=== PATIENT | female | born 1965 | race Caucasian/White ===

== ENCOUNTER 2018-03-13 15:04 | Emergency (ER) | payer OTHER ==
[2018-03-13] MEDS ORDERED: ALBUTEROL 2.5 MG/3 ML NEB SOL ONE (15:59)
[2018-03-13] MEDS ORDERED: IPRATROPIUM BROM 0.5MG/2.5ML ONE (15:59)
[2018-03-13 16:09] LABS: Urine Blood NEGATIVE (NEG); Urine Glucose TRACE (NEG); Urine Protein 1+ (NEG); Urine Specific Gravity >1.030 (1.005-1.030)
[2018-03-13 16:10] LABS: Absolute Lymphocytes (CBC) 1.6 K/uL (0.7-4.9); Absolute Monocytes 1.1 K/uL (0.1-1.3); Absolute Neutrophil 7.2 K/uL (1.8-8.0); Basophils % 0.4 % (0-1.3); Eosinophils % 2.6 % (0-4.4); Hematocrit 38.9 % (36.0-45.0); Lymphocytes % 15.9 % (15.3-44.8); MCH 30.6 pg (27.0-35.0); MCV 90.8 fL (80-100); MPV 8.8 fL (7.6-11.3); RBC Red Blood Cell Count 4.29 M/uL (3.86-4.86)
[2018-03-13 16:34] LABS: Albumin 3.5 g/dL (3.4-5.0); Bilirubin Total 0.5 mg/dL (0.2-1.0); Protein, Total 7.8 g/dL (6.4-8.2)
[2018-03-13 16:37] LABS: Potassium 2.8 mmol/L (3.5-5.1)
[2018-03-13] MEDS ORDERED: POTASSIUM CL SA 10 MEQ TAB PO ONE (17:01)
--- NOTE | 2018-03-13 17:17 | ER ---
Nurse's Notes [facility] Name: Luanne Sagastume Age: 53 yrs Sex: Female : 1965 Arrival Date: 03/13/2018 Time: 15:06 Bed 13 Private MD: None, None Diagnosis: Urinary tract infection, site not specified;Acute upper respiratory infection, unspecified;Cutaneous abscess of left upper limb;Cutaneous abscess of right upper limb;Chronic obstructive pulmonary disease, unspecified;Hypokalemia Presentation: 03/13 15:18 Presenting complaint: Patient states: i got bit by spider on my L arm, R arm, i noticed hj it Sunday; reports fever and chills; denies SOB;. Transition of care: patient was not received from another setting of care. Onset of symptoms was March 13, 2018. Risk Assessment: Do you want to hurt yourself or someone else? Patient reports no desire to harm self or others. Initial Sepsis Screen: Does the patient meet any 2 criteria? No. Patient's initial sepsis screen is negative. Does the patient have a suspected source of infection? No. Patient's initial sepsis screen is negative. Care prior to arrival: None. 15:18 Method Of Arrival: Ambulatory 15:18 Acuity: YINA 4 hj Triage Assessment: 15:20 General: Appears in no apparent distress. uncomfortable, Behavior is calm, cooperative, hj appropriate for age. Pain: Complains of pain in right arm and left arm. 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 - Social history:: Smoking status: Patient uses tobacco products, smokes one-half pack cigarettes per day, Patient/guardian denies using alcohol. - Ebola Screening: : Patient negative for fever greater than or equal to 101.5 degrees Fahrenheit, and additional compatible Ebola Virus Disease symptoms Patient denies exposure to infectious person Patient denies travel to an Ebola-affected area in the 21 days before illness onset. - Family history:: not pertinent. - Hospitalizations: : No recent hospitalization is reported. Screenin:20 Abuse screen: Denies threats or abuse. Denies injuries from another. Nutritional hj screening: No deficits noted. Tuberculosis screening: No symptoms or risk factors identified. Fall Risk None identified. Assessment: 15:40 General: Appears comfortable, Behavior is calm, cooperative. Pain: Complains of pain in aa5 right arm and left arm Pain does not radiate. Pain currently is 5 out of 10 on a pain scale. Quality of pain is described as tender, Is continuous. Neuro: Level of Consciousness is awake, alert, obeys commands, Oriented to person, place, time, situation. Cardiovascular: Heart tones S1 S2 present Rhythm is regular. Respiratory: Airway is patent Respiratory effort is even, unlabored, Respiratory pattern is regular, symmetrical, Breath sounds are clear bilaterally. GI: No signs and/or symptoms were reported involving the gastrointestinal system. : Reports burning with urination. EENT: Throat is clear with gag reflex present, Pt reports hoarse voice. Pt states "the poison of the spider is affecting my voice" . Derm: Skin is pink, warm \\T\\ dry. two scabbed wounds noted, one to right AC and one to left AC with mild swelling surrounding the wound, no redness or drainage noted. Musculoskeletal: Range of motion: intact in all extremities. 16:30 Reassessment: Patient and/or family updated on plan of care and expected duration. Pain aa5 level reassessed. Patient is alert, oriented x 3, equal unlabored respirations, skin warm/dry/pink. 16:55 Reassessment: Patient and/or family updated on plan of care and expected duration. Pain aa5 level reassessed. Patient is alert, oriented x 3, equal unlabored respirations, skin warm/dry/pink. Pt states "I take potassium at home but I haven't taken it in about 2 weeks because I am moving and I can't find the pills", pt was educated about importance of taking potassium replacement medication, pt verbalized understanding . 17:35 Reassessment: Patient is alert, oriented x 3, equal unlabored respirations, skin aa5 warm/dry/pink. Vital Signs: 15:21 BP 104 / 71; Pulse 100; Resp 18; Temp 97.9(O); Pulse Ox 93% on R/A; Weight 56.7 kg; hj Height 5 ft. 6 in. (167.64 cm); Pain 5/10; 16:00 BP 109 / 69; Pulse 90; Resp 16 S; Pulse Ox 100% on Nebulizer Mask; aa5 15:21 Body Mass Index 20.18 (56.70 kg, 167.64 cm) hj ED Course: 15:06 Patient arrived in ED. mr 15:07 None, None is Private Physician. mr 15:19 Triage completed. hj 15:20 Arm band placed on right wrist. hj 15:21 Patient has correct armband on for positive identification. Bed in low position. Call hj light in reach. Side rails up X 1. 15:24 Colette Shah FNP is PHCP. kav 15:24 Luis Manuel Gomez MD is Attending Physician. kav 15:31 Debra Aguilar, ALDO is Primary Nurse. aa5 16:00 Initial lab(s) drawn, by me, sent to lab. Inserted saline lock: 22 gauge in right hand, aa5 using aseptic technique. Blood collected. 16:00 No provider procedures requiring assistance completed. aa5 17:35 IV discontinued, intact, bleeding controlled, No redness/swelling at site. Pressure aa5 dressing applied. Administered Medications: 15:50 Drug: DuoNeb (3:1) (2.5 mg - 0.5 mg) 3 ml Route: Nebulizer; aa5 16:10 Follow up: Response: No adverse reaction aa5 16:55 Drug: Potassium Chloride 40 mEq Route: PO; aa5 17:35 Follow up: Response: No adverse reaction aa5 17:19 Drug: Potassium Chloride 20 mEq Route: PO; aa5 17:35 Follow up: Response: No adverse reaction aa5 Outcome: 17:17 Discharge ordered by . kav 17:35 Discharged to home ambulatory. aa5 17:35 Condition: stable 17:35 Discharge instructions given to patient, Instructed on discharge instructions, follow up and referral plans. medication usage, Demonstrated understanding of instructions, follow-up care, medications, Prescriptions given X 3. 17:36 Patient left the ED. aa5 Signatures: Colette Shah FNP FNP kav Rivera, Maria mr AguilarDebra, RN RN aa5 Gulshan Black RN RN hj Corrections: (The following items were deleted from the chart) 16:40 15:40 : No signs and/or symptoms were reported regarding the genitourinary system. [id number] 17:21 00:00 Reassessment: Patient and/or family updated on plan of care and expected aa5 duration. Pain level reassessed. Patient is alert, oriented x 3, equal unlabored respirations, skin warm/dry/pink. Pt states "I take potassium at home but I haven't taken it in about 2 weeks because I am moving and I can't find the pills", pt was educated about importance of taking potassium replacement medication, pt verbalized understanding . aa5
--- NOTE | 2018-03-13 17:18 | EDPHYS ---
Physician Documentation [facility] Name: Luanne Sagastume Age: 53 yrs Sex: Female : 1965 Arrival Date: 03/13/2018 Time: 15:06 Bed 13 Private MD: None, None ED Physician Luis Manuel Gomez HPI: 03/13 15:33 This 53 yrs old Female presents to ER via Ambulatory with complaints of Skin kav Sore(s). 15:34 The patient was bitten on the right arm and left arm. Onset: The symptoms/episode kav began/occurred acutely, 5 day(s) ago. Secondary to the bite the patient reports lesion LUE \T\ RUE. Associated signs and symptoms: Pertinent positives: erythema at site, Pertinent negatives: fever. Severity of symptoms: At their worst the symptoms were very mild, just prior to arrival. The patient has experienced similar episodes in the past, multiple times. The patient has not recently seen a physician, reports not seen by pcp x 2-3 years. 17:18 patient reports that she has not taken her potassium medication for the past two weeks. 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 - Social history:: Smoking status: Patient uses tobacco products, smokes one-half pack cigarettes per day, Patient/guardian denies using alcohol. - Ebola Screening: : Patient negative for fever greater than or equal to 101.5 degrees Fahrenheit, and additional compatible Ebola Virus Disease symptoms Patient denies exposure to infectious person Patient denies travel to an Ebola-affected area in the 21 days before illness onset. - Family history:: not pertinent. - Hospitalizations: : No recent hospitalization is reported. ROS: 15:34 Constitutional: Negative for fever, chills, and weight loss, Eyes: Negative for injury, kav pain, redness, and discharge, ENT: Negative for injury, pain, and discharge, Neck: Negative for injury, pain, and swelling, Cardiovascular: Negative for chest pain, palpitations, and edema, Abdomen/GI: Negative for abdominal pain, nausea, vomiting, diarrhea, and constipation, Back: Negative for injury and pain, MS/Extremity: Negative for injury and deformity, Neuro: Negative for headache, weakness, numbness, tingling, and seizure, Psych: Negative for depression, anxiety, suicide ideation, homicidal ideation, and hallucinations, Allergy/Immunology: Negative for hives, rash, and allergies, Endocrine: Negative for neck swelling, polydipsia, polyuria, polyphagia, and marked weight changes, Hematologic/Lymphatic: Negative for swollen nodes, abnormal bleeding, and unusual bruising. 15:34 Respiratory: Positive for cough, with yellow sputum, Negative for shortness of breath, wheezing. 15:34 : Positive for burning with urination. 15:34 Skin: Positive for lesions, of the left arm and right arm. Exam: 15:34 Constitutional: This is a well developed, well nourished patient who is awake, alert, kav and in no acute distress. Head/Face: Normocephalic, atraumatic. Eyes: Pupils equal round and reactive to light, extra-ocular motions intact. Lids and lashes normal. Conjunctiva and sclera are non-icteric and not injected. Cornea within normal limits. Periorbital areas with no swelling, redness, or edema. ENT: Nares patent. No nasal discharge, no septal abnormalities noted. Tympanic membranes are normal and external auditory canals are clear. Oropharynx with no redness, swelling, or masses, exudates, or evidence of obstruction, uvula midline. Mucous membranes moist. Neck: Trachea midline, no thyromegaly or masses palpated, and no cervical lymphadenopathy. Supple, full range of motion without nuchal rigidity, or vertebral point tenderness. No Meningismus. Chest/axilla: Normal chest wall appearance and motion. Nontender with no deformity. No lesions are appreciated. Cardiovascular: Regular rate and rhythm with a normal S1 and S2. No gallops, murmurs, or rubs. Normal PMI, no JVD. No pulse deficits. Back: No spinal tenderness. No costovertebral tenderness. Full range of motion. MS/ Extremity: Pulses equal, no cyanosis. Neurovascular intact. Full, normal range of motion. Neuro: Awake and alert, GCS 15, oriented to person, place, time, and situation. Cranial nerves II-XII grossly intact. Motor strength 5/5 in all extremities. Sensory grossly intact. Cerebellar exam normal. Normal gait. Psych: Awake, alert, with orientation to person, place and time. Behavior, mood, and affect are within normal limits. 15:34 Respiratory: the patient does not display signs of respiratory distress, Respirations: normal, no acute changes, Breath sounds: decreased breath sounds, that are mild, are located in both bases. 15:34 Skin: Appearance: normal except for affected area. Vital Signs: 15:21 BP 104 / 71; Pulse 100; Resp 18; Temp 97.9(O); Pulse Ox 93% on R/A; Weight 56.7 kg; hj Height 5 ft. 6 in. (167.64 cm); Pain 5/10; 16:00 BP 109 / 69; Pulse 90; Resp 16 S; Pulse Ox 100% on Nebulizer Mask; aa5 15:21 Body Mass Index 20.18 (56.70 kg, 167.64 cm) hj MDM: 15:31 Medical screening is not applicable. [facility] 15:34 Data reviewed: vital signs, nurses notes. [facility] 03/13 15:32 Order name: CBC with Diff; Complete Time: 16:20 [facility] 03/13 15:32 Order name: CMP; Complete Time: 16:48 [facility] 03/13 16:04 Order name: Urine Dipstick--Ancillary (enter results); Complete Time: 16:20 03/13 15:32 Order name: Urine Dipstick-Ancillary (obtain specimen); Complete Time: 16:06 [facility] Administered Medications: 15:50 Drug: DuoNeb (3:1) (2.5 mg - 0.5 mg) 3 ml Route: Nebulizer; aa5 16:10 Follow up: Response: No adverse reaction aa5 16:55 Drug: Potassium Chloride 40 mEq Route: PO; aa5 17:35 Follow up: Response: No adverse reaction aa5 17:19 Drug: Potassium Chloride 20 mEq Route: PO; aa5 17:35 Follow up: Response: No adverse reaction aa5 Disposition: 18:46 Co-signature as Attending Physician, Luis Manuel Gomez MD. rn Disposition: 03/13/18 17:17 Discharged to Home. Impression: Urinary tract infection, site not specified, Acute upper respiratory infection, unspecified, Cutaneous abscess of left upper limb, Cutaneous abscess of right upper limb, Chronic obstructive pulmonary disease, unspecified, Hypokalemia. - Condition is Stable. - Discharge Instructions: Skin Abscess, Chronic Obstructive Pulmonary Disease, Urinary Tract Infection, Adult, [id number], Upper Respiratory Infection, Adult, Kitv-im-Lpko, Hypokalemia. - Prescriptions for Cipro 500 mg Oral Tablet - take 1 tablet by ORAL route every 12 hours for 7 days; 14 tablet. benzonatate 100 mg Oral Capsule - take 1 capsule by ORAL route 3 times per day; 30 capsule. Combivent Respimat 20- 100 mcg/actuation Inhalation mist - inhale 1 puff by INHALATION route 4 times per day not to exceed 6 puffs in 24hrs; 1 unit. - Medication Reconciliation Form, Thank You Letter, Antibiotic Education, Prescription Opioid Use form. - Follow up: Private Physician; When: 5 - 6 days; Reason: Recheck today's complaints, Continuance of care, Re-evaluation by your physician. - Problem is new. - Symptoms have improved. Signatures: Dispatcher [employer] EDColette Villafuerte, MANIFEST CLERK MANIFEST CLERK Luis Manuel Toledo MD MD rn Calderon, Audri, RN RN aa5 Gulshan Black RN RN Corrections: (The following items were deleted from the chart) 17:36 17:17 03/13/2018 17:17 Discharged to Home. Impression: Urinary tract infection, site aa5 not specified; Acute upper respiratory infection, unspecified; Cutaneous abscess of left upper limb; Cutaneous abscess of right upper limb; Chronic obstructive pulmonary disease, unspecified; Hypokalemia. Condition is Stable. Discharge Instructions: Skin Abscess, Chronic Obstructive Pulmonary Disease, Urinary Tract Infection, Adult, Rfin-[id number], Upper Respiratory Infection, Adult, Irhl-ax-[id number]. Prescriptions for Cipro 500 mg Oral Tablet - take 1 tablet by ORAL route every 12 hours for 7 days; 14 tablet, benzonatate 100 mg Oral Capsule - take 1 capsule by ORAL route 3 times per day; 30 capsule. and Forms are Medication Reconciliation Form, Thank You Letter, Antibiotic Education, Prescription Opioid Use. Follow up: Private Physician; When: 5 - 6 days; Reason: Recheck today's complaints, Continuance of care, Re-evaluation by your physician. Problem is new. Symptoms have improved. [email or web address]
[2018-03-13 17:40] VITALS: BP 109/69; TEMP 97.9; O2SAT 100
== END 2018-03-13 17:36 | disposition home or self-care (01) ==
LOC: ER 15:04
DX: N39.0 Urinary tract infection, site not specified (principal); L02.414 Cutaneous abscess of left upper limb; L02.413 Cutaneous abscess of right upper limb; J06.9 Acute upper respiratory infection, unspecified; E87.6 Hypokalemia; J44.9 Chronic obstructive pulmonary disease, unspecified; E78.5 Hyperlipidemia, unspecified; E78.00 Pure hypercholesterolemia, unspecified; E03.9 Hypothyroidism, unspecified; F43.10 Post-traumatic stress disorder, unspecified
CPT/HCPCS: 36415; 80053; 81003; 85025; 94640; 99284

== ENCOUNTER 2019-03-04 19:10 | Emergency (ER) | payer OTHER ==
--- OUTSIDE RECORDS SUMMARY | 2019-03-04 19:11 | XMS REPORT ---
:1965 [facility] Address [address] [place] [address] Dr. Nichols [address] [place] [id number] Care Team Providers Name Role Phone Unavailable Unavailable Unavailable Problems This patient has no known problems. Allergies, Adverse Reactions, Alerts This patient has no known allergies or adverse reactions. Medications This patient has no known medications.
[2019-03-04] MEDS ORDERED: HYDROCODONE/APAP 7.5/325 MG TAB ONE (19:49)
--- NOTE | 2019-03-04 20:09 | RAD REPORT ---
EXAM DESCRIPTION: RAD - Hand Right 3 View - 03/04/2019 7:57 pm CLINICAL HISTORY: Fall, right hand pain COMPARISON: None. FINDINGS: No fracture is identified. There is no dislocation or periosteal reaction noted. No forei gn body. Soft tissues over the dorsum of the hand are prominent. IMPRESSION: Soft tissue swelling is evident over the dorsum of the hand. No acute bone or joint finding.
--- NOTE | 2019-03-04 20:25 | EDPHYS ---
Physician Documentation [facility] Name: Luanne Sagastume Age: 54 yrs Sex: Female : 1965 Arrival Date: 03/04/2019 Time: 19:17 Bed 5 Private MD: ED Physician Hugo Crane HPI: 03/05 06:42 This 54 yrs old Female presents to ER via Ambulatory with complaints of Hand tw4 Injury. 06:42 The patient or guardian reports a contusion, pain. The complaints affect the MCP of tw4 right index finger, MCP of right middle finger and MCP of right ring finger. Context: The problem was sustained at home. Onset: The symptoms/episode began/occurred yesterday. Modifying factors: The symptoms are alleviated by nothing, the symptoms are aggravated by nothing. Associated signs and symptoms: The patient has no apparent associated signs or symptoms. The patient has not experienced similar symptoms in the past. 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 - Social history:: Smoking status: Patient/guardian denies using tobacco. - Ebola Screening: : No symptoms or risks identified at this time No symptoms or risks identified at this time. ROS: 03/05 06:42 Constitutional: Negative for fever, chills, and weight loss, Eyes: Negative for injury, tw4 pain, redness, and discharge, Cardiovascular: Negative for chest pain, palpitations, and edema, Respiratory: Negative for shortness of breath, cough, wheezing, and pleuritic chest pain, Abdomen/GI: Negative for abdominal pain, nausea, vomiting, diarrhea, and constipation. MS/extremity: Positive for injury or acute deformity, contusion, pain. Exam: 06:42 Constitutional: This is a well developed, well nourished patient who is awake, alert, tw4 and in no acute distress. Head/Face: Normocephalic, atraumatic. 06:42 Musculoskeletal/extremity: Extremities: noted in the dorsal aspect of proximal phalanx of right index finger, dorsal aspect of proximal phalanx of right middle finger and dorsal aspect of proximal phalanx of right ring finger: contusion, erythema, pain, swelling, tenderness. Vital Signs: 03/04 19:33 BP 152 / 95; Pulse 92; Resp 18; Temp 98.1(TE); Pulse Ox 98% on R/A; Weight 62.14 kg; ea Height 5 ft. 6 in. (167.64 cm); Pain 0/10; 20:43 BP 117 / 81; Pulse 86; Resp 16; Temp 98; Pulse Ox 99% on R/A; rv 19:33 Body Mass Index 22.11 (62.14 kg, 167.64 cm) ea Procedures: 03/05 06:42 Splinting: Splint applied to dorsum of right hand and dorsal aspect of right wrist tw4 using wrist splint, applied by nurse. Examined by me, post splint application: neurovascular intact, 2+ distal pulses palpable, brisk capillary refill noted, Patient tolerated well. MDM: 03/04 19:20 Patient medically screened. tw4 03/05 06:42 Data reviewed: vital signs, nurses notes. Test interpretation: by ED physician or tw4 midlevel provider: plain radiologic studies. Counseling: I had a detailed discussion with the patient and/or guardian regarding: the historical points, exam findings, and any diagnostic results supporting the discharge/admit diagnosis. ED course: x ray negative for fracture. will place on antibiotics due to swelling and erythema to treat for cellulitis . 03/04 19:26 Order name: Hand Right 3 View XRAY tw4 Administered Medications: 03/04 19:30 Drug: Lyndora (7.5 mg-325 mg) 1 tabs Route: PO; rv 20:43 Follow up: Response: No adverse reaction; Pain is decreased rv Disposition: 03/04/19 20:24 Discharged to Home. Impression: Contusion of right hand, Cellulitis of right upper limb. - Condition is Stable. - Discharge Instructions: Contusion, Cellulitis, Adult, Hand Contusion. - Prescriptions for Ibuprofen 800 mg Oral Tablet - take 1 tablet by ORAL route every 8 hours As needed take with food; 30 tablet. Tylenol- Codeine #3 300-30 mg Oral Tablet - take 2 tablet by ORAL route every 6 hours As needed; 6 tablet. Cleocin 300 mg Oral Capsule - take 1 capsule by ORAL route every 6 hours for 10 days; 40 capsule. - Medication Reconciliation Form, Thank You Letter, Antibiotic Education, Prescription Opioid Use form. - Follow up: Private Physician; When: Upon discharge from the Emergency Department; Reason: If symptoms return, Recheck today's complaints, Continuance of care. Follow up: Jono Loya MD; When: Upon discharge from the Emergency Department; Reason: If symptoms return, Recheck today's complaints, Continuance of care. - Problem is new. - Symptoms have improved. Signatures: Dispatcher [employer] EDNicolette Gonzalez RN RN Hugo German MD MD tw4 Jose Arcos RN RN rv Corrections: (The following items were deleted from the chart) 20:44 20:24 03/04/2019 20:24 Discharged to Home. Impression: Contusion of right hand; rv Cellulitis of right upper limb. Condition is Stable. Forms are Medication Reconciliation Form, Thank You Letter, Antibiotic Education, Prescription Opioid Use. Follow up: Private Physician; When: Upon discharge from the Emergency Department; Reason: If symptoms return, Recheck today's complaints, Continuance of care. Follow up: Jono Loya; When: Upon discharge from the Emergency Department; Reason: If symptoms return, Recheck today's complaints, Continuance of care. Problem is new. Symptoms have improved. tw4 20:53 20:44 03/04/2019 20:24 Discharged to Home. Impression: Contusion of right hand; rv Cellulitis of right upper limb. Condition is Stable. Discharge Instructions: Contusion, Cellulitis, Adult, Hand Contusion. Prescriptions for Ibuprofen 800 mg Oral Tablet - take 1 tablet by ORAL route every 8 hours As needed take with food; 30 tablet, Tylenol-Codeine #3 300-30 mg Oral Tablet - take 2 tablet by ORAL route every 6 hours As needed; 6 tablet. and Forms are Medication Reconciliation Form, Thank You Letter, Antibiotic Education, Prescription Opioid Use. Follow up: Private Physician; When: Upon discharge from the Emergency Department; Reason: If symptoms return, Recheck today's complaints, Continuance of care. Follow up: Jono Loya; When: Upon discharge from the Emergency Department; Reason: If symptoms return, Recheck today's complaints, Continuance of care. Problem is new. Symptoms have improved. rv
--- NOTE | 2019-03-04 20:25 | ER ---
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 Transition of care: patient was not received from another setting of care. Onset of symptoms was March 04, 2019. Risk Assessment: Do you want to hurt yourself or someone else? Patient reports no desire to harm self or others. Initial Sepsis Screen: Does the patient meet any 2 criteria? No. Patient's initial sepsis screen is negative. Does the patient have a suspected source of infection? No. Patient's initial sepsis screen is negative. Care prior to arrival: None. 19:29 Method Of Arrival: Ambulatory ea 19:29 Acuity: YINA 4 ea Triage Assessment: 19:34 General: Appears in no apparent distress. General: Behavior is calm, cooperative, ea appropriate for age. Pain: Complains of pain in right hand. Injury Description: swelling to right hand. 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 - Social history:: Smoking status: Patient/guardian denies using tobacco. - Ebola Screening: : No symptoms or risks identified at this time No symptoms or risks identified at this time. Screenin:32 Abuse screen: Denies threats or abuse. Denies injuries from another. Nutritional rv screening: No deficits noted. Tuberculosis screening: No symptoms or risk factors identified. Fall Risk None identified. Assessment: 19:30 General: Appears in no apparent distress. uncomfortable, Behavior is calm, cooperative. rv Pain: Complains of pain in right hand. Neuro: Level of Consciousness is awake, alert, obeys commands, Oriented to person, place, time, situation. Cardiovascular: Patient's skin is warm and dry. Respiratory: Airway is patent. GI: No signs and/or symptoms were reported involving the gastrointestinal system. : No signs and/or symptoms were reported regarding the genitourinary system. EENT: No signs and/or symptoms were reported regarding the EENT system. Derm: Skin temperature is warm. Musculoskeletal: Swelling present in right hand. Vital Signs: 19:33 BP 152 / 95; Pulse 92; Resp 18; Temp 98.1(TE); Pulse Ox 98% on R/A; Weight 62.14 kg; ea Height 5 ft. 6 in. (167.64 cm); Pain 0/10; 20:43 BP 117 / 81; Pulse 86; Resp 16; Temp 98; Pulse Ox 99% on R/A; rv 19:33 Body Mass Index 22.11 (62.14 kg, 167.64 cm) ea ED Course: 19:17 Patient arrived in ED. es 19:20 Hugo Crane MD is Attending Physician. tw4 19:24 Jose Arcos, RN is Primary Nurse. rv 19:30 Triage completed. ea 19:30 Patient has correct armband on for positive identification. Bed in low position. Call ea light in reach. 19:33 Arm band placed on left wrist. Patient placed in an exam room, on a stretcher, on pulse ea oximetry. 20:00 Hand Right 3 View XRAY In Process Unspecified. EDMS 20:24 Jono Loya MD is Referral Physician. tw4 20:44 No provider procedures requiring assistance completed. Patient did not have IV access rv during this emergency room visit. 20:44 Velcro wrist splint applied to right wrist. rv 20:45 Primary Nurse role handed off by Jose Arcos, ALDO tw4 20:53 Jose Arcos, RN is Primary Nurse. rv Administered Medications: 19:30 Drug: Lutcher (7.5 mg-325 mg) 1 tabs Route: PO; rv 20:43 Follow up: Response: No adverse reaction; Pain is decreased rv Outcome: 20:24 Discharge ordered by MD. das 20:44 Discharged to home ambulatory. rv 20:44 Condition: good 20:44 Discharge instructions given to patient, Instructed on discharge instructions, follow up and referral plans. medication usage, Demonstrated understanding of instructions, follow-up care, medications, Prescriptions given X 4. 20:44 Patient left the ED. rv 20:53 Patient left the ED. rv Signatures: Dispatcher [employer] Mimi Kwong Elena, RN Hugo Brower ea, MD MD tw4 Jose Arcos RN RN rv
[2019-03-04 20:58] VITALS: BP 117/81; TEMP 98; O2SAT 99
== END 2019-03-04 20:53 | disposition home or self-care (01) ==
LOC: ER 19:10
DX: S60.221A Contusion of right hand, initial encounter (principal); Y92.009 Unspecified place in unspecified non-institutional (private) residence as the place of occurrence of the external cause; L03.113 Cellulitis of right upper limb
CPT/HCPCS: 99284

== ENCOUNTER 2019-04-08 08:41 | Inpatient (IN) | payer OTHER ==
--- OUTSIDE RECORDS SUMMARY | 2019-04-08 08:47 | XMS REPORT ---
:1965 [facility] [address] [place] [address] Dr. Nichols [address] [place] [id number] Care Team Providers Name Role Phone Unavailable Unavailable Unavailable Problems This patient has no known problems. Allergies, Adverse Reactions, Alerts This patient has no known allergies or adverse reactions. Medications This patient has no known medications.
[2019-04-08] MEDS ORDERED: MIDAZOLAM HCL 2 MG/2 ML INJ ONE ×2 (09:13→11:53)
[2019-04-08 09:17] LABS: Arterial Blood Carboxyhemoglob 0.5 % (0-1.5); Blood Gas Oxyhemoglobin 97.7 % (94-97); Blood O2 Saturation 99.3 % (92-98.5)
[2019-04-08 09:23] LABS: Absolute Lymphocytes (CBC) 3.5 K/uL (0.7-4.9); Basophils % 0.8 % (0-1.3); Hematocrit 40.1 % (36.0-45.0); Lymphocytes % 43.9 % (15.3-44.8); MPV 8.9 fL (7.6-11.3); RBC Red Blood Cell Count 4.29 M/uL (3.86-4.86)
[2019-04-08 09:27] LABS: Protime INR 0.93
[2019-04-08] MEDS ORDERED: NA CHLORIDE 0.9% 1,000 ML ONE (09:27)
--- NOTE | 2019-04-08 09:35 | ER ---
Nurse's Notes [facility] Name: Luanne Sagastume Age: 54 yrs Sex: Female : 1965 Arrival Date: 04/08/2019 Time: 08:43 Bed 3 Private MD: Diagnosis: Respiratory failure, unspecified with hypercapnia;Abuse of non-psychoactive substances Presentation: 04/08 08:40 Acuity: YINA 1 sv 08:40 Presenting complaint: EMS states: Pt was at home and found unresponsive by roommates, sv they believe she "shot up meth"; pinpoint pupils with agonal respirations; Narcan 4mg given and pt went into respiratory failure and HR-18; pt intubated with 7.0 ETT, 23-teeth, given etomidate 20 mg and succs 200 mg; waveform capnography 35-65 BP 190/106 HR-80 100% ambu bag. Given Versed 2mg HEALTH SAFETY ENGINEER for agitation. Transition of care: patient was not received from another setting of care. Onset of symptoms was April 08, 2019. Risk Assessment: Do you want to hurt yourself or someone else? Unable to obtain. Initial Sepsis Screen: Does the patient meet any 2 criteria? HR > 90 bpm. No. Patient's initial sepsis screen is negative. Does the patient have a suspected source of infection? No. Patient's initial sepsis screen is negative. Care prior to arrival: Oral intubation, IV initiated. 22 GA, in the left thumb, and IO to RLE Oxygen administered. via AMBU bag. 08:40 Method Of Arrival: EMS: [facility] sv Triage Assessment: 08:40 General: Appears unkempt, malnourished, Behavior is unresponsive. pt intubated. Pain: sv Unable to use pain scale. FLACC scale score is 0 out of 10. Patient is intubated. Patient is unresponsive. Neuro: Level of Consciousness is unresponsive, intubated. Respiratory: Airway via oral intubation Respiratory effort is even, unlabored. Derm: Skin is pale, Skin temperature is cold multiple track dailey noted all over pt's body. Historical: - Allergies: 10:00 No Known Allergies; sv - PMHx: 10:00 Asthma; FREE BLEEDER; High Cholesterol; Hyperlipidemia; Hypothyroidism; PTSD; sv - PSHx: 10:00 ; ankle; sv - Immunization history:: Adult Immunizations unknown. - Family history:: not pertinent. - Social history:: Smoking status: unknown. - Ebola Screening: : Unable to complete screening because patient is unresponsive, patient is intubated, patient does not understand. Screenin:17 Abuse screen: unknown. Nutritional screening: unknown. Tuberculosis screening: unknown. sv 10:57 Fall Risk None identified. sv Assessment: 09:28 Reassessment: PAtient to CT at this time VIA stretcher. heating repair technician, Gemini , CT tech and Denise Rascon RN accompanying. 10:09 Reassessment: Lab at the bedside obtaining . sv 10:57 Reassessment: Patient appears in no apparent distress at this time. No changes from sv previously documented assessment. Pt remains intubated. 11:50 Reassessment: Dr Jackson at the bedside. Pt became fully awake lifting herself off of the sv bed. Versed 4mg IVP order given by Dr Jackson. 11:58 Reassessment: Patient appears in no apparent distress at this time. No changes from sv previously documented assessment. Pt remains intubated and sedated. Pt waiting for ABG to be done before going upstairs. Vital Signs: 08:45 BP 117 / 93; Pulse 91; Resp 18; Pulse Ox 100% on ETT ambu; sv 09:00 BP 115 / 87; Pulse 80; Resp 16; Pulse Ox 100% on ETT ambu; sv 09:15 BP 95 / 72; Pulse 84 MON; Resp 18; Pulse Ox 100% on 40% FiO2 ETT vent; sv 09:20 BP 98 / 79; Pulse 82; Resp 16; Pulse Ox 100% on 40% FiO2 ETT vent; sv 09:30 BP 90 / 76; Pulse 83; Resp 20; Temp 95.3(C); Pulse Ox 100% on 40% FiO2 ETT vent; sv 09:45 BP 99 / 78; Pulse 77; Resp 18; Pulse Ox 100% on 40% FiO2 ETT vent; sv 10:00 BP 94 / 73; Pulse 79; Resp 18; Temp 95.2(C); Pulse Ox 98% on 40% FiO2 ETT vent; sv 10:30 BP 102 / 78; Pulse 74; Resp 18; Temp 94.6(C); Pulse Ox 95% on 40% FiO2 ETT vent; sv 11:00 BP 94 / 76; Pulse 74 MON; Resp 18; Temp 94.5(C); Pulse Ox 96% on 40% FiO2 ETT vent; sv 11:33 BP 92 / 71; Pulse 80; Resp 18; Temp 95.6(C); Pulse Ox 95% on 40% FiO2 ETT vent; sv 11:57 Temp 96.6(C); sv 09:15 Sinus Rhythm sv 11:00 Sinus Rhythm sv ED Course: 08:40 spring fitter helper on. Pulse ox on. NIBP on. sv 08:43 Patient arrived in ED. em1 08:45 Ronal Rutherford MD is Attending Physician. valente 08:50 NGT: inserted 14 Fr. other oral verified placement of air over stomach, verified return sv of gastric contents, to intermittent suction. Returned gastric contents. 08:52 EKG done, by technology resource teacher. reviewed by Ronal Rutherford MD. tc 08:55 Missed attempt(s): 20 gauge in right wrist. Bleeding controlled, band aid applied, sv catheter tip intact. 08:55 Arm band placed on. sv 08:55 Patient has correct armband on for positive identification. Placed in gown. Bed in low sv position. Call light in reach. Side rails up X2. 09:00 Initial lab(s) drawn, by tn, sent to lab. Inserted saline lock: 20 gauge in right sv wrist, using aseptic technique. Blood collected. Flushed right with 5 ml normal saline. 09:01 Radiology exam delayed due to RN TO CALL WHEN PT IS READY. 09:10 Ware cath inserted, using sterile technique, 16 Fr., by knapsack sprayer, balloon inflated, to sv gravity drainage, urine specimen collected. other done by Petra fuel cell battery technician, clement ware. 09:17 X-ray(s) taken. sv 09:22 Denise Rascon, RN is Primary Nurse. sv 09:22 Triage completed. sv 09:29 Teodora Jackson MD is Hospitalizing Provider. valente 09:30 XRAY Chest (1 view) In Process Unspecified. EDMS 09:37 CT completed. Patient tolerated procedure well. Patient moved to CT via stretcher. Patient moved back from CT. 09:39 CT Head Brain wo Cont In Process Unspecified. EDMS 11:58 No provider procedures requiring assistance completed. Patient admitted, IV remains in sv place. intact. 12:09 ABG drawn. by RT staff, on oxygen. sv Restraints: 09:00 Non-Violent Restraint: Order obtained. Initiated on April 08, 2019 at 09:00 Unable sv to provide Restraint education. pt intubated. Actions/Behavior observed: Confused/disoriented, has difficulty remembering/follow instructions, has impaired decision making, has decreased level of consciousness, unable to follow instructions, repeated attempts to remove/tamper lines/tubes/IV med devices \\T\\ wound dressing, repeated attempts to remove artifical airway/mechanical resp support, Less restrictive alternatives attempted: decrease environmental stimuli, 1:1 patient care, placed near Nurse station, reoriented to location, medications evaluated, medicated for pain/anxiety, lines/tubes covered, eliminated unnecessary lines/tubes, Alternative interventions: Ineffective. Clinical justification for use: airway protection, line protection, patient safety, Mental status: agitated/restless, confused, Cognition: poor judgement, poor safety awareness, impulsive, poor attention/concentration, unable to follow commands, short term memory loss, Circulation: Within defined parameters (based on Cardiovascular assessment) Skin integrity: Within defined parameters (based on Integumentary assessment) Signs of injury related to restraint: No injuries noted. Range of Motion (ROM): performed. Restraint status: Side rails up x 4 Started. Soft wrist restraint (Right) Started. Soft wrist restraint (Left) Started. Criteria to discontinue Restraint not met. Restraint continued. 11:00 Non-Violent Restraint: Unable to provide Restraint education. pt intubated and sedated. sv Actions/Behavior observed: Confused/disoriented, has difficulty remembering/follow instructions, has impaired decision making, has decreased level of consciousness, unable to follow instructions, repeated attempts to remove/tamper lines/tubes/IV med devices \\T\\ wound dressing, repeated attempts to remove artifical airway/mechanical resp support, Less restrictive alternatives attempted: decrease environmental stimuli, 1:1 patient care, placed near Nurse station, family at bedside, medications evaluated, medicated for pain/anxiety, lines/tubes covered, eliminated unnecessary lines/tubes, Alternative interventions: Ineffective. Clinical justification for use: airway protection, line protection, patient safety, Mental status: patient asleep, Cognition: poor judgement, poor safety awareness, impulsive, poor attention/concentration, unable to follow commands, short term memory loss, Circulation: Within defined parameters (based on Cardiovascular assessment) Skin integrity: Within defined parameters (based on Integumentary assessment) Signs of injury related to restraint: No injuries noted. Range of Motion (ROM): patient asleep. Hydration/Food: patient asleep. Elimination/Hygiene: with urinary catheter, Restraint status: Side rails up x 4 Continued. Soft wrist restraint (Right) Continued. Soft wrist restraint (Left) Continued. Criteria to discontinue Restraint not met. Restraint continued. Administered Medications: 09:15 Drug: Versed 4 mg Route: IVP; Site: right wrist; ss 09:37 Follow up: Response: No adverse reaction; Patient is sedated ss 09:45 Drug: NS 0.9% 1000 ml Route: IV; Rate: 1 bolus; Site: right wrist; sv 11:27 Follow up: Response: No adverse reaction; IV Status: Completed infusion; IV Intake: sv 1000ml 10:07 Drug: NS 0.9% 1000 ml Route: IV; Rate: 1 bolus; Site: left hand; sv 11:27 Follow up: Response: No adverse reaction; IV Status: Completed infusion; IV Intake: sv 1000ml 10:30 Drug: Cefepime 2 grams Route: IVPB; Rate: 200 ml/hr; Infused Over: 30 mins; Site: right sv wrist; 10:33 Follow up: Response: No adverse reaction; IV Status: Completed infusion; IV Intake: 20mlsv 10:32 Drug: NS 0.9% 1000 ml Route: IV; Rate: 125 ml/hr; Site: right wrist; sv 12:00 Follow up: Response: No adverse reaction; IV Status: Infusion continued upon admission sv 10:33 Drug: vancoMYCIN 1 grams Route: IVPB; Infused Over: 2 hrs; Site: right wrist; sv 12:01 Follow up: Response: No adverse reaction; IV Status: Completed infusion; IV Intake: sv 250ml 11:55 Drug: Versed 4 mg Route: IVP; Site: right wrist; sv 12:01 Follow up: Response: No adverse reaction; Marked relief of symptoms sv Intake: 10:33 IV: 20ml; Total: 20ml. sv 11:27 IV: 1000ml; Total: 1020ml. sv 11:27 IV: 1000ml; Total: 2020ml. sv 12:01 IV: 250ml; Total: 2270ml. sv Ventilator: 10:30 Fi02: 40%; Rate: 18min; T.V.: 510ml; Peep: 3cm; sv Outcome: 09:34 Decision to Hospitalize by Provider. valente 11:58 Admitted to ICU accompanied by nurse, accompanied by bora, via stretcher, room 1, with sv oxygen, on monitor, with chart, Report called to Mckayla CARLSON 11:58 Condition: stable 11:58 Instructed on the need for admit. 12:41 Patient left the ED. ss Signatures: Dispatcher [employer] Denise Ugalde, RN RN Ronal Rutherfrod MD MD cha Martinez, Riley em1 Karla Arizmendi RN RN Angi Robin, catheterization laboratory technician EKG Alanna Prabhakar Corrections: (The following items were deleted from the chart) 11:18 09:15 BP 95 / 72; Pulse 84bpm; Resp 18bpm; Pulse Ox 100% FiO2 40% vent; sv sv 12:01 12:00 Response: No adverse reaction; IV Status: Infusion continued upon admission sv sv 12:02 11:50 Reassessment: Dr Jackson at the bedside. sv sv
--- NOTE | 2019-04-08 09:36 | EDPHYS ---
Physician Documentation [facility] Name: Luanne Sagastume Age: 54 yrs Sex: Female : 1965 Arrival Date: 04/08/2019 Time: 08:43 Bed 3 Private MD: ED Physician Ronal Rutherford HPI: 04/08 08:49 This 54 yrs old Female presents to ER via Unassigned with complaints of valente respuiratory failure, overdose. 08:49 The patient has shortness of breath with light activity. valente 08:50 Onset: The symptoms/episode began/occurred just prior to arrival. Duration: The valente symptoms are continuous, and are steadily getting worse. The patient's shortness of breath has no apparent modifying factors. Possible causes: drug use, amphetamines. Associated signs and symptoms: Pertinent positives: collapse. intubated. Severity of symptoms: At their worst the symptoms were moderate. Associated signs and symptoms: The patient has no apparent associated signs or symptoms. Unable to obtain HPI due to obtunded state. 09:20 respiratory arrest, intubated. valente Historical: - Allergies: 10:00 No Known Allergies; sv - PMHx: 10:00 Asthma; FREE BLEEDER; High Cholesterol; Hyperlipidemia; Hypothyroidism; PTSD; sv - PSHx: 10:00 ; ankle; sv - Immunization history:: Adult Immunizations unknown. - Family history:: not pertinent. - Social history:: Smoking status: unknown. - Ebola Screening: : Unable to complete screening because patient is unresponsive, patient is intubated, patient does not understand. ROS: 08:51 Unable to obtain ROS due to obtunded state. valente Exam: 08:51 Head/Face: Normocephalic, atraumatic. valente 08:51 Cardiovascular: Rate: tachycardic, Rhythm: regular, Pulses: Pulses are 4+ in bilateral radial, brachial, femoral, popliteal, posterior tibial and and dorsalis pedis arteries.. Heart sounds: normal, Edema: is not appreciated, JVD: is not appreciated. 08:51 Respiratory: moderate respiratory distress is noted, Respirations: labored breathing, Breath sounds: rhonchi, that are mild. 09:20 Constitutional: The patient appears lethargic, in obvious distress, mildly distressed. valente 09:20 Musculoskeletal/extremity: Extremities: track dailey all over arms and legs. Vital Signs: 08:45 BP 117 / 93; Pulse 91; Resp 18; Pulse Ox 100% on ETT ambu; sv 09:00 BP 115 / 87; Pulse 80; Resp 16; Pulse Ox 100% on ETT ambu; sv 09:15 BP 95 / 72; Pulse 84 MON; Resp 18; Pulse Ox 100% on 40% FiO2 ETT vent; sv 09:20 BP 98 / 79; Pulse 82; Resp 16; Pulse Ox 100% on 40% FiO2 ETT vent; sv 09:30 BP 90 / 76; Pulse 83; Resp 20; Temp 95.3(C); Pulse Ox 100% on 40% FiO2 ETT vent; sv 09:45 BP 99 / 78; Pulse 77; Resp 18; Pulse Ox 100% on 40% FiO2 ETT vent; sv 10:00 BP 94 / 73; Pulse 79; Resp 18; Temp 95.2(C); Pulse Ox 98% on 40% FiO2 ETT vent; sv 10:30 BP 102 / 78; Pulse 74; Resp 18; Temp 94.6(C); Pulse Ox 95% on 40% FiO2 ETT vent; sv 11:00 BP 94 / 76; Pulse 74 MON; Resp 18; Temp 94.5(C); Pulse Ox 96% on 40% FiO2 ETT vent; sv 11:33 BP 92 / 71; Pulse 80; Resp 18; Temp 95.6(C); Pulse Ox 95% on 40% FiO2 ETT vent; sv 11:57 Temp 96.6(C); sv 09:15 Sinus Rhythm sv 11:00 Sinus Rhythm sv Ventilator: 10:30 Fi02: 40%; Rate: 18min; T.V.: 510ml; Peep: 3cm; sv MDM: 08:51 Data reviewed: vital signs, nurses notes, lab test result(s), EKG, radiologic studies, [facility] CT scan, plain films. 08:53 Patient medically screened. [facility] 04/08 08:48 Order name: Basic Metabolic Panel [facility] 04/08 08:48 Order name: CBC with Diff; Complete Time: 09:29 [facility] 04/08 08:48 Order name: LFT's [facility] 04/08 08:48 Order name: Magnesium [facility] 04/08 08:48 Order name: NT PRO-BNP [facility] 04/08 08:48 Order name: PT-INR; Complete Time: 09:54 [facility] 04/08 08:48 Order name: Troponin (emerg Dept Use Only) [facility] 04/08 08:48 Order name: Acetaminophen [facility] 04/08 08:48 Order name: ETOH Level; Complete Time: 09:55 [facility] 04/08 08:48 Order name: Ptt, Activated; Complete Time: 09:54 [facility] 04/08 08:48 Order name: Salicylate; Complete Time: 10:37 [facility] 04/08 08:48 Order name: Urine Drug Screen; Complete Time: 10:37 [facility] 04/08 08:48 Order name: Lipase [facility] 04/08 08:48 Order name: ABG; Complete Time: 10:16 [facility] 04/08 08:48 Order name: XRAY Chest (1 view) [facility] 04/08 08:48 Order name: EKG; Complete Time: 08:52 [facility] 04/08 08:48 Order name: CT Head Brain wo Cont; Complete Time: 10:16 [facility] 04/08 08:48 Order name: Blood Culture Adult (2) [facility] 04/08 08:48 Order name: Procalcitonin; Complete Time: 10:37 [facility] 04/08 08:48 Order name: Lactate; Complete Time: 09:55 [facility] 04/08 08:48 Order name: Urine Culture [facility] 04/08 09:52 Order name: Urine Dipstick--Ancillary (enter results) em1 04/08 11:54 Order name: ABG jl7 04/08 08:48 Order name: Cardiac monitoring; Complete Time: 09:16 [facility] 04/08 08:48 Order name: EKG - Nurse/Tech; Complete Time: 09:16 [facility] 04/08 08:48 Order name: IV Saline Lock; Complete Time: 09:16 [facility] 04/08 08:48 Order name: Labs collected and sent; Complete Time: 09:16 [facility] 04/08 08:48 Order name: O2 Per Protocol; Complete Time: 09:16 [facility] 04/08 08:48 Order name: O2 Sat Monitoring; Complete Time: 09:15 [facility] 04/08 08:48 Order name: Urine Dipstick-Ancillary (obtain specimen); Complete Time: 10:07 [facility] 04/08 08:48 Order name: Zavala; Complete Time: 09:15 [facility] 04/08 10:07 Order name: Misc. Order: OK to get blood draw from feet.; Complete Time: 10:07 sv 04/08 10:35 Order name: Restraint:Non-Violent; Complete Time: 10:36 sv Administered Medications: 09:15 Drug: Versed 4 mg Route: IVP; Site: right wrist; ss 09:37 Follow up: Response: No adverse reaction; Patient is sedated ss 09:45 Drug: NS 0.9% 1000 ml Route: IV; Rate: 1 bolus; Site: right wrist; sv 11:27 Follow up: Response: No adverse reaction; IV Status: Completed infusion; IV Intake: sv 1000ml 10:07 Drug: NS 0.9% 1000 ml Route: IV; Rate: 1 bolus; Site: left hand; sv 11:27 Follow up: Response: No adverse reaction; IV Status: Completed infusion; IV Intake: sv 1000ml 10:30 Drug: Cefepime 2 grams Route: IVPB; Rate: 200 ml/hr; Infused Over: 30 mins; Site: right sv wrist; 10:33 Follow up: Response: No adverse reaction; IV Status: Completed infusion; IV Intake: 20mlsv 10:32 Drug: NS 0.9% 1000 ml Route: IV; Rate: 125 ml/hr; Site: right wrist; sv 12:00 Follow up: Response: No adverse reaction; IV Status: Infusion continued upon admission sv 10:33 Drug: vancoMYCIN 1 grams Route: IVPB; Infused Over: 2 hrs; Site: right wrist; sv 12:01 Follow up: Response: No adverse reaction; IV Status: Completed infusion; IV Intake: sv 250ml 11:55 Drug: Versed 4 mg Route: IVP; Site: right wrist; sv 12:01 Follow up: Response: No adverse reaction; Marked relief of symptoms sv Disposition: 04/08/19 09:34 Hospitalization ordered by Teodora Jackson for Inpatient Admission. Preliminary diagnosis are Respiratory failure, unspecified with hypercapnia, Abuse of non-psychoactive substances. - Bed requested for Intensive Care Unit. - Status is Inpatient Admission. ss - Condition is Serious. - Problem is new. - Symptoms have improved. UTI on Admission? No Signatures: Dispatcher [employer] Denise Ugalde RN RN sv Woody, Diana, RN RN dw Anderson, Corey, MD MD cha Smirch, Shelby, RN RN ss Corrections: (The following items were deleted from the chart) 11:33 09:34 Hospitalization Ordered by Teodora Jackson MD for Inpatient Admission. Preliminary dw diagnosis is Respiratory failure, unspecified with hypercapnia; Abuse of non-psychoactive substances. Bed requested for Intensive Care Unit. Status is Inpatient Admission. Condition is Serious. Problem is new. Symptoms have improved. UTI on Admission? No. valente 12:41 11:33 04/08/2019 09:34 Hospitalization Ordered by Teodora Jackson MD for Inpatient ss Admission. Preliminary diagnosis is Respiratory failure, unspecified with hypercapnia; Abuse of non-psychoactive substances. Bed requested for Intensive Care Unit. Status is Inpatient Admission. Condition is Serious. Problem is new. Symptoms have improved. UTI on Admission? No. dw
[2019-04-08] MEDS ORDERED: CEFEPIME/SWI 2gm 2 GM/20 ML SYR IV ONE (09:45)
[2019-04-08] MEDS ORDERED: VANCOMYCIN/NS 1 gm 1 GM/250 ML BAG IV ONE (09:45)
--- NOTE | 2019-04-08 09:47 | RAD REPORT ---
EXAM DESCRIPTION: CT - Head Brain Wo Cont - 04/08/2019 9:38 am CLINICAL HISTORY: Alteration of awareness/confusion COMPARISON: 2016 TECHNIQUE: Computed axial tomography of the head was obtained. IV contrast was not requested. All CT scans are performed using dose optimization technique as appropriate and may include automated exposure control or mA/KV adjustment according to patient size. FINDINGS: An intracranial bleed is not seen . The ventricles are normal in caliber. No extra-axial fluid collection is noted. Fluid within the sinuses/ mastoids is not seen. IMPRESSION: No acute intracranial abnormality is seen. If patient's symptoms persist MRI of the bra in would be recommended.
--- NOTE | 2019-04-08 09:48 | RAD REPORT ---
EXAM DESCRIPTION: Mirlande Single View04/08/2019 9:30 am CLINICAL HISTORY: Cough COMPARISON: 2016 FINDINGS: The lungs appear clear of acute infiltrate. The heart is normal size. A nasogastric tube is present stomach IMPRESSION: No acute abnormalities displayed
[2019-04-08] MEDS ORDERED: NA CHLORIDE 0.9% 2,000 ML ONE (10:04)
[2019-04-08 10:20] LABS: Barbiturates NEGATIVE (NEGATIVE); Benzodiazepines POSITIVE (NEGATIVE); Cocaine NEGATIVE (NEGATIVE); METHAMPHETAM POSITIVE (NEGATIVE); Methadone NEGATIVE (NEGATIVE); Opiates POSITIVE (NEGATIVE); Phencyclidine NEGATIVE (NEGATIVE); THC Cannibis NEGATIVE (NEGATIVE)
[2019-04-08 10:56] LABS: ALT/SGPT 37 U/L (12-78); Albumin 3.6 g/dL (3.4-5.0); Alkaline Phosphatase 72 U/L (45-117); BUN Blood Urea Nitrogen 27 mg/dL (7-18); Bicarbonate 29 mmol/L (21-32); Bilirubin Direct < 0.1 mg/dL (0-0.2); Bilirubin Total 0.1 mg/dL (0.2-1.0); Glucose Level 257 mg/dL (74-106); Lipase 126 U/L (73-393); NT PRO-BNP 34 pg/mL (<125); Protein, Total 7.3 g/dL (6.4-8.2); Sodium Level 143 mmol/L (136-145); Troponin (Emerg Dept Use Only) < 0.02 ng/mL (0.0-0.045)
[2019-04-08 11:02] LABS: AST/SGOT 33 U/L (15-37); Magnesium 2.4 mg/dL (1.8-2.4)
[2019-04-08] MEDS ORDERED: ALBUTEROL 2.5 MG/3 ML NEB SOL NEB PRN (11:50)
[2019-04-08] MEDS ORDERED: FENTANYL CITR 100 MCG/2 ML IV PRN (11:50)
[2019-04-08] MEDS ORDERED: ONDANSETRON 4 MG/2 ML VIAL IV PRN (11:50)
[2019-04-08] MEDS ORDERED: PROPOFOL 1,000 MG/100 ML VIAL IV PRN (11:50)
[2019-04-08] MEDS ORDERED: HALOPERIDOL LACT 5 MG/ML INJ IV PRN (11:50)
[2019-04-08 12:10] LABS: Arterial Blood Carboxyhemoglob 0.7 % (0-1.5); Blood Gas Oxyhemoglobin 93.9 % (94-97); Blood O2 Saturation 95.6 % (92-98.5)
[2019-04-08 12:45] LABS: Urine Blood NEGATIVE (NEG); Urine Glucose 2+ (NEG); Urine Protein NEGATIVE (NEG); Urine Specific Gravity 1.025 (1.005-1.030)
[2019-04-08 13:18] VITALS: BMI 22.8
[2019-04-08] MEDS: D5 0.45 NS 1,000 ML IV SCH ×2 (14:51→23:10)
--- NOTE | 2019-04-08 17:35 | EKG ---
Test Date: 2019-04-08 Test Time: 08:47:57 Public Relations Consultant: TRACE MEASUREMENT RESULTS: Intervals: Rate: 85 MD: 172 QRSD: 86 QT: 410 QTc: 487 [place]: P: 67 MD: 172 QRS: 61 T: 74 INTERPRETIVE STATEMENTS: Normal sinus rhythm Prolonged QT Abnormal ECG No previous ECG available for comparison Electronically Signed On 04-08-19 17:33:53 CDT by John Trujillo
[2019-04-08] MEDS: ENOXAPARIN 40 MG/0.4 ML SQ SCH (19:26)
[2019-04-08] MEDS: MIDAZOLAM HCL 2 MG/2 ML INJ IV PRN ×2 (19:45→22:20)
[2019-04-08] MEDS: LORazepam 2 MG/ML VIAL IV PRN ×3 (20:00→23:55)
--- NOTE | 2019-04-08 20:39 | HP ---
Date of Admission: 04/08/2019 Code Status: Full. Chief Complaint: Drug overdose, altered mental status, respiratory failure. History Of Present Illness: The patient is a 54-year-old female with past medical history of asthma, PTSD, schizophrenia, anxiety, insomnia, hepatitis C, who was in her usual state of health, lives with a roommate, was found down by the roommates and therefore EMS was called. The patient was short of breath, had decreased level of mentation and collapsed and therefore was intubated on the scene. The patient is known to have drug abuse including current use of amphetamines. The patient was therefore admitted to the hospital for further evaluation. In the ER, her workup revealed negative UA. Lactate was elevated at 3. ABG showed acidosis. White blood cell count was normal. Acetaminophen level was negative as was the alcohol level shows positive for amphetamines, benzodiazepines and opiates. However, she did receive Versed and opiates in the ER. UDS was obtained after these medications. CT scan of the head did not show any acute changes. Past Medical History: Asthma, PTSD, schizophrenia, anxiety, insomnia and hepatitis C. Past Surgical History: and right ankle surgery. Medications: List reviewed. Allergies: NO KNOWN DRUG ALLERGIES. Social History: Positive for nicotine. Positive for smoking cigarettes and illicit drug use. Rare alcohol use. Family History: Not pertinent. Reviewed. Review of systems: 10 point system reviewed and negative except as per HPI. Physical Examination: Vital Signs: Blood pressure 117/93, respirations 18, heart rate 91, O2 of 100% on ET tube at 40% FiO2. General: Asleep but arousable, agitated, once awake, ill-appearing female. CV: S1, S2. Regular rate and rhythm. Peripheral pulses present. Respiratory: Diminished breath sounds. No wheezing or stridor. Gastrointestinal: Abdomen is soft, nontender, nondistended. Positive bowel sounds. No guarding or rigidity. Extremities: No clubbing, cyanosis, or edema. No calf tenderness. Neuro: Cranial nerves 2 through 12 intact grossly. No focal neurological deficit. Moves all 4 extremities. Intubated, partially sedated. Laboratory Data: UDS positive for opiates, amphetamines and benzodiazepines. Acetaminophen level less than 2. WBC 7.9, H and H 12.9 and 40.1, platelets 208. INR 0.93. ABG; pH 7.27, pCO2 of 56.8, pO2 of 61.6, bicarb 25. Sodium 143 , potassium 4, chloride 107, CO2 of 29, BUN 27, creatinine 0.95, glucose 257, lactate 3, calcium 8, magnesium 2.4. AST 33, ALT 37, alkaline phosphatase 72. Troponin less than 0.02. Total bilirubin 0.1. BNP 34. Total protein 7.3, albumin 3.6, lipase 126. Procalcitonin less than 0.05. UA is negative. It does show 2+ glucose. CT scan of the head shows no acute intracranial abnormality. Assessment: A 54-year-old female with: 1. Acute toxic encephalopathy, likely related to drug use. Patient became more alert. 2. Acute respiratory failure with hypoxia, currently on mechanical ventilation. Repeat ABG and wean off ventilator as soon as possible likely secondary to drug overdose. 3. Drug abuse with methamphetamines. UDS is positive. We will world travel counselor once more alert. 4. Nicotine dependence with cigarette smoking, counseled once awake. 5. Intermittent asthma. 6. History of insomnia. 7. Generalized anxiety disorder. 8. History of schizophrenia. 9. Post-traumatic stress disorder. 10. Metabolic acidosis. We will continue with IV fluid resuscitation. Repeat lactate level. Plan: Admit the patient to ICU. Place as inpatient. Length of stay greater than 2 midnights. LEX Voice ID: [id number] MTDD
[2019-04-09] MEDS: MIDAZOLAM HCL 2 MG/2 ML INJ IV PRN ×3 (00:20→07:45)
[2019-04-09] MEDS: FAMOTIDINE 20 MG/2 ML VIAL IV SCH ×3 (00:55→21:56)
[2019-04-09] MEDS: LORazepam 2 MG/ML VIAL IV PRN (04:30)
[2019-04-09 05:11] LABS: Absolute Lymphocytes (CBC) 1.2 K/uL (0.7-4.9); Basophils % 0.4 % (0-1.3); Hematocrit 34.5 % (36.0-45.0); Lymphocytes % 11.3 % (15.3-44.8); MPV 8.7 fL (7.6-11.3); RBC Red Blood Cell Count 3.82 M/uL (3.86-4.86)
[2019-04-09 05:35] LABS: BUN Blood Urea Nitrogen 11 mg/dL (7-18); Bicarbonate 28 mmol/L (21-32); Glucose Level 114 mg/dL (74-106); Magnesium 1.8 mg/dL (1.8-2.4); Potassium 3.4 mmol/L (3.5-5.1); Sodium Level 140 mmol/L (136-145)
[2019-04-09] MEDS: D5 0.45 NS 1,000 ML IV SCH ×3 (06:30→21:57)
--- NOTE | 2019-04-09 13:04 | P.CNS ---
Date of Consult: 04/09/19 Reason for Consult: Respiratory failure Chief Complaint: Respiratory failure History of Present Illness: Patient is 54 years of age admitted to the ICU on a ventilator. Multiple medical problems he is found to be unresponsive EMS was called resume shortness of breath history of drug abuse. 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 -: hyperlipidemia -: hypothyroidism -: ptsd -: -: Right ankle reconstruction - Social History Smoking Status: Unknown if ever smoked Alcohol use: No CD- Drugs: No Caffeine use: Yes Place of Residence: Home Review of Systems is unable to be obtained Physical Examination Temp Pulse Resp BP Pulse Ox 99.6 F 89 30 H 122/65 97 04/09/19 04:00 04/09/19 11:00 04/09/19 11:00 04/09/19 11:00 04/09/19 11:00 General: Alert, Oriented x3 Respiratory: Clear to auscultation bilaterally Cardiovascular: No edema, Regular rate/rhythm - Problems (1) Respiratory failure Current Visit: Yes Status: Acute Plan: Patient is 54 years of age admitted from a drug overdose unresponsive fishes done well on a ventilator patient was weaned off and extubated chest x-ray clear she will need to be in the evaluated for suicidal ideation before discharge currently patient is not taking any medication is not under psychiatric care
[2019-04-09] MEDS ORDERED: HALOPERIDOL LACT 5 MG/ML INJ IM PRN (13:37)
[2019-04-09] MEDS ORDERED: DIPHENHYDRAMINE 50 MG/ML VIAL IV PRN (13:38)
[2019-04-09] MEDS: ENOXAPARIN 40 MG/0.4 ML SQ SCH (16:45)
[2019-04-09] MEDS ORDERED: POTASSIUM CL SA 10 MEQ TAB PO ONE (18:00)
--- NOTE | 2019-04-09 18:31 | PN ---
Date of Progress Note: 04/09/2019 Subjective: Patient seen and examined. Chart reviewed and case discussed with RN and Dr. Dean. Patient was extubated earlier this morning, still somewhat sedated. However, when she does wake up, is very much agitated, pulling IV lines out, uncooperative. Medications List: Reviewed. Physical Examination: Vital Signs: Temperature 99.6, heart rate 84, blood pressure 124/78, respirations 16, O2 of 100% on 2 L via nasal cannula. General: On my exam was drowsy, however, did open eyes and follow some commands. Appears older than stated age. CV: S1, S2. Regular rate and rhythm. Peripheral pulses present. Respiratory: Moving air well bilaterally. No wheezing. Gastrointestinal: Abdomen is soft, nontender, nondistended. Positive bowel sounds. Extremities: No clubbing, cyanosis, or edema. Neurologic: Nonfocal. Moves all 4 extremities. Opens eyes to name and does follow commands. Skin: Patient has track dailey in multiple areas including lower extremities, upper extremities, toes. Psych: Mood: dysphoric. Affect congruent with mood. Insight and judgement are poor. Laboratory Data: Sodium 140, potassium 3.4, chloride 106, CO2 of 28, BUN 11, creatinine 0.48, glucose 114. Repeat lactate is 0.5 yesterday. Calcium 7.8. Magnesium 1.8. WBC 10.4, H and H are 11.7 and 34.5, platelets 165, neutrophils 82%. Blood cultures no growth to date. Urine culture growing out mixed ramo. Assessment: 1. Acute toxic encephalopathy, likely related to drug use. Patient is more alert. 2. Acute respiratory failure with hypoxia, now extubated, secondary to above. 3. Intentional drug abuse with methamphetamines. Patient is still not alert enough for counseling. Would recommend a drug rehab versus inpatient psychiatric facility transfer on voluntary basis. There is no suicidal intent. 4. Metabolic acidosis, improved likely due to respiratory depression. Repeat lactate level is normal. No signs of sepsis. 5. Acute delirium, likely related to drug withdrawal. We will use Haldol and Benadryl p.r.n. 6. History of insomnia. 7. Generalized anxiety disorder, stable. 8. History of schizophrenia. 9. Post-traumatic stress disorder, stable. 10. Nicotine dependence with cigarette smoking, uncomplicated. 11. Intermittent asthma. Continue with albuterol as needed. 12. Deep venous thrombosis prophylaxis with Lovenox. Plan: Recreation Specialist once the patient is more awake. Recommend inpatient drug rehab versus psychiatric facility; however, will be on voluntary basis. LEX Voice ID: [id number] Report ID: [id number] MTDD
--- NOTE | 2019-04-09 21:00 | P.PN ---
Subjective Date of Service: 04/09/19 Chief Complaint: Patient wanting to leave AMA, Nephew at bedside Subjective: Other (resting in bed) Physical Examination - Vital Signs Temperature: 98.6 F Blood Pressure: 94/67 Pulse: 105 Respirations: 22 Pulse Ox (%): 88 - Physical Exam General: Alert, Other (increased somnolence) Respiratory: Clear to auscultation bilaterally, Other (poor inspiration and expiration) - Studies Microbiology Data (last 24 hrs): 04/08/19 10:12 Blood - Blood Anaerobic Blood Culture - Final 04/08/19 10:17 Blood - Blood Anaerobic Blood Culture - Final Assessment & Plan Discharge Plan: Home Plan to discharge in: 24 Hours Physician Review Additional Text: Patient wanting to leave AMA. Notes reviewed. Patient extubated earlier today. Recommend not to leave until at least tomorrow when her strength is better. Will need to obtain home meds to review and restart. Case discussed with Nephew who takes care of the patient. He agrees with plan to keep the patient in the hospital for at least until tomorrow. Will discuss with Hospitalist team tomorrow about plan of care. There was some discussion about sending the patient to inpatient drug rehab vs inpatient psych but the patient and family will likely not agree. Patient needs to be more alert, able to walk and taking good oral intake better. Will continue to monitor and make sure patient remains in the hospital. Time Spent Managing Pts Care (In Minutes): 30
[2019-04-09] MEDS ORDERED: LIDOCAINE 1% MPF 5 ML VIAL ONE (21:45)
[2019-04-09] MEDS: ARFORMOTEROL TARTRATE 15 MCG/2 ML VIAL.NEB NEB SCH (21:55)
[2019-04-09] MEDS: IPRATROPIUM BROM 0.5MG/2.5ML NEB PRN (21:55)
[2019-04-10] MEDS ORDERED: KCL 20 MEQ/100 mL IVPB 20 MEQ/100 ML BAG IV SCH ×2 (01:00→06:00)
[2019-04-10] MEDS: IPRATROPIUM BROM 0.5MG/2.5ML NEB PRN ×2 (03:50→07:38)
[2019-04-10] MEDS: ALBUTEROL 2.5 MG/3 ML NEB SOL NEB PRN ×2 (03:50→07:38)
[2019-04-10 05:02] LABS: Absolute Lymphocytes (CBC) 1.5 K/uL (0.7-4.9); Basophils % 0.4 % (0-1.3); Hematocrit 35.8 % (36.0-45.0); Lymphocytes % 17.1 % (15.3-44.8); MPV 8.4 fL (7.6-11.3); RBC Red Blood Cell Count 3.95 M/uL (3.86-4.86)
[2019-04-10 05:14] LABS: BUN Blood Urea Nitrogen 4 mg/dL (7-18); Bicarbonate 29 mmol/L (21-32); Glucose Level 114 mg/dL (74-106); Magnesium 2.2 mg/dL (1.8-2.4); Potassium 3.6 mmol/L (3.5-5.1); Sodium Level 142 mmol/L (136-145)
--- NOTE | 2019-04-10 07:34 | EKG ---
Test Date: 2019-04-09 Test Time: 17:51:45 Adjuster Piano Action: NEERAJ MEASUREMENT RESULTS: Intervals: Rate: 93 ME: 160 QRSD: 90 QT: 362 QTc: 450 [place]: P: 80 ME: 160 QRS: 74 T: 81 INTERPRETIVE STATEMENTS: Normal sinus rhythm Septal infarct, age undetermined Abnormal ECG Compared to ECG 04/08/2019 08:47:57 Myocardial infarct finding now present Prolonged QT interval no longer present Electronically Signed On 04-10-19 07:32:56 CDT by Bao Burgess
[2019-04-10] MEDS: ARFORMOTEROL TARTRATE 15 MCG/2 ML VIAL.NEB NEB SCH (07:38)
[2019-04-10] MEDS: FAMOTIDINE 20 MG/2 ML VIAL IV SCH (08:08)
[2019-04-10] MEDS: D5 0.45 NS 1,000 ML IV SCH (08:08)
--- NOTE | 2019-04-10 08:25 | RAD REPORT ---
EXAM DESCRIPTION: Mirlande Single View04/10/2019 7:56 am CLINICAL HISTORY: Shortness of breath COMPARISON: April 08 FINDINGS: Endotracheal and nasogastric tubes have been removed. Left lateral base is hazy which may indicate a small pleural effusion or mild atelectasis. The right lung appears clear. The heart is normal size
[2019-04-10 09:01] VITALS: O2SAT 93
--- NOTE | 2019-04-10 11:39 | EKG ---
Test Date: 2019-04-10 Test Time: 08:28:57 Rater Associate: JENNY MEASUREMENT RESULTS: Intervals: Rate: 95 UT: 140 QRSD: 84 QT: 364 QTc: 457 [place]: P: 53 UT: 140 QRS: 16 T: 61 INTERPRETIVE STATEMENTS: Normal sinus rhythm Septal infarct, age undetermined Abnormal ECG Compared to ECG 04/09/2019 17:51:45 No significant changes Electronically Signed On 04-10-19 11:39:18 CDT by John Trujillo
[2019-04-10 13:09] VITALS: BP 111/69; TEMP 98.1
--- NOTE | 2019-04-11 07:36 | DS ---
Date of Discharge: 04/10/2019 Financial Service Rep: Dr. Dean with Pulmonology. Admitting Diagnoses: 1.Acute toxic encephalopathy. 2.Acute respiratory failure with hypoxia. 3.Drug abuse with methamphetamines. 4.Nicotine dependence with cigarette smoking. 5.Intermittent asthma. 6.History of insomnia. 7.Generalized anxiety disorder. 8.History of schizophrenia. 9.Posttraumatic stress disorder. 10.Metabolic acidosis. Discharge Diagnoses: 1.Acute toxic encephalopathy, resolved. 2.Acute respiratory failure with hypoxia, resolved, saturating well on room air. 3.Intentional drug abuse with methamphetamines and heroin, counseled. 4.Nicotine dependence with cigarette smoking, uncomplicated. 5.Intermittent asthma. 6.History of insomnia. 7.Generalized anxiety disorder. 8.History of schizophrenia. 9.Posttraumatic stress disorder. 10.Metabolic acidosis, resolved. 11.Acute delirium, resolved. Hospital Course: The patient is a 54-year-old female with a past medical history of asthma, PTSD, an xiety, insomnia, hepatitis C, and also apparent schizophrenia, who was discharged by her PCP and no l onger had her usual medications. She did not find a different PCP and has not been to a psychiatrist . The patient does have a history of inpatient psych facility admission approximately 10 years ago. The patient came in after roommates found her collapsed. She was intubated on the scene. The patie nt was found to be using methamphetamines and also stated that she added heroin to the drugs. The pa alfreda initially was acidotic, had a lactate of 3. She was started on IV fluids. Dr. Dean with P ulmonology was consulted for delayed ventilatory management. The patient was able to be extubated wi thin 24 hours. Poison Control was also called. She did have actually a prolonged QTc on her EKG. R epeat EKG showed improvement. The patient did require some time before she became alert and oriented . She was delirious and her altered mental status was likely due to her withdrawal and drug intoxica tion. The patient was counseled regarding her drug use. She states that she has no plans to stop at this time, states that she has to medicate herself somehow. She is also not willing to go to an inp atient psych facility or to drug rehab voluntarily. The patient was evaluated by [facility] at [facility] and not found to be suicidal. The patient denied any suicidal ideation or homicidal ideation. The p atient was oriented x3, wanted to leave AMA yesterday, however, was counseled and decided to stay. T he patient has been able to ambulate, able to tolerate her diet. Unfortunately, patient does not wan t any further help in terms of inpatient psych facility transfer or drug rehab transfer. The patient will need to establish care with PCP. List of primary care physicians will be given to the patient. She will also need to follow up with [facility]. The patient was then discharged to home in a stable condition. Activity: As tolerated. Medications: As per medication reconciliation list. Followup: Establish care with primary care physician and follow up with [facility] tomorrow. R eturn to ER for worsening condition. Diet: Regular. Activity: As tolerated. Physical Examination: General: Awake, alert, oriented x3, not in any acute distress, appears older than stated age. CV: S1, S2. Respiratory: Moving air well bilaterally. Diminished breath sounds at the left base. Gastrointestinal: Abdomen is soft, nontender, nondistended. Positive bowel sounds. Extremities: No clubbing, cyanosis, or edema. Neuro: Nonfocal. Total time spent discharging the patient was 45 minutes. /THUY Voice ID: [id number] Report ID: [id number]
== END 2019-04-10 13:00 | disposition home or self-care (01) | DRG 208 ==
LOC: ER 08:41 → ERHOLD 11:36 → 3RD-ICU 12:14
PROVIDERS: ADMIT Family Medicine; ATTEND Family Medicine
PROC: 5A1945Z Respiratory Ventilation, 24-96 Consecutive Hours (ICD-10-PCS; principal; 2019-04-08)
DX: J96.01 Acute respiratory failure with hypoxia (principal); G92 Toxic encephalopathy; E87.2 Acidosis; T43.625A Adverse effect of amphetamines, initial encounter; Y92.009 Unspecified place in unspecified non-institutional (private) residence as the place of occurrence of the external cause; F15.10 Other stimulant abuse, uncomplicated; F14.10 Cocaine abuse, uncomplicated; F17.210 Nicotine dependence, cigarettes, uncomplicated; J45.20 Mild intermittent asthma, uncomplicated; F41.1 Generalized anxiety disorder; F43.10 Post-traumatic stress disorder, unspecified; R41.0 Disorientation, unspecified; Z86.19 Personal history of other infectious and parasitic diseases; E03.9 Hypothyroidism, unspecified
CPT/HCPCS: 36415; 51702; 70450; 71045; 80048; 80076; 80307; 80320; 80329; 81003; 82805; 83605; 83690; 83735; 83880; 84132; 84145; 84484; 85025; 85610; 85730; 87040; 87086; 87088; 93005; 94002; 94003; 94640; 96361; 96365; 96375; 99291; J0692; J1630; J1650; J2250; J3010; J3370; J7030; J7605

== ENCOUNTER 2020-04-15 20:14 | Emergency (ER) | payer OTHER ==
--- OUTSIDE RECORDS SUMMARY | 2020-04-15 20:15 | XMS REPORT | Continuity of Care Document ---
:1965 Author Organization [facility] Address [address] [place] [address] Dr. Nichols [address] [place] [id number] Care Team Providers Name Role Phone Unavailable Unavailable Unavailable Problems This patient has no known problems. Allergies, Adverse Reactions, Alerts This patient has no known allergies or adverse reactions. Medications This patient has no known medications. Procedures This patient has no known procedures. Results This patient has no known results.
[2020-04-15] MEDS ORDERED: DIPHENHYDRAMINE 50 MG/ML VIAL ONE (21:28)
[2020-04-15] MEDS ORDERED: FAMOTIDINE 20 MG/2 ML VIAL IV ONE (21:29)
[2020-04-15 21:51] LABS: Urine Blood NEGATIVE (NEG); Urine Glucose NEGATIVE (NEG); Urine Protein NEGATIVE (NEG); Urine Specific Gravity >1.030 (1.005-1.030); Urine pH 5.5 (5.0-7.0)
[2020-04-15 22:00] LABS: Absolute Lymphocytes (CBC) 1.5 K/uL (0.7-4.9); Basophils % 0.3 % (0-1.3); Hematocrit 39.8 % (36.0-45.0); Lymphocytes % 17.5 % (15.3-44.8); MPV 8.4 fL (7.6-11.3)
[2020-04-15 22:04] LABS: Protime INR 0.86
[2020-04-15 22:11] LABS: Barbiturates NEGATIVE (NEGATIVE); Benzodiazepines POSITIVE (NEGATIVE); Cocaine NEGATIVE (NEGATIVE); METHAMPHETAM POSITIVE (NEGATIVE); Methadone NEGATIVE (NEGATIVE); Opiates NEGATIVE (NEGATIVE); Phencyclidine NEGATIVE (NEGATIVE); THC Cannibis NEGATIVE (NEGATIVE)
[2020-04-15 22:21] LABS: ALT/SGPT 25 U/L (12-78); AST/SGOT 20 U/L (15-37); Albumin 3.8 g/dL (3.4-5.0); Alkaline Phosphatase 72 U/L (45-117); BUN Blood Urea Nitrogen 18 mg/dL (7-18); Bicarbonate 30 mmol/L (21-32); Bilirubin Direct < 0.1 mg/dL (0-0.2); Bilirubin Total 0.2 mg/dL (0.2-1.0); CKMB Creatine Kinase MB 2.2 ng/mL (0.3-3.6); Creatine Phosphokinase 78 U/L (26-192); Glucose Level 82 mg/dL (74-106); Lipase 91 U/L (73-393); Magnesium 2.4 mg/dL (1.8-2.4); NT PRO-BNP 57 pg/mL (<125); Potassium 5.1 mmol/L (3.5-5.1); Protein, Total 7.4 g/dL (6.4-8.2); Sodium Level 141 mmol/L (136-145); Troponin (Emerg Dept Use Only) < 0.02 ng/mL (0.0-0.045)
[2020-04-15] MEDS ORDERED: NA CHLORIDE 0.9% 1,000 ML ONE (22:39)
[2020-04-15] MEDS ORDERED: METHYLPREDNISOLONE 125 MG INJ ONE (22:39)
--- NOTE | 2020-04-16 00:41 | ER ---
Nurse's Notes [facility] Name: Luanne Sagastume Age: 55 yrs Sex: Female : 1965 Arrival Date: 04/15/2020 Time: 20:16 Bed 19 Private MD: Diagnosis: COPD;Rash;Cellulitis Right Upper Extremity Presentation: 04/15 20:33 Chief complaint: Patient states: i have COPD and Im out of my inhaler for 2 weeks now. mg2 im in between doctors now. my breathing has oskar progressively worsening for the last 2 months. i have also skin redness/itchiness from the poison maggie and it's getting worse. Coronavirus screen:. Ebola Screen: No symptoms or risks identified at this time. Initial Sepsis Screen: Does the patient meet any 2 criteria? No. Patient's initial sepsis screen is negative. Does the patient have a suspected source of infection? No. Patient's initial sepsis screen is negative. Risk Assessment: Do you want to hurt yourself or someone else? Patient reports no desire to harm self or others. Onset of symptoms was April 2020. 20:33 Method Of Arrival: Ambulatory mg2 20:33 Acuity: YINA 3 mg2 20:36 Coronavirus screen: Client denies travel out of the [place] in the last 14 days. mg2 Triage Assessment: 20:39 General: Appears in no apparent distress. comfortable, Behavior is calm, cooperative. mg2 Pain: Denies pain. EENT: No deficits noted. Neuro: Level of Consciousness is awake, alert, obeys commands, Oriented to person, place, time, situation. Cardiovascular: Capillary refill < 3 seconds. Respiratory: Reports shortness of breath at rest cough that is Onset: The symptoms/episode began/occurred gradually, the patient has mild shortness of breath. GI: No signs and/or symptoms were reported involving the gastrointestinal system. : No signs and/or symptoms were reported regarding the genitourinary system. Derm: Rash noted that is draining clear fluid, red, raised, vesicular, on abdomen, pelvis and right arm. Musculoskeletal: Circulation, motion, and sensation intact. Capillary refill < 3 seconds. 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 - Social history:: Smoking status: Patient reports the use of cigarette tobacco products, smokes one-half pack cigarettes per day, Patient/guardian denies using alcohol, street drugs, IV drugs. Screenin:40 Abuse screen: Denies threats or abuse. Denies injuries from another. Nutritional mg2 screening: No deficits noted. Tuberculosis screening: No symptoms or risk factors identified. Fall Risk. Assessment: 20:40 General: see triage assessment. mg2 20:40 Respiratory: Airway is patent Respiratory effort is even, unlabored. mg2 20:40 Respiratory: Breath sounds with wheezes in right posterior upper lobe, right posterior mg2 middle lobe and right posterior lower lobe. 22:23 Reassessment: Patient appears in no apparent distress at this time. Patient and/or mg2 family updated on plan of care and expected duration. Pain level reassessed. Patient is alert, oriented x 3, equal unlabored respirations, skin warm/dry/pink. 22:24 Cardiovascular: Rhythm is regular. mg2 23:44 Reassessment: Patient appears in no apparent distress at this time. Patient and/or mg2 family updated on plan of care and expected duration. Pain level reassessed. Patient is alert, oriented x 3, equal unlabored respirations, skin warm/dry/pink. 04/16 01:00 Reassessment: Patient states feeling better. mg2 Vital Signs: 04/15 20:33 BP 138 / 102; Pulse 105; Resp 20; Temp 98.4; Pulse Ox 98% on R/A; Weight 61.23 kg; mg2 Height 5 ft. 6 in. (167.64 cm); Pain 0/10; 22:23 Resp 18; Pulse Ox 98% on R/A; mg2 22:51 BP 153 / 108; Pulse 100; Resp 18; Pulse Ox 100% on R/A; mg2 23:48 BP 162 / 103; Pulse 83; Resp 18; Pulse Ox 100% on R/A; mg2 04/16 01:00 BP 155 / 100; Pulse 89; Resp 18; Temp 98.4; Pulse Ox 98% on R/A; mg2 04/15 20:33 Body Mass Index 21.79 (61.23 kg, 167.64 cm) mg2 ED Course: 04/15 20:16 Patient arrived in ED. ag3 20:23 Tyron Seay, RN is Primary Nurse. mg2 20:32 Caleb Singleton MD is Attending Physician. mh7 20:36 Triage completed. mg2 20:39 Arm band placed on. mg2 20:40 Patient has correct armband on for positive identification. Door closed. Warm blanket mg2 given. 20:40 No provider procedures requiring assistance completed. mg2 21:20 Chest Single View XRAY In Process Unspecified. EDMS 21:30 Inserted saline lock: 22 gauge in left upper arm, using aseptic technique. Blood mg2 collected. 23:28 CT Chest For PE Angio In Process Unspecified. EDMS 04/16 01:00 IV discontinued, intact, bleeding controlled, No redness/swelling at site. Pressure mg2 dressing applied. Administered Medications: 04/15 21:52 Drug: Pepcid 20 mg Route: IVP; Site: left upper arm; mg2 23:45 Follow up: Response: No adverse reaction mg2 21:52 Drug: Benadryl 50 mg Route: IVP; Site: left upper arm; mg2 23:44 Follow up: Response: No adverse reaction mg2 22:32 Drug: NS 0.9% 1000 ml Route: IV; Rate: 1000 ml; Site: left upper arm; mg2 22:32 Drug: SOLU-Medrol 125 mg Route: IVP; Site: left upper arm; mg2 23:44 Follow up: Response: No adverse reaction mg2 Outcome: 04/16 00:40 Discharge ordered by . mh7 01:00 Patient left the ED. mg2 01:00 Discharged to home ambulatory. mg2 01:00 Condition: stable 01:00 Discharge instructions given to patient, Instructed on discharge instructions, follow up and referral plans. medication usage, Demonstrated understanding of instructions, follow-up care, medications, Prescriptions given X 6 Signatures: Dispatcher [employer] EDMS Tyron Seay RN RN mg2 Maria Esther Mcwilliams ag3 Caleb Singleton MD MD 7 Corrections: (The following items were deleted from the chart) 04/15 20:37 20:33 Chief complaint: Patient states: i have COPD and Im out of my inhaler for 2 weeks mg2 now. im in between doctors now. my breathing has oskar progressively worsening for the last 2 months. i have also skin redness/itchiness from the poison maggie and it's getting worse mg2
--- NOTE | 2020-04-16 00:41 | EDPHYS ---
Physician Documentation [facility] Name: Luanne Sagastume Age: 55 yrs Sex: Female : 1965 Arrival Date: 04/15/2020 Time: 20:16 Bed 19 Private MD: ED Physician Caleb Singleton HPI: 04/15 23:17 This 55 yrs old Female presents to ER via Ambulatory with complaints of mh7 Shortness Of Breath. 23:18 The patient has shortness of breath during heavy activity. mh7 23:19 Onset: The symptoms/episode began/occurred 2 week(s) ago. Duration: The symptoms are mh7 intermittent, with no pattern. The patient's shortness of breath is aggravated by exertion, light activity, is alleviated by inhaler. Associated signs and symptoms: Pertinent negatives: chest pain, non-productive cough, productive cough, diaphoresis, dizziness, fever, hemoptysis, loss of consciousness, nausea, numbness in extremities, visual changes, vomiting. Severity of symptoms: At their worst the symptoms were moderate 4 day(s) ago, in the emergency department the symptoms have improved markedly. The patient has experienced similar episodes in the past, multiple times. Patient with history of COPD states worsening SOB over the past 2 weeks. She states that she ran out of her inhaler but symptoms would improve when she used it. Denies any fever, chest pain, cough, abdominal pain. Also complains of itchy rash on arms, abdomen, legs which she thinks may be due to poison maggie.. 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 - Social history:: Smoking status: Patient reports the use of cigarette tobacco products, smokes one-half pack cigarettes per day, Patient/guardian denies using alcohol, street drugs, IV drugs. ROS: 23:19 Constitutional: Negative for fever, chills, and weight loss, Eyes: Negative for injury, mh7 pain, redness, and discharge, ENT: Negative for injury, pain, and discharge, Neck: Negative for injury, pain, and swelling, Cardiovascular: Negative for chest pain, palpitations, and edema, Abdomen/GI: Negative for abdominal pain, nausea, vomiting, diarrhea, and constipation, Back: Negative for injury and pain, : Negative for injury, bleeding, discharge, and swelling, MS/Extremity: Negative for injury and deformity, Neuro: Negative for headache, weakness, numbness, tingling, and seizure, Psych: Negative for depression, anxiety, suicide ideation, homicidal ideation, and hallucinations, Allergy/Immunology: Negative for hives, rash, and allergies, Endocrine: Negative for neck swelling, polydipsia, polyuria, polyphagia, and marked weight changes, Hematologic/Lymphatic: Negative for swollen nodes, abnormal bleeding, and unusual bruising. Exam: 23:19 Constitutional: This is a well developed, well nourished patient who is awake, alert, mh7 and in no acute distress. Head/Face: Normocephalic, atraumatic. Eyes: Pupils equal round and reactive to light, extra-ocular motions intact. Lids and lashes normal. Conjunctiva and sclera are non-icteric and not injected. Cornea within normal limits. Periorbital areas with no swelling, redness, or edema. ENT: Nares patent. No nasal discharge, no septal abnormalities noted. Tympanic membranes are normal and external auditory canals are clear. Oropharynx with no redness, swelling, or masses, exudates, or evidence of obstruction, uvula midline. Mucous membranes moist. Neck: Trachea midline, no thyromegaly or masses palpated, and no cervical lymphadenopathy. Supple, full range of motion without nuchal rigidity, or vertebral point tenderness. No Meningismus. Chest/axilla: Normal chest wall appearance and motion. Nontender with no deformity. No lesions are appreciated. Cardiovascular: Regular rate and rhythm with a normal S1 and S2. No gallops, murmurs, or rubs. Normal PMI, no JVD. No pulse deficits. Respiratory: Lungs have equal breath sounds bilaterally, clear to auscultation and percussion. No rales, rhonchi or wheezes noted. No increased work of breathing, no retractions or nasal flaring. Abdomen/GI: Soft, non-tender, with normal bowel sounds. No distension or tympany. No guarding or rebound. No evidence of tenderness throughout. Back: No spinal tenderness. No costovertebral tenderness. Full range of motion. MS/ Extremity: Pulses equal, no cyanosis. Neurovascular intact. Full, normal range of motion. Neuro: Awake and alert, GCS 15, oriented to person, place, time, and situation. Cranial nerves II-XII grossly intact. Motor strength 5/5 in all extremities. Sensory grossly intact. Cerebellar exam normal. Normal gait. Psych: Awake, alert, with orientation to person, place and time. Behavior, mood, and affect are within normal limits. 23:19 Skin: rash can be described as urticarial, on the abdomen, left arm, right leg and left leg. Vital Signs: 20:33 BP 138 / 102; Pulse 105; Resp 20; Temp 98.4; Pulse Ox 98% on R/A; Weight 61.23 kg; mg2 Height 5 ft. 6 in. (167.64 cm); Pain 0/10; 22:23 Resp 18; Pulse Ox 98% on R/A; mg2 22:51 BP 153 / 108; Pulse 100; Resp 18; Pulse Ox 100% on R/A; mg2 23:48 BP 162 / 103; Pulse 83; Resp 18; Pulse Ox 100% on R/A; mg2 04/16 01:00 BP 155 / 100; Pulse 89; Resp 18; Temp 98.4; Pulse Ox 98% on R/A; mg2 04/15 20:33 Body Mass Index 21.79 (61.23 kg, 167.64 cm) mg2 MDM: 04/15 20:59 Patient medically screened. [facility] 04/16 00:37 Differential diagnosis: Anemia Anxiety Reaction asthma, Bronchitis CHF exacerbation, mh7 Chronic Obstructive Pulmonary Disease pneumonia, pulmonary edema, Pulmonary Embolism. Data reviewed: vital signs, nurses notes, old medical records, lab test result(s), CBC, electrolytes, urinalysis, urine drug screen, EKG, radiologic studies, CT scan. Data interpreted: Pulse oximetry: on room air is 100 %. Interpretation: normal. Counseling: I had a detailed discussion with the patient and/or guardian regarding: the historical points, exam findings, and any diagnostic results supporting the discharge/admit diagnosis, the presence of at least one elevated blood pressure reading (>120/80) during this emergency department visit, lab results, radiology results. Response to treatment: the patient's symptoms have markedly improved after treatment. 04/15 21:04 Order name: Blood Culture Adult (2) [facility] 04/15 21:04 Order name: BMP; Complete Time: 22:25 [facility] 04/15 21:04 Order name: CBC with Diff; Complete Time: 22:11 [facility] 04/15 21:04 Order name: Ckmb; Complete Time: 22:25 [facility] 04/15 21:04 Order name: CPK; Complete Time: 22:25 [facility] 04/15 21:04 Order name: D-Dimer; Complete Time: 22:12 [facility] 04/15 21:04 Order name: Hepatic Function; Complete Time: 22:25 [facility] 04/15 21:04 Order name: Lipase; Complete Time: 22:25 [facility] 04/15 21:04 Order name: Magnesium; Complete Time: 22:25 [facility] 04/15 21:04 Order name: NT PRO-BNP; Complete Time: 22:25 [facility] 04/15 21:04 Order name: PT-INR; Complete Time: 22:12 [facility] 04/15 21:04 Order name: Ptt, Activated; Complete Time: 22:12 [facility] 04/15 21:04 Order name: Troponin (emerg Dept Use Only); Complete Time: 22:25 [facility] 04/15 21:04 Order name: UDS; Complete Time: 22:12 [facility] 04/15 21:04 Order name: EKG; Complete Time: 21:05 [facility] 04/15 21:04 Order name: Cardiac monitoring; Complete Time: 21:52 [facility] 04/15 21:04 Order name: EKG - Nurse/Tech; Complete Time: 21:52 [facility] 04/15 21:04 Order name: IV Saline Lock; Complete Time: 21:52 [facility] 04/15 21:04 Order name: Labs collected and sent; Complete Time: 21:52 [facility] 04/15 21:04 Order name: O2 Per Protocol; Complete Time: 21:52 [facility] 04/15 21:04 Order name: O2 Sat Monitoring; Complete Time: 21:52 [facility] 04/15 21:04 Order name: Chest Single View XRAY [facility] 04/15 21:48 Order name: Urine Dipstick--Ancillary (enter results); Complete Time: 22:08 tt3 04/15 21:48 Order name: Urine --Ancillary (enter results); Complete Time: 22:08 tt3 04/15 22:27 Order name: CT Chest For PE Angio mh7 Administered Medications: 04/15 21:52 Drug: Pepcid 20 mg Route: IVP; Site: left upper arm; mg2 23:45 Follow up: Response: No adverse reaction mg2 21:52 Drug: Benadryl 50 mg Route: IVP; Site: left upper arm; mg2 23:44 Follow up: Response: No adverse reaction mg2 22:32 Drug: NS 0.9% 1000 ml Route: IV; Rate: 1000 ml; Site: left upper arm; mg2 22:32 Drug: SOLU-Medrol 125 mg Route: IVP; Site: left upper arm; mg2 23:44 Follow up: Response: No adverse reaction mg2 Disposition: 04/16/20 00:40 Discharged to Home. Impression: COPD, Rash, Cellulitis Right Upper Extremity. - Condition is Stable. - Discharge Instructions: Chronic Obstructive Pulmonary Disease, Cellulitis, Adult, [id number], Rash, [id number]. - Prescriptions for Benadryl 25 mg Oral Capsule - take 2 capsule by ORAL route every 6 hours As needed; 30 tablet. Keflex 500 mg Oral Capsule - take 1 capsule by ORAL route every 6 hours for 10 days; 40 capsule. Pepcid 20 mg Oral Tablet - take 1 tablet by ORAL route every 12 hours for 5 days; 10 tablet. Bactrim DS 800- 160 mg Oral Tablet - take 1 tablet by ORAL route every 12 hours for 10 days; 20 tablet. Prednisone 20 mg Oral Tablet - take 2 tablet by ORAL route once daily for 5 days; 10 tablet. Albuterol Sulfate 90 mcg/actuation - inhale 1-2 puff by INHALATION route every 4-6 hours; 1 Inhaler. - Medication Reconciliation Form, Thank You Letter, Antibiotic Education, Prescription Opioid Use form. - Follow up: Private Physician; When: 2 - 3 days; Reason: Worsening of condition, Recheck today's complaints, Continuance of care, Re-evaluation by your physician. - Problem is an acute exacerbation. - Symptoms have improved. Signatures: Dispatcher [employer] EDTyron Loya RN RN mg2 Caleb Singleton MD MD 7 Corrections: (The following items were deleted from the chart) 04/16 01:00 00:40 04/16/2020 00:40 Discharged to Home. Impression: COPD; Rash; Cellulitis Right mg2 Upper Extremity. Condition is Stable. Forms are Medication Reconciliation Form, Thank You Letter, Antibiotic Education, Prescription Opioid Use. Follow up: Private Physician; When: 2 - 3 days; Reason: Worsening of condition, Recheck today's complaints, Continuance of care, Re-evaluation by your physician. Problem is an acute exacerbation. Symptoms have improved. mh7
[2020-04-16 03:07] VITALS: TEMP 98.4
[2020-04-16 03:09] VITALS: O2SAT 100
[2020-04-16 03:10] VITALS: BP 162/103
--- NOTE | 2020-04-16 08:14 | RAD REPORT ---
EXAM DESCRIPTION: RAD - Chest Single View - 04/15/2020 9:20 pm CLINICAL HISTORY: SOB Chest pain. COMPARISON: Chest Single View dated 04/10/2019; Chest Single View dated 04/08/2019; Chest Single View da phillip 11/10/2015; Chest Single View dated 11/08/2015 FINDINGS: Portable technique limits examination quality. The lungs are mildly emphysematous but grossly clear. The heart is normal in size. No displaced fract ures. IMPRESSION: Mild COPD.
--- NOTE | 2020-04-16 11:11 | RAD REPORT ---
EXAM DESCRIPTION: CT CHEST ANGIOGRAPHY WITH IV CONTRAST CLINICAL HISTORY: SOB TECHNIQUE: Contiguous axial images obtained through the chest during angiographic phase following th e uneventful administration of IV contrast. Sagittal and coronal reformatted images were provided. NV P reformatted images were provided. This exam was performed according to our departmental dose-optimization program, which includes autom ated exposure control, adjustment of the mA and/or kV according to patient size and/or use of iterati ve reconstruction technique. COMPARISON: No prior exams provided for comparison. FINDINGS: Diagnostic quality: There is good opacification of the pulmonary arterial tree. Motion art ifact degrades image quality and limits evaluation of segmental and subsegmental vessels. Lungs: Mild centrilobular emphysema. Subtle mosaic attenuation bilaterally. Right lower lobe calcifie d granuloma. Airways are patent. Pleura: No effusion. No pneumothorax. Heart and pericardium: The heart is normal in size. No pericardial effusion. Mediastinum and carmela: No pathologically enlarged lymph nodes. Lower neck and chest wall: Unremarkable Vessels: No pulmonary arterial filling defects. Minimal atherosclerotic disease. No thoracic aortic a neurysm. Upper abdomen: Unremarkable Bones: Multilevel spondylosis. No acute fracture. IMPRESSION: 1. Motion artifact degrades image quality and limits evaluation of segmental and subse gmental vessels. No central pulmonary embolic disease. 2. Subtle mosaic attenuation within the lungs bilaterally. Differential considerations include smal l airways disease, small vessel disease and interstitial infiltrates. 3. Other findings as above. Electronically signed by: Eliud Le MD 04/15/2020 11:51 PM CDT Due to temporary technical issues with the PACS/Fluency reporting system, reports are being signed by the in house radiologist without review as a courtesy to ensure prompt reporting. The interpreting r adiologist is fully responsible for the content of the report.
--- NOTE | 2020-04-16 11:21 | EKG ---
Test Date: 2020-04-15 Test Time: 21:12:11 Outpatient Coding Specialist: MG MEASUREMENT RESULTS: Intervals: Rate: 0 ME: QRSD: 0 QT: 0 QTc: 0 [place]: P: ME: QRS: 0 T: 0 INTERPRETIVE STATEMENTS: No QRS complexes found, no ECG analysis possible Compared to ECG 04/10/2019 08:28:57 Sinus rhythm no longer present Myocardial infarct finding no longer present Electronically Signed On 04-16-20 11:20:12 CDT by John Trujillo
--- NOTE | 2020-04-16 11:21 | EKG ---
Test Date: 2020-04-15 Test Time: 21:13:30 Milk Drier: MEASUREMENT RESULTS: Intervals: Rate: 96 MS: 194 QRSD: 82 QT: 332 QTc: 419 [place]: P: 56 MS: 194 QRS: 60 T: 85 INTERPRETIVE STATEMENTS: Normal sinus rhythm Anteroseptal infarct, age undetermined Abnormal ECG Compared to ECG 04/15/2020 21:12:11 Myocardial infarct finding now present Electronically Signed On 04-16-20 11:20:11 CDT by John Trujillo
== END 2020-04-16 01:00 | disposition home or self-care (01) ==
LOC: ER 20:14
DX: J44.9 Chronic obstructive pulmonary disease, unspecified (principal); R21 Rash and other nonspecific skin eruption; L03.113 Cellulitis of right upper limb; E78.5 Hyperlipidemia, unspecified; E03.9 Hypothyroidism, unspecified; E78.00 Pure hypercholesterolemia, unspecified; F43.10 Post-traumatic stress disorder, unspecified; F17.210 Nicotine dependence, cigarettes, uncomplicated
CPT/HCPCS: 93005 ×2; 87040; 85025; 80048; 36415; 83735; 82550; 81025; 85610; 85379; 80076; 80307 ×8; 85730; 81003; 84484; 82553; 83690; 83880; 71275; 71045; 96375; 96374; 99284; Q9967; J1200; J7030; J2930

== ENCOUNTER 2020-08-15 17:56 | Emergency (ER) | payer OTHER ==
--- OUTSIDE RECORDS SUMMARY | 2020-08-15 17:58 | XMS REPORT | Continuity of Care Document ---
:1965 Author Organization [facility] t Address [address] [place] [address] Dr. Nichols [address] [place] [id number] Care Team Providers Name Role Phone Unavailable Unavailable Unavailable Problems This patient has no known problems. Allergies, Adverse Reactions, Alerts This patient has no known allergies or adverse reactions. Medications This patient has no known medications. Procedures This patient has no known procedures. Results This patient has no known results.
--- NOTE | 2020-08-15 18:50 | RAD REPORT ---
EXAM DESCRIPTION: RAD - Chest Single View - 08/15/2020 6:42 pm CLINICAL HISTORY: DYSPNEA Chest pain. COMPARISON: Chest Single View dated 04/15/2020; Chest Single View dated 04/10/2019; Chest Single View d ated 04/08/2019; Chest Single View dated 11/10/2015 FINDINGS: Portable technique limits examination quality. The lungs are grossly clear. The heart is normal in size. No displaced fractures. IMPRESSION: No acute intrathoracic process suspected.
[2020-08-15 19:12] LABS: Arterial Blood Carboxyhemoglob 2.7 % (0-1.5); Blood Gas Oxyhemoglobin 92.3 % (94-97); Blood O2 Saturation 96.1 % (92-98.5)
[2020-08-15] MEDS ORDERED: LORAZEPAM 0.5 MG TABLET ONE (20:09)
[2020-08-15] MEDS ORDERED: LORAZEPAM 1 MG TABLET ONE (20:09)
[2020-08-15] MEDS ORDERED: AZITHROMYCIN 250 MG TAB ONE (20:20)
[2020-08-15 21:04] LABS: Absolute Lymphocytes (CBC) 2.5 K/uL (0.7-4.9); Basophils % 0.9 % (0-1.3); Hematocrit 38.8 % (36.0-45.0); Lymphocytes % 31.5 % (15.3-44.8); MPV 8.9 fL (7.6-11.3); RBC Red Blood Cell Count 4.32 M/uL (3.86-4.86)
[2020-08-15 21:05] LABS: SARS-COV-2 RT PCR NEGATIVE (NEGATIVE)
[2020-08-15 21:34] LABS: ALT/SGPT 27 U/L (12-78); AST/SGOT 17 U/L (15-37); Albumin 3.9 g/dL (3.4-5.0); Alkaline Phosphatase 77 U/L (45-117); BUN Blood Urea Nitrogen 17 mg/dL (7-18); Bicarbonate 31 mmol/L (21-32); Bilirubin Direct < 0.1 mg/dL (0-0.2); Bilirubin Total 0.2 mg/dL (0.2-1.0); C-Reactive Protein < 2.90 mg/L (<3.00); Ferritin 32.5 ng/mL (8-388); Glucose Level 114 mg/dL (74-106); Potassium 3.5 mmol/L (3.5-5.1); Protein, Total 7.5 g/dL (6.4-8.2); Sodium Level 142 mmol/L (136-145); Troponin (Emerg Dept Use Only) < 0.02 ng/mL (0.0-0.045)
[2020-08-15 21:35] LABS: Protime INR 0.87
[2020-08-15] MEDS ORDERED: dexAMETHasone 10 MG/ML VIAL ONE (22:00)
[2020-08-15] MEDS ORDERED: LEVALBUTEROL 1.25 MG/3 ML NEB ONE (22:16)
[2020-08-15 22:19] LABS: Urine Blood NEGATIVE (NEG); Urine Glucose NEGATIVE (NEG); Urine Protein NEGATIVE (NEG); Urine Specific Gravity 1.025 (1.005-1.030); Urine pH 5.5 (5.0-7.0)
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
[2020-08-15 23:34] VITALS: TEMP 98.3
[2020-08-15 23:38] VITALS: BP 125/70; O2SAT 94
--- NOTE | 2020-08-16 07:21 | EKG ---
Test Date: 2020-08-15 Test Time: 18:52:30 Experimental Mechanic Electrical: ZANA MEASUREMENT RESULTS: Intervals: Rate: 78 MS: 162 QRSD: 84 QT: 384 QTc: 437 [place]: P: 79 MS: 162 QRS: 52 T: 78 INTERPRETIVE STATEMENTS: Normal sinus rhythm Septal infarct, age undetermined Abnormal ECG Compared to ECG 04/15/2020 21:13:30 No significant changes Electronically Signed On 08-16-20 07:20:21 STEAM METER READER by John Trujillo
== END 2020-08-15 23:29 | disposition home or self-care (01) ==
LOC: ER 17:56
DX: J44.1 Chronic obstructive pulmonary disease with (acute) exacerbation (principal); Z20.822 Contact with and (suspected) exposure to COVID-19; F17.210 Nicotine dependence, cigarettes, uncomplicated
CPT/HCPCS: 93005; 87040 ×2; 85025; 80048; 36415; 85610; 80076; 83605; 85730; 81003; 84484; 82728; 84145; 0240U; 86140; 71045; 82805; 96374; 99285; J1100

== ENCOUNTER 2021-03-28 18:23 | Emergency (ER) | payer OTHER ==
--- NOTE | 2021-03-28 20:42 | EDPHYS ---
Physician Documentation [facility] Name: Luanne Sagastume Age: 56 yrs Sex: Female : 1965 Arrival Date: 03/28/2021 Time: 18:26 Bed Waiting Private MD: ED Physician Hugo Crane HPI: 03/28 22:39 This 56 yrs old Female presents to ER via Ambulatory with complaints of tw4 Shortness Of Breath, No taste/smell. 22:39 The patient has shortness of breath at rest. Onset: The symptoms/episode began/occurred tw4 today. Duration: The symptoms are continuous, and are unchanged since they started. The patient's shortness of breath has no apparent modifying factors. Associated signs and symptoms: Pertinent positives: loss of taste and smell. Severity of symptoms: At their worst the symptoms were moderate in the emergency department the symptoms are unchanged. The patient has not experienced similar symptoms in the past. Historical: - Allergies: 19:17 No Known Allergies; kg - Home Meds: 19:17 albuterol sulfate Nebulizer [Active]; ProAir HFA inhalation 2 puffs as needed [Active]; kg - PMHx: 19:17 Asthma; COPD; FREE BLEEDER; High Cholesterol; Hyperlipidemia; Hypothyroidism; PTSD; kg - PSHx: 19:17 section; Right ankle; kg - Immunization history:: Adult Immunizations not up to date, Client reports having NOT received the Covid vaccine. - Social history:: Smoking status: Patient reports the use of cigarette tobacco products, smokes one pack cigarettes per day. Patient uses street drugs, Methamphetamine (Meth) Meth 3 days ago . ROS: 22:39 Constitutional: Negative for fever, chills, and weight loss, Eyes: Negative for injury, tw4 pain, redness, and discharge, Cardiovascular: Negative for chest pain, palpitations, and edema, Abdomen/GI: Negative for abdominal pain, nausea, vomiting, diarrhea, and constipation, Back: Negative for injury and pain, MS/Extremity: Negative for injury and deformity, Skin: Negative for injury, rash, and discoloration, Neuro: Negative for headache, weakness, numbness, tingling, and seizure. 22:39 Respiratory: Positive for shortness of breath, Negative for cough, dyspnea on exertion, hemoptysis, orthopnea, pleurisy. Exam: 22:39 Constitutional: This is a well developed, well nourished patient who is awake, alert, tw4 and in no acute distress. Head/Face: Normocephalic, atraumatic. Chest/axilla: Normal chest wall appearance and motion. Nontender with no deformity. No lesions are appreciated. Cardiovascular: Regular rate and rhythm with a normal S1 and S2. No gallops, murmurs, or rubs. Normal PMI, no JVD. No pulse deficits. Respiratory: Lungs have equal breath sounds bilaterally, clear to auscultation and percussion. No rales, rhonchi or wheezes noted. No increased work of breathing, no retractions or nasal flaring. Abdomen/GI: Soft, non-tender, with normal bowel sounds. No distension or tympany. No guarding or rebound. No evidence of tenderness throughout. Back: No spinal tenderness. No costovertebral tenderness. Full range of motion. MS/ Extremity: Pulses equal, no cyanosis. Neurovascular intact. Full, normal range of motion. Neuro: Awake and alert, GCS 15, oriented to person, place, time, and situation. Cranial nerves II-XII grossly intact. Motor strength 5/5 in all extremities. Sensory grossly intact. Cerebellar exam normal. Normal gait. Vital Signs: 19:12 BP 159 / 91; Pulse 100; Resp 20; Temp 98.7(TE); Pulse Ox 98% on R/A; Weight 61.23 kg; kg Height 5 ft. 6 in. (167.64 cm); Pain 8/10; 19:12 Body Mass Index 21.79 (61.23 kg, 167.64 cm) kg MDM: 20:42 Patient medically screened. tw4 22:39 Differential diagnosis: reactive airway disease. Data reviewed: vital signs, nurses tw4 notes. Data interpreted: floral artist: Interpretation: normal rate, Pulse oximetry: Interpretation: normal. Counseling: I had a detailed discussion with the patient and/or guardian regarding: the historical points, exam findings, and any diagnostic results supporting the discharge/admit diagnosis. 03/28 20:39 Order name: SARS-COV-2 RT PCR; Complete Time: 21:08 EDMS 03/28 19:26 Order name: CXR XRAY tw4 Administered Medications: 20:51 Drug: Motrin (ibuprofen) 800 mg Route: PO; kg 21:11 Follow up: Response: No adverse reaction kg Disposition Summary: 03/28/21 20:42 Discharge Ordered Location: Home tw4 Problem: new tw4 Symptoms: are unchanged tw4 Condition: Stable tw4 Diagnosis - Coronavirus infection, unspecified tw4 - Pneumonia due to SARS-associated coronavirus tw4 Followup: tw4 - With: Private Physician - When: Upon discharge from the Emergency Department - Reason: Recheck today's complaints, Continuance of care, Re-evaluation by your physician Discharge Instructions: - Discharge Summary Sheet tw4 - Upper Respiratory Infection, Adult tw4 - Viral Respiratory Infection, [id number] tw4 - COVID-19 tw4 Forms: - Medication Reconciliation Form tw4 - Thank You Letter tw4 - Antibiotic Education tw4 - Prescription Opioid Use tw4 Prescriptions: - ProAir HFA 90 mcg/actuation Inhalation HFA aerosol inhaler - inhale 2 puff by INHALATION route 4 times per day; 1 Pump; Refills: 0, Product 4 Selection Permitted - Fioricet 50-300-40 mg Oral capsule - take 1 capsule by ORAL route every 4 hours as needed; 15 capsule; Refills: 0, Product Selection Permitted - Tessalon Perles 100 mg Oral Capsule - take 1 capsule by ORAL route every 8 hours As needed; 15 capsule; Refills: 0, Product Selection Permitted - Albuterol Sulfate 2.5 mg /3 mL (0.083 %) Inhalation Solution for Nebulization - inhale 1 unit by NEBULIZATION route every 8 hours As needed; 1 box; Refills: 0, Product Selection Permitted Signatures: Dispatcher [employer] EDHugo Vasquez MD MD tw4 Essie Houston, RN RN kg Corrections: (The following items were deleted from the chart) 19:36 19:11 CORONAVIRUS+MR.LAB.BRZ ordered. EDMS EDMS 19:54 19:26 Chest Pa And Lat (2 Views)+RAD.RAD.BRZ ordered. EDMS EDMS
--- NOTE | 2021-03-28 20:42 | ER ---
Nurse's Notes [facility] Name: Luanne Sagastume Age: 56 yrs Sex: Female : 1965 Arrival Date: 03/28/2021 Time: 18:26 Bed Waiting Private MD: Diagnosis: Coronavirus infection, unspecified;Pneumonia due to SARS-associated coronavirus Presentation: 03/28 19:12 Chief complaint: Patient states: Pt stated, " My taste changed to metallic taste and kg smell went away on 03/12/2021 I have COPD and I've increased my neb and its not helping. I just keep feeling worse and my stomach doesn't feel right, I'm having diarrhea, vomiting, nausea. I also have a terrible migraine that I've had for 4 months that wont go away, I came to the ER at that time.". Coronavirus screen: Client denies travel out of the [place] in the last 14 days. At this time, unable to obtain information related to travel outside the [place] Client presents with at least one sign or symptom that may indicate coronavirus-19. Standard/surgical mask placed on the client. Provider contacted for isolation considerations. The client denies any previous COVID testing. Ebola Screen: Patient negative for fever greater than or equal to 101.5 degrees Fahrenheit, and additional compatible Ebola Virus Disease symptoms Patient denies exposure to infectious person. Patient denies travel to an Ebola-affected area in the 21 days before illness onset. Initial Sepsis Screen: Does the patient meet any 2 criteria? No. Patient's initial sepsis screen is negative. Does the patient have a suspected source of infection? No. Patient's initial sepsis screen is negative. Risk Assessment: Do you want to hurt yourself or someone else? Patient reports no desire to harm self or others. Onset of symptoms was March 12, 2021. 19:12 Method Of Arrival: Ambulatory kg 19:12 Acuity: YINA 3 kg Triage Assessment: 19:17 General: Appears. kg 19:17 General: Behavior is calm, cooperative, appropriate for age, quiet. Pain: Complains of kg pain in Head Pain currently is 8 out of 10 on a pain scale. at worst was 10 out of 10 on a pain scale. level that patient reports is acceptable is 5 out of 10 on a pain scale. Respiratory: Reports shortness of breath cough that is non-productive, Onset: The symptoms/episode began/occurred 03/12, the patient has mild shortness of breath. Historical: - Allergies: 19:17 No Known Allergies; kg - Home Meds: 19:17 albuterol sulfate Nebulizer [Active]; ProAir HFA inhalation 2 puffs as needed [Active]; kg - PMHx: 19:17 Asthma; COPD; FREE BLEEDER; High Cholesterol; Hyperlipidemia; Hypothyroidism; PTSD; kg - PSHx: 19:17 section; Right ankle; kg - Immunization history:: Adult Immunizations not up to date, Client reports having NOT received the Covid vaccine. - Social history:: Smoking status: Patient reports the use of cigarette tobacco products, smokes one pack cigarettes per day. Patient uses street drugs, Methamphetamine (Meth) Meth 3 days ago . Screenin:23 Abuse screen: Denies threats or abuse. Denies injuries from another. Nutritional kg screening: No deficits noted. Tuberculosis screening: No symptoms or risk factors identified. Fall Risk None identified. Assessment: 21:11 Cardiovascular: Rhythm is regular. Respiratory: Airway Respiratory effort is even, kg unlabored, relaxed, Breath sounds are diminished bilaterally. Vital Signs: 19:12 BP 159 / 91; Pulse 100; Resp 20; Temp 98.7(TE); Pulse Ox 98% on R/A; Weight 61.23 kg; kg Height 5 ft. 6 in. (167.64 cm); Pain 8/10; 19:12 Body Mass Index 21.79 (61.23 kg, 167.64 cm) kg ED Course: 18:26 Patient arrived in ED. rg4 19:17 Triage completed. kg 19:17 Arm band placed on right wrist. kg 19:23 Patient has correct armband on for positive identification. kg 19:26 Hugo Crane MD is Attending Physician. tw4 20:14 CXR XRAY In Process Unspecified. EDMS 21:11 Patient did not have IV access during this emergency room visit. kg 21:12 No provider procedures requiring assistance completed. kg Administered Medications: 20:51 Drug: Motrin (ibuprofen) 800 mg Route: PO; kg 21:11 Follow up: Response: No adverse reaction kg Outcome: 20:42 Discharge ordered by . tw4 21:12 Discharged to home ambulatory. kg 21:12 Discharged to home ambulatory. 21:12 Condition: improved 21:12 Discharge instructions given to patient, Instructed on discharge instructions, follow up and referral plans. Demonstrated understanding of instructions, follow-up care, medications, Prescriptions given X 4. 21:14 Patient left the ED. kg Signatures: Dispatcher [employer] EDEnedina Guerra rg4 Hugo Crane MD MD tw4 Essie Houston, RN RN kg Corrections: (The following items were deleted from the chart) 19:36 19:29 CORONAVIRUS+MR.LAB.BRZ drawn and sent. kg EDMS
[2021-03-28] MEDS ORDERED: IBUPROFEN 400 MG TAB ONE (21:13)
[2021-03-28 21:19] VITALS: BP 159/91; TEMP 98.7; O2SAT 98
--- OUTSIDE RECORDS SUMMARY | 2021-03-28 22:50 | XMS REPORT | Continuity of Care Document ---
:1965 Author Organization [facility] t Address [address] [place] [address] Care Team Providers Name Role Phone Doctor Unassigned, Name Attending Clinician Unavailable Problems This patient has no known problems. Allergies, Adverse Reactions, Alerts This patient has no known allergies or adverse reactions. Medications This patient has no known medications. Procedures This patient has no known procedures. Encounters Start End Encounter Admission Attending Care Care Encounter Source Date/Time Date/Time Type Type Clinicians Facility Department ID 2020-08-17 2020-08-17 Orders Doctor SANDIP [id number] 00:00:00 00:00:00 Only UnassignedYONATAN [id number] [place] [facility] [id number] Results This patient has no known results.
--- NOTE | 2021-03-29 10:42 | RAD REPORT ---
EXAM DESCRIPTION: RAD - Chest Single View - 03/28/2021 10:40 pm CLINICAL HISTORY: SOB Prolonged technical malfunction precluded the final written report at the time of the study. Image wa s reviewed for critical finding. Comparison was not available at time of initial review. COMPARISON: Portable August 2020 TECHNIQUE: AP portable chest image was obtained 03/28/2021 10:40 pm . FINDINGS: No focal lung parenchymal process has developed. Fullness of each hilum matches the compar annika. No acute failure or volume overload finding. Heart and vasculature are normal. No measurable pl eural effusion and no pneumothorax. No acute bony abnormality seen. No acute aortic findings suspecte d. IMPRESSION: No acute cardiopulmonary process. No significant change from comparison study.
== END 2021-03-28 21:14 | disposition home or self-care (01) ==
LOC: ER 18:23
DX: U07.1 COVID-19 (principal); J12.82 Pneumonia due to coronavirus disease 2019; J44.9 Chronic obstructive pulmonary disease, unspecified; F17.210 Nicotine dependence, cigarettes, uncomplicated
CPT/HCPCS: 71045; 99283; U0003

== ENCOUNTER 2021-04-17 13:49 | Emergency (ER) | payer OTHER ==
--- OUTSIDE RECORDS SUMMARY | 2021-04-17 13:52 | XMS REPORT | Continuity of Care Document ---
:1965 Author Organization [facility] t Address [address] [place] [address] Care Team Providers Name Role Phone Doctor [...] ID 2020-08-17 2020-08-17 Orders Doctor SANDIP [id number] 00:00:00 00:00:00 Only UnassignedYONATAN [id number] [place] [facility] [id number] Results This patient has no known results.
[2021-04-17] MEDS ORDERED: LEVALBUTEROL 0.63 MG/3 ML NEB ONE (15:51)
[2021-04-17] MEDS ORDERED: METHYLPREDNISOLONE 125 MG INJ ONE (15:52)
[2021-04-17] MEDS ORDERED: NA CHLORIDE 0.9% 500 ML ONE (15:52)
--- NOTE | 2021-04-17 16:14 | RAD REPORT ---
EXAM DESCRIPTION: RAD - Chest Single View - 04/17/2021 3:19 pm CLINICAL HISTORY: Cough;COPD Chest pain. COMPARISON: Chest Single View dated 03/28/2021; Chest Single View dated 08/15/2020; Chest Single View dated 04/15/2020; Chest Single View dated 04/10/2019 FINDINGS: Portable technique limits examination quality. The lungs are grossly clear. The heart is normal in size. No displaced fractures. IMPRESSION: No acute intrathoracic process suspected.
[2021-04-17] MEDS ORDERED: LEVALBUTEROL 1.25 MG/3 ML NEB ONE (16:21)
--- NOTE | 2021-04-17 16:51 | EDPHYS ---
Physician Documentation [facility] Name: Luanne Sagastume Age: 56 yrs Sex: Female : 1965 Arrival Date: 04/17/2021 Time: 13:56 Bed 13 Private MD: ED Physician Luis Manuel Gomez HPI: 04/17 15:33 This 56 yrs old Female presents to ER via Ambulatory with complaints of rn COVID+, Shortness Of Breath. 15:33 The patient has shortness of breath at rest, with light activity. Onset: The rn symptoms/episode began/occurred 3 week(s) ago. Duration: The symptoms are intermittent. The patient's shortness of breath is aggravated by exertion, light activity, walking, is alleviated by nebulizer treatment. Associated signs and symptoms: Pertinent positives: non-productive cough, Pertinent negatives: fever, hemoptysis. Severity of symptoms: At their worst the symptoms were mild in the emergency department the symptoms are unchanged. The patient has not experienced similar symptoms in the past. The patient has been recently seen by a physician:. Patient reports diagnosed with Covid 2 to 3 weeks ago. States does not feel like ever completely got over it. Has COPD. Reports still feels short of breath at times. No fever. States is sleeping a lot and has generalized weakness.. Historical: - Allergies: 14:07 No Known Allergies; hb - PMHx: 14:07 COPD; Hyperlipidemia; High Cholesterol; Asthma; Hypothyroidism; FREE BLEEDER; PTSD; hb - PSHx: 14:07 section; Right Ankle; hb - Immunization history:: Adult Immunizations up to date. - Social history:: Smoking status: Patient denies any tobacco usage or history of. - Family history:: not pertinent. - Hospitalizations: : No recent hospitalization is reported. ROS: 15:33 Constitutional: Negative for fever, chills, and weight loss, Eyes: Negative for injury, rn pain, redness, and discharge, ENT: Negative for injury, pain, and discharge, Neck: Negative for injury, pain, and swelling, Cardiovascular: Negative for chest pain, palpitations, and edema, Respiratory: Negative for pleuritic chest pain Abdomen/GI: Negative for abdominal pain, nausea, vomiting, diarrhea, and constipation, Back: Negative for injury and pain, : Negative for injury, bleeding, discharge, and swelling, MS/Extremity: Negative for injury and deformity, Skin: Negative for injury, rash, and discoloration, Neuro: Negative for headache, numbness, tingling, and seizure. Exam: 15:33 Constitutional: This is a well developed, well nourished patient who is awake, alert, rn and in no acute distress. Head/Face: Normocephalic, atraumatic. Eyes: Periorbital areas with no swelling, redness, or edema. ENT: No stridor Cardiovascular: Regular rate and rhythm. No pulse deficits. Respiratory: Mild tachypnea. No retractions Abdomen/GI: Soft, non-tender Skin: Warm, dry MS/ Extremity: Pulses equal, no cyanosis. Neuro: Awake and alert, GCS 15 16:06 ECG was reviewed by the Attending Physician. rn Vital Signs: 14:06 BP 134 / 84; Pulse 84; Resp 24; Temp 97.8; Pulse Ox 95% on R/A; Pain 5/10; hb 16:18 BP 134 / 88; Pulse 84; Resp 18; Temp 97.3; Pulse Ox 100% on R/A; aj2 MDM: 14:17 Patient medically screened. rn 16:48 Differential diagnosis: Bronchitis Chronic Obstructive Pulmonary Disease pneumonia, rn Pneumothorax pulmonary edema. Data reviewed: vital signs, nurses notes, lab test result(s), EKG, radiologic studies, plain films, and as a result, I will discharge patient. 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 Interpretation: normal. Test interpretation: by ED physician or midlevel provider: ECG, plain radiologic studies, Chest x-ray does not show any acute abnormality or pneumonia.. Counseling: I had a detailed discussion with the patient and/or guardian regarding: the historical points, exam findings, and any diagnostic results supporting the discharge/admit diagnosis, radiology results, the need for outpatient follow up, to return to the emergency department if symptoms worsen or persist or if there are any questions or concerns that arise at home. Response to treatment: the patient's symptoms have mildly improved after treatment, and as a result, I will discharge patient. Special discussion: I discussed with the patient/guardian in detail that at this point there is no indication for admission to the hospital. It is understood, however, that if the symptoms persist or worsen the patient needs to return immediately for re-evaluation. Based on the history and exam findings, there is no indication for further emergent testing or inpatient evaluation. 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 ED course: No acute findings on chest x-ray. No oxygen requirement. Will treat as COPD exacerbation and dehydration. Improved with fluids.. 04/17 14:26 Order name: XRAY Chest (1 view); Complete Time: 16:27 rn 04/17 14:26 Order name: IV Start; Complete Time: 15:52 rn 04/17 14: Order name: EKG; Complete Time: 14: rn 04/17 14: Order name: EKG - Nurse/Tech; Complete Time: 15:51 rn EC:06 Rate is 65 beats/min. Rhythm is regular. QRS [place] is Normal. [place] interval is normal. QRS rn interval is normal. QT interval is normal. No Q waves. T waves are Normal. No ST changes noted. Clinical impression: NSR w/ Non-specific ST/T Changes. Interpreted by me. Reviewed by me. Administered Medications: 15:51 Drug: SOLU-Medrol (methylPrednisoLONE) 125 mg Route: IVP; Site: left hand; aj2 15:51 Drug: NS 0.9% 500 ml Route: IV; Rate: bolus; Site: left hand; aj2 15:58 Drug: Xopenex (levalbuterol) 1.25 mg Route: Inhalation; aj2 Disposition Summary: 04/17/21 16:50 Discharge Ordered Location: Home rn Problem: an ongoing problem rn Symptoms: have improved rn Condition: Stable rn Diagnosis - COPD/ Chronic obstructive pulmonary disease, unspecified rn - Cough rn - SARS-associated coronavirus as the cause of diseases classified elsewhere rn Followup: rn - With: Private Physician - When: As needed - Reason: Recheck today's complaints, Re-evaluation by your physician Discharge Instructions: - Discharge Summary Sheet rn - Chronic Obstructive Pulmonary Disease rn - Cough, Adult rn - COVID-19 rn Forms: - Medication Reconciliation Form rn - Thank You Letter rn - Antibiotic regulatory affairs internship - Prescription Opioid Use rn Prescriptions: - albuterol sulfate 90 mcg/actuation Inhalation HFA aerosol inhaler - inhale 2 puff by INHALATION route every 4 hours; 1 Pump; Refills: 0, Product rn Selection Permitted - Prednisone 20 mg Oral Tablet - take 3 tablets by ORAL route once daily for 5 days; 15 tablet; Refills: 0, rn Product Selection Permitted Signatures: Dispatcher [employer] EDMS Luis Manuel Gomez MD MD rn Baxter, Heather, RN RN hb Jenkins, Angelea aj2 Corrections: (The following items were deleted from the chart) 17: 14:27 CBC+H.LAB.BRZ ordered. EDMS EDMS 17:01 14:27 BASIC METABOLIC PANEL+C.LAB.BRZ ordered. EDMS EDMS
--- NOTE | 2021-04-17 16:51 | ER ---
Nurse's Notes [facility] Name: Luanne Sagastume Age: 56 yrs Sex: Female : 1965 Arrival Date: 04/17/2021 Time: 13:56 Bed 13 Private MD: Diagnosis: COPD/ Chronic obstructive pulmonary disease, unspecified;Cough;SARS-associated coronavirus as the cause of diseases classified elsewhere Presentation: 04/17 14:06 Chief complaint: Tested COVID + 03/31, c/o worsening SOB and cough. Coronavirus screen: hb Client presents with at least one sign or symptom that may indicate coronavirus-19. Standard/surgical mask placed on the client. Provider contacted for isolation considerations. Ebola Screen: No symptoms or risks identified at this time. Risk Assessment: Do you want to hurt yourself or someone else? Patient reports no desire to harm self or others. Onset of symptoms was March 23, 2021. 14:06 Method Of Arrival: Ambulatory 14:06 Acuity: YINA 3 hb Historical: - Allergies: 14:07 No Known Allergies; hb - PMHx: 14:07 COPD; Hyperlipidemia; High Cholesterol; Asthma; Hypothyroidism; FREE BLEEDER; PTSD; hb - PSHx: 14:07 section; Right Ankle; hb - Immunization history:: Adult Immunizations up to date. - Social history:: Smoking status: Patient denies any tobacco usage or history of. - Family history:: not pertinent. - Hospitalizations: : No recent hospitalization is reported. Screenin:18 Abuse screen: Denies threats or abuse. Denies injuries from another. Nutritional aj2 screening: No deficits noted. Tuberculosis screening: No symptoms or risk factors identified. Fall Risk None identified. Assessment: 16:18 General: Appears in no apparent distress. Pain: Complains of pain in forehead Pain does aj2 not radiate. Pain currently is 6 out of 10 on a pain scale. Quality of pain is described as aching, Pain began years ago. Is intermittent, Alleviated by medications, Aggravated by increased activity. Vital Signs: 14:06 BP 134 / 84; Pulse 84; Resp 24; Temp 97.8; Pulse Ox 95% on R/A; Pain 5/10; hb 16:18 BP 134 / 88; Pulse 84; Resp 18; Temp 97.3; Pulse Ox 100% on R/A; aj2 ED Course: 13:56 Patient arrived in ED. ds1 14:07 Triage completed. hb 14:07 Arm band placed on. hb 14:17 Luis Manuel Gomez MD is Attending Physician. rn 14:17 Kelly Freitas is Primary Nurse. aj2 15:19 XRAY Chest (1 view) In Process Unspecified. EDMS 16:18 No apparent distress. aj2 16:18 Patient has correct armband on for positive identification. aj2 16:18 No provider procedures requiring assistance completed. Inserted saline lock: 20 gauge aj2 in left. 17:08 IV discontinued, intact, bleeding controlled, No redness/swelling at site. Pressure ss dressing applied. Administered Medications: 15:51 Drug: SOLU-Medrol (methylPrednisoLONE) 125 mg Route: IVP; Site: left hand; aj2 15:51 Drug: NS 0.9% 500 ml Route: IV; Rate: bolus; Site: left hand; aj2 15:58 Drug: Xopenex (levalbuterol) 1.25 mg Route: Inhalation; aj2 Outcome: 16:50 Discharge ordered by . rn 17:08 Discharged to home ambulatory. ss 17:08 Condition: good 17:08 Discharge instructions given to patient, family, Instructed on discharge instructions, follow up and referral plans. medication usage, Demonstrated understanding of instructions, follow-up care, medications, Prescriptions given X 2. 17:09 Patient left the ED. ss Signatures: Dispatcher [employer] EDUT Linda Gauthier ds1 Luis Manuel Gomez MD MD rn Smirch, Shelby, RN RN Richa Hutchison RN RN Kelly Freitas aj2
[2021-04-17 17:31] VITALS: BP 134/88; TEMP 97.3; O2SAT 100
== END 2021-04-17 17:09 | disposition home or self-care (01) ==
LOC: ER 13:49
DX: U07.1 COVID-19 (principal); J44.9 Chronic obstructive pulmonary disease, unspecified
CPT/HCPCS: 93005; 71045; 96374; 99284; J7040; J2930

== ENCOUNTER 2021-08-24 07:04 | Observation (INO) | payer OTHER ==
--- OUTSIDE RECORDS SUMMARY | 2021-08-24 07:08 | XMS REPORT | Continuity of Care Document ---
:[address] [facility] t Address [address] [place] [address] Care Team Providers Name Role Phone PCP, DOES NOT HAVE A Primary Care Physician Unavailable Inés STATON Attending Clinician Unavailable Inés Staton DO Attending Clinician FISH Attending Clinician Unavailable Doctor Unassigned, Name Attending Clinician Unavailable Inés STATON Admitting Clinician Unavailable Payers Payer Name Policy Type Policy Number Effective Date Expiration Date S marisa [facility] [id number] 2014 00:00:00 PLUS Problems Condition Condition Condition Status Onset Resolution Last Treating Co mments Source Name Details Category Date Date Treatment Clinician Date No known No known Disease Unive rs active active ity of problems problems [facility] Allergies, Adverse Reactions, Alerts Allergy Allergy Status Severity Reaction(s) Onset Inactive Treating Comm ents Source Name Type Date Date Clinician NO KNOWN Drug Active Univers ALLERGIE Class ity of S [facility] Social History Social Habit Start Date Stop Date Quantity Comments Source Exposure to Not sure [facility] SARS-CoV-2 (event) [facility] Alcohol intake 2021-06-14 2021-06-14 Ex-drinker University of 00:00:00 00:00:00 (finding) [facility] Cigarettes smoked 2020-08-17 2020-08-17 Univers ity of current (pack per 00:00:00 00:00:00 ) - Reported Branch Cigarette 2020-08-17 2020-08-17 University of pack-years 00:00:00 00:00:00 [facility] Tobacco use and 2020-08-17 2020-08-17 Never used Universit y of exposure 00:00:00 00:00:00 [facility] Sex [birth year] Universit y of 00:00:00 00:00:00 [facility] Smoking Status Start Date Stop Date Source Current every day smoker 2020-08-17 00:00:00 Uni versity [facility] Unknown if ever smoked [facility] y [facility] Medications Ordered Filled Start Stop Current Ordering Indication Dosage Frequency Signature Comments Components Source Medication Medication Date Date Medication? Clinician (SIG) Name Name clobetasoL Yes [id number] Apply to Univers 0.05 % 1-12 area(s) 2 ity of ointment 00:00: (two) [place] 00 times Medical daily. Two Branch times daily for 4 weeks, then nightly for 4 weeks, then every other night albuterol Yes Univers 90 1-11 ity of mcg/actuati 00:00: [place] on inhaler [facility] azithromyci Yes Univer s n 250 mg 1-11 ity of tablet 00:00: [place] 00 [facility] predniSONE Yes Univers 20 mg 1-11 ity of tablet 00:00: [place] 00 [facility] triamcinolo 2018-0 Yes [id number] Apply to Univers ne 0.025 % 5-15 area(s) 2 ity of ointment 00:00: (two) [place] 00 times Medical daily. Branch Immunizations Ordered Filled Immunization Date Status Comments Sourc e Immunization Name Name Influenza Virus 2020-08-17 Completed Universit y of Vaccine Quad .5 mL 00:00:00 [facility] 6+ [place] Vital Signs Vital Name Observation Time Observation Value Comments Source Systolic blood 2021-06-14 18:24:00 140 mm[Hg] Univer sity of pressure [facility] Diastolic blood 2021-06-14 18:24:00 84 mm[Hg] Unive rsity of pressure [facility] Heart rate 2021-06-14 18:24:00 81 /min [facility] Body temperature 2021-06-14 18:24:00 37.22 Nano [facility] Respiratory rate 2021-06-14 18:24:00 18 /min [facility] Body height 2021-06-14 18:24:[address] [facility] Body weight 2021-06-14 18:24:[address] [facility] BMI 2021-06-14 18:24:00 24.21 kg/m2 [facility] Oxygen saturation in 2021-06-14 18:24:00 98 /min [facility] blood by [facility] Pulse oximetry Branch Procedures Procedure Date / Time Performed Performing Clinician Sourc e CT 2021-06-14 18:40:48 Cleopatra Staton [facility] MAXILLOFACIAL/MANDIBLE Medical B ranch WO CONTRAST CT TRAUMA HEAD WO 2021-06-14 18:40:48 Cleopatra Staton [facility] CONTRAST [facility] CT TRAUMA CERVICAL 2021-06-14 18:40:48 Cleopatra Staton [facility] SPINE WO CONTRAST [facility] ASSIGNMENT OF BENEFITS 2020-08-17 19:04:00 Doctor Unassigned, No [facility] Encounters Start End Encounter Admission Attending Care Care Encounter Source Date/Time Date/Time Type Type Clinicians Facility Department ID 2021-06-14 2021-06-14 Emergency X SHEMAR [facility] ERT [id number] Univers 12:25:00 13:39:00 CLEOPATRA [facility] 2021-06-14 2021-06-14 Emergency She[facility] [id number] Univers 12:25:00 13:39:00 Cleopatra ORTEZ [id number] [facility] [id number] [facility] [id number] [facility] 084 Branch 2021-02-28 2021-02-28 Outpatient R SALLY CLEMENS [facility] [id number] Univers 15:00:00 15:00:00 [id number] [facility] 2021-02-28 2021-02-28 Outpatient R SALLY CLEMENS [facility] [id number] Univers 15:00:00 [facility]:00:[facility] 2020-09-28 2020-09-28 Outpatient R SALLY CLEMENS [facility] [id number] Univers 15:00:00 15:00:00 [id number] [facility] 2020-09-28 2020-09-28 Outpatient SALLY LOO [facility] [id number] Univers 15:00:00 15:00:00 ity [facility] 2020-08-17 2020-08-17 Outpatient SALLY LOO [facility] [id number] Univers 13:00:00 13:00:00 ity [facility] 2020-08-17 2020-08-17 Orders Doctor SANDIP [id number] 00:00:00 00:00:00 Only Unassigned, YONATAN [id number] [facility] [id number] 2020-08-17 2020-08-17 Orders Doctor SANDIP [id number] [facility] 00:00:00 00:00:00 Only Unassigned, YONATAN [id number] ity of [facility] [id number] [place] [phone] [place] [address] Branch Results This patient has no known results.
[2021-08-24 08:05] LABS: Protime INR 0.93
--- NOTE | 2021-08-24 08:23 | RAD REPORT ---
EXAM DESCRIPTION: RAD - Chest Single View - 08/24/2021 8:04 am CLINICAL HISTORY: Cough;SOB COMPARISON: Chest Single View dated 04/17/2021; Chest Single View dated 03/28/2021; Chest Single View dated 08/15/2020; Chest Single View dated 04/15/2020 FINDINGS: Lines: None. Lungs: No evidence of edema or pneumonia. Pleural: No significant pleural effusions or pneumothorax. Cardiac: The heart size is within normal limits. Bones: No acute fractures. Other: IMPRESSION: No acute cardiopulmonary disease.
[2021-08-24] MEDS ORDERED: METHYLPREDNISOLONE 125 MG INJ ONE (08:33)
[2021-08-24 09:23] LABS: SARS-COV-2 RT PCR NEGATIVE (NEGATIVE)
[2021-08-24 09:34] LABS: Absolute Lymphocytes (CBC) 2.7 K/uL (0.7-4.9); Lymphocytes % 26.8 % (15.3-44.8); MPV 8.3 fL (7.6-11.3); RBC Red Blood Cell Count 4.54 M/uL (3.86-4.86)
[2021-08-24 09:55] LABS: Albumin 4.4 g/dL (3.4-5.0); Bilirubin Direct 0.1 mg/dL (0-0.2); Bilirubin Total 0.5 mg/dL (0.2-1.0); Magnesium 2.6 mg/dL (1.8-2.4); Potassium 3.8 mmol/L (3.5-5.1); Protein, Total 8.3 g/dL (6.4-8.2); Troponin High Sensitivity 6.1 pg/mL (<58.9)
[2021-08-24] MEDS ORDERED: ALBUTEROL 2.5 MG/3 ML NEB SOL ONE ×2 (10:39→10:43)
[2021-08-24] MEDS ORDERED: IPRATROPIUM BROM 0.5MG/2.5ML ONE (10:39)
[2021-08-24] MEDS ORDERED: BENZONATATE 100 MG CAP PO ONE (10:47)
--- NOTE | 2021-08-24 13:02 | ER ---
Nurse's Notes [facility] Name: Luanne Sagastume Age: 56 yrs Sex: Female : 1965 Arrival Date: 08/24/2021 Time: 07:09 Bed 14 Private MD: Diagnosis: COPD/ Chronic obstructive pulmonary disease with (acute) exacerbation Presentation: 08/24 07:12 Chief complaint: Patient states: "I have been working in a trailer working to clean up jd3 mold. I think I have a problem now with my lungs thanks to the mold. I have COPD and COVID positive last month and I am just having a hard time breathing and headache.". Coronavirus screen: difficulty breathing, headache, Client presents with at least one sign or symptom that may indicate coronavirus-19. Standard/surgical mask placed on the client. Provider contacted for isolation considerations. Ebola Screen: Patient negative for fever greater than or equal to 101.5 degrees Fahrenheit, and additional compatible Ebola Virus Disease symptoms. Initial Sepsis Screen: Does the patient meet any 2 criteria? No. Patient's initial sepsis screen is negative. Does the patient have a suspected source of infection? No. Patient's initial sepsis screen is negative. Risk Assessment: Do you want to hurt yourself or someone else? Patient reports no desire to harm self or others. Onset of symptoms was August 24, 2021. 07:12 Method Of Arrival: Ambulatory j 07:12 Acuity: YINA 3 jd3 Triage Assessment: 07:30 Respiratory: Onset: The symptoms/episode began/occurred patient states "I have been cb5 exposed to mold for two months now.", the patient has mild shortness of breath. Historical: - Allergies: 07:15 No Known Allergies; jd3 - PMHx: 07:15 FREE BLEEDER; Hypothyroidism; Hyperlipidemia; High Cholesterol; PTSD; COPD; Asthma; jd3 - PSHx: 07:15 section; Right Ankle; jd3 - Immunization history:: Adult Immunizations up to date, Client reports having NOT received the Covid vaccine. - Social history:: Smoking status: Patient reports the use of cigarette tobacco products, smokes one-half pack cigarettes per day. Screenin:43 Abuse screen: Denies threats or abuse. Denies injuries from another. Nutritional cb5 screening: No deficits noted. Tuberculosis screening: No symptoms or risk factors identified. Fall Risk None identified. Assessment: 07:30 General: Appears uncomfortable, well developed, well nourished, Behavior is appropriate cb5 for age, anxious. Pain: Denies pain. Neuro: No deficits noted. Cardiovascular: No deficits noted. Rhythm is sinus rhythm. Respiratory: Reports cough that is dry, pt states "I have been exposed to mold, and have been coughing for a week, have had a runny nose, no fever." Airway is patent Respiratory effort is even, Breath sounds are clear. GI: No deficits noted. Patient currently denies. : No deficits noted. Denies. EENT: No deficits noted. Derm: patient has poor skin turgor. Musculoskeletal: No deficits noted. 08:44 Reassessment: Primary nurse attempted P.I.V. placement x2 without success, second nurse cb5 attempted P.IV placement x3 with patients consent no success, requested third nurse. Third nurse on second attempt placed 22g in pts left thumb, pt ethan well. Blood was obtained and sent to lab. 08:50 Reassessment: Lab notified of recollecting patients blood. There were three nurses who cb5 attempted P.I.V placement, labs were sent to lab at that time. 11:39 Reassessment: pt tolerated breathing treatment, ambulated pt in hallway with mask on, cb5 patients O2 sats are 100%. 13:00 Reassessment: Patient denies pain at this time. Patient states feeling better. cb5 15:06 Reassessment: No changes from previously documented assessment. cb5 15:49 Reassessment: Attempted to give report for room 230, assigned nurse will call back. cb5 Informed charge nurse. 16:13 Reassessment: Attempted to call report, no answer. cb5 16:48 Reassessment: Attempted to call report to nurse. Spoke with Jana Anne she will have the cb5 nurse call me back for report. 17:20 Reassessment: Spoke with Kartik, she informed me nurse is downstairs headed to the ER. cb5 Requested nurse do bedside report with me for ER room #14 and bring patient upstairs. 18:34 Reassessment: Gave report Jana Treviño Vital Signs: 07:16 BP 124 / 85; Pulse 91; Resp 18 S; Temp 97.6(O); Pulse Ox 94% on R/A; Weight 70.31 kg jd3 (R); Height 5 ft. 6 in. (167.64 cm) (R); Pain 8/10; 08:27 BP 119 / 74; Pulse 76; Resp 16; Temp 98.6; Pulse Ox 100% ; Pain 0/10; cb5 09:30 BP 130 / 82; Pulse 83; Resp 16; Pulse Ox 98% ; cb5 10:15 BP 141 / 89; Pulse 83; Resp 16; Pulse Ox 98% ; Pain 0/10; cb5 10:15 BP 135 / 124; Pulse 81; Resp 18; Pain 2/10; cb5 11:16 BP 122 / 91; Pulse 88; Resp 16; Pulse Ox 100% ; cb5 07:16 Body Mass Index 25.02 (70.31 kg, 167.64 cm) jd3 ED Course: 07:09 Patient arrived in ED. wm 07:11 Ronal Crum PA is PHCP. cp 07:14 Triage completed. jd3 07:17 Arm band placed on. jd3 07:18 Ronal Crum PA is PHCP. cp 07:19 Luis Manuel Gomez MD is Attending Physician. cp 07:19 Attending Physician role handed off by Luis Manuel Gomez MD cp 07:19 Vick Mcgowan MD is Attending Physician. cp 07:30 Patient has correct armband on for positive identification. Call light in reach. Side cb5 rails up X 1. 07:38 Germania Israel, RN is Primary Nurse. cb5 08:04 XRAY Chest (1 view) In Process Unspecified. EDMS 08:23 Basic Metabolic Panel Sent. cb5 08:23 CBC with Diff Sent. cb5 08:23 LFT's Sent. cb5 08:23 Magnesium Sent. cb5 08:23 NT PRO-BNP Sent. cb5 08:23 Troponin HS Sent. cb5 08:51 No provider procedures requiring assistance completed. cb5 13:00 Gary Julio DO is Hospitalizing Provider. cp 18:43 Report given to Jana Loredo Administered Medications: 08:33 Drug: SOLU-Medrol (methylPrednisoLONE) 125 mg Route: IVP; Site: left hand; cb5 10:40 Not Given (Physician Discretion): Albuterol 2.5 mg Inhalation once cp 10:40 Not Given (Physician Discretion): AtroVENT (ipratropium) Aerosol 0.5 mg Inhalation once cp 10:45 Drug: Tessalon Perle (benzonatate) 200 mg Route: PO; cb5 10:45 Drug: Albuterol - atroVENT (ipratropium) (3:1) (2.5 mg - 0.5 mg) 3 ml Route: Nebulizer; cb5 Outcome: 13:01 Decision to Hospitalize by Provider. cp 21:46 Patient left the ED. sv1 Signatures: Dispatcher [employer] EDMS Ronal Crum PA PA cp Davies, Jonathon, RN RN jd3 Luz Maria Lopez Steven, RN RN sv1 Germania Israel RN RN cb5
--- NOTE | 2021-08-24 13:02 | EDPHYS ---
Physician Documentation [facility] Name: Luanne Sagastume Age: 56 yrs Sex: Female : 1965 Arrival Date: 08/24/2021 Time: 07:09 Bed 14 Private MD: ED Physician Vick Mcgowan HPI: 08/24 07:38 This 56 yrs old Female presents to ER via Ambulatory with complaints of Breathing cp Difficulty. 07:38 The patient has shortness of breath with light activity. Onset: The symptoms/episode cp began/occurred 2 week(s) ago. Associated signs and symptoms: Pertinent positives: non-productive cough, sore throat, Pertinent negatives: chest pain, fever. Severity of symptoms: in the emergency department the symptoms are unchanged despite home interventions. 07:38 Duration: The symptoms are continuous, and are steadily getting worse. 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 - Social history:: Smoking status: Patient reports the use of cigarette tobacco products, smokes one-half pack cigarettes per day. ROS: 07:40 Constitutional: Positive for body aches, chills, Negative for fever. cp 07:40 Eyes: Negative for injury, pain, redness, and discharge. cp 07:40 ENT: Positive for sore throat, Negative for drainage from ear(s), ear pain, difficulty swallowing, difficulty handling secretions. 07:40 Cardiovascular: Negative for chest pain, edema, palpitations. 07:40 Respiratory: Positive for cough, shortness of breath, on exertion. Negative for wheezing. 07:40 Abdomen/GI: Positive for abdominal cramps, Negative for nausea, vomiting, and diarrhea. 07:40 Neuro: Positive for headache, Negative for altered mental status, syncope, weakness. Exam: 07:45 Constitutional: The patient appears in no acute distress, alert, awake, cp non-diaphoretic, non-toxic, well developed, well nourished. 07:45 Head/Face: Normocephalic, atraumatic. cp 07:45 Eyes: Periorbital structures: appear normal, Conjunctiva: normal, no exudate, no injection, Sclera: no appreciated abnormality, Lids and lashes: appear normal, bilaterally. 07:45 ENT: External ear(s): are unremarkable, Nose: is normal, Mouth: Lips: moist, Oral mucosa: moist, Posterior pharynx: Airway: no evidence of obstruction, patent. 07:45 Neck: ROM/movement: is normal, is supple, without pain, no range of motions limitations. 07:45 Chest/axilla: Inspection: normal. 07:45 Cardiovascular: Rate: normal, Rhythm: regular, Edema: is not appreciated, JVD: is not appreciated. 07:45 Respiratory: the patient does not display signs of respiratory distress, Respirations: labored breathing, is not present, shallow respirations, that is mild, Breath sounds: decreased breath sounds, that are mild, throughout, stridor, is not appreciated, wheezing: is not appreciated. 07:45 Abdomen/GI: Inspection: abdomen appears normal, Palpation: abdomen is soft and non-tender, in all quadrants. 07:45 Back: pain, is absent, ROM is normal. 07:45 Skin: cellulitis, is not appreciated, no rash present. 07:45 Neuro: Orientation: to person, place \T\ time. Mentation: is normal, Motor: moves all fours, strength is normal, Sensation: is normal. 08:40 ECG was reviewed by the Attending Physician. cp Vital Signs: 07:16 BP 124 / 85; Pulse 91; Resp 18 S; Temp 97.6(O); Pulse Ox 94% on R/A; Weight 70.31 kg jd3 (R); Height 5 ft. 6 in. (167.64 cm) (R); Pain 8/10; 08:27 BP 119 / 74; Pulse 76; Resp 16; Temp 98.6; Pulse Ox 100% ; Pain 0/10; cb5 09:30 BP 130 / 82; Pulse 83; Resp 16; Pulse Ox 98% ; cb5 10:15 BP 141 / 89; Pulse 83; Resp 16; Pulse Ox 98% ; Pain 0/10; cb5 10:15 BP 135 / 124; Pulse 81; Resp 18; Pain 2/10; cb5 11:16 BP 122 / 91; Pulse 88; Resp 16; Pulse Ox 100% ; cb5 07:16 Body Mass Index 25.02 (70.31 kg, 167.64 cm) jd3 MDM: 07:21 Patient medically screened. cp 13:00 Data reviewed: vital signs, nurses notes, lab test result(s), EKG, radiologic studies, cp plain films. 13:00 Differential diagnosis: CHF exacerbation, Chronic Obstructive Pulmonary Disease cp Myocardial Infarction pneumonia, Pneumothorax pulmonary edema, Pulmonary Embolism reactive airway disease, Sepsis Unstable Angina. Test interpretation: by ED physician or midlevel provider: ECG, plain radiologic studies. Counseling: I had a detailed discussion with the patient and/or guardian regarding: the historical points, exam findings, and any diagnostic results supporting the discharge/admit diagnosis, lab results, radiology results. Physician consultation: Gary Julio DO was called at 12:45, was contacted at 12:45, regarding admission, to the telemetry unit. patient's condition, discussed patient need for supplemental oxygen after oxygen sats being observed at 88% on RA. 08/24 07:35 Order name: Basic Metabolic Panel; Complete Time: 10:30 08/24 10:30 Interpretation: Normal except: BUN 28; GFR 88. 08/24 07:35 Order name: CBC with Diff; Complete Time: 09:46 08/24 09:46 Interpretation: Reviewed. 08/24 07:35 Order name: LFT's; Complete Time: 10:30 08/24 10:30 Interpretation: Normal except: TP 8.3; GLOB 3.9. 08/24 07:35 Order name: Magnesium; Complete Time: 10:30 08/24 10:31 Interpretation: Abnormal: MG 2.6. 08/24 07:35 Order name: NT PRO-BNP; Complete Time: 10:30 cp 08/24 07:35 Order name: PT-INR; Complete Time: 08:38 cp 08/24 07:35 Order name: Troponin HS; Complete Time: 10:30 08/24 10:31 Interpretation: Reviewed. 08/24 07:35 Order name: XRAY Chest (1 view); Complete Time: 08:38 cp 08/24 08:38 Interpretation: Report reviewed. 08/24 07:35 Order name: Strep; Complete Time: 09:46 cp 08/24 09:47 Interpretation: Reviewed. 08/24 07:36 Order name: Group A Streptococcus Rapid Sc; Complete Time: 08:38 EDMS 08/24 08:08 Order name: Throat Culture EDMS 08/24 07:35 Order name: EKG; Complete Time: 07:36 cp 08/24 07:35 Order name: Cardiac monitoring; Complete Time: 08:22 cp 08/24 07:35 Order name: EKG - Nurse/Tech; Complete Time: 08:40 cp 08/24 07:35 Order name: IV Saline Lock; Complete Time: 08:22 cp 08/24 07:35 Order name: Labs collected and sent; Complete Time: 08:22 cp 08/24 07:35 Order name: O2 Per Protocol; Complete Time: 08:22 cp 08/24 07:35 Order name: O2 Sat Monitoring; Complete Time: 08:22 cp EC:40 Rate is 83 beats/min. Rhythm is regular. KS interval is normal. QRS interval is normal. cp QT interval is normal. T waves are Inverted in leads aVR, V2. Interpreted by me. Reviewed by me. Administered Medications: 08:33 Drug: SOLU-Medrol (methylPrednisoLONE) 125 mg Route: IVP; Site: left hand; cb5 10:40 Not Given (Physician Discretion): Albuterol 2.5 mg Inhalation once cp 10:40 Not Given (Physician Discretion): AtroVENT (ipratropium) Aerosol 0.5 mg Inhalation once cp 10:45 Drug: Tessalon Perle (benzonatate) 200 mg Route: PO; cb5 10:45 Drug: Albuterol - atroVENT (ipratropium) (3:1) (2.5 mg - 0.5 mg) 3 ml Route: Nebulizer; cb5 Disposition: 08/25 07:12 Co-signature as Attending Physician, Vick Mcgowan MD I agree with the assessment and kdr plan of care. Disposition Summary: 08/24/21 13:01 Hospitalization Ordered Hospitalization Status: Inpatient Admission cp Provider: Gary Julio cp Location: Telemetry/MedSurg (Inpatient) cp Condition: Stable cp Problem: an acute exacerbation cp Symptoms: have improved cp Bed/Room Type: Standard Room Assignment: 230(08/24/21 15:16) bd Diagnosis - COPD/ Chronic obstructive pulmonary disease with (acute) exacerbation cp Forms: - Medication Reconciliation Form cp - SBAR form cp Signatures: Dispatcher [employer] Sayda Perez Kevin, MD MD kdr Page, Corey, PA PA cp Davies, Jonathon, RN RN jd3 Germania Israel RN RN cb5 Corrections: (The following items were deleted from the chart) 08/24 15:16 13:01 cp bd
--- NOTE | 2021-08-24 13:17 | P.HP ---
Certification for Inpatient Patient admitted to: Observation With expected LOS: <2 Midnights Patient will require the following post-hospital care: None Practitioner: I am a practitioner with admitting privileges, knowledge of patient current condition, hospital course, and medical plan of care. Services: Services provided to patient in accordance with Admission requirements found in Title 42 Section 412.3 of the Code of Federal Regulations Patient History Date of Service: 08/24/21 Primary Care Provider: Dr. Espinosa Reason for admission: Shortness of breath History of Present Illness: 56-year-old female with history of COPD, tobacco abuse. Patient reported increasing shortness of breath over the past week. She has been having more difficulty with breathing and wheezing as of late. Patient reports some mold issues in her trailer. She is getting these issues addressed. Patient denies any significant chest pain, nausea or vomiting. She came to the ER for further evaluation. In the ER patient was evaluated. Chest x-ray unremarkable. Patient was hypoxic and required oxygen in the ER. COVID test negative. Patient admitted for treatment. Allergies No Known Allergies Allergy (Unverified 04/09/19 13:45) Home Medications: Albuterol Inhaler [Ventolin Inhaler*] 2 puff IH Q6H PRN #1 hfa.aer.ad 04/10/19 Citalopram [Celexa] 10 mg PO DAILY #30 tablet 04/10/19 - Past Medical/Surgical History Diabetic: No -: COPD -: Hypothyroidism -: Hyperlipidemia -: PTSD -: -: Right ankle reconstruction Psychosocial/ Personal History: Patient lives in a trailer - Family History Family History: Reviewed- Non-Contributory - Social History Smoking Status: Current every day smoker Counseled patient to stop smoking for: less than 10 minutes Smoking therapy provided: Yes Patient receptive to therapy: Yes Alcohol use: No CD- Drugs: No Caffeine use: Yes Place of Residence: Home Review of Systems General: As per HPI Eyes: Unremarkable ENT: Unremarkable Respiratory: Shortness of Breath, SOB with Excertion, As per HPI Cardiovascular: Unremarkable Gastrointestinal: Unremarkable Genitourinary: Unremarkable Musculoskeletal: Unremarkable Integumentary: Unremarkable Neurological: Unremarkable Lymphatics: Unremarkable Physical Examination - Studies Laboratory Data (last 24 hrs) 08/24/21 09:08: WBC 10.00, Hgb 13.8, Hct 42.0, Plt Count 239 08/24/21 09:08: Sodium 139, Potassium 3.8, BUN 28 H, Creatinine 0.69, Glucose 87, Magnesium 2.6 H, Total Bilirubin 0.5, AST 18, ALT 24, Alkaline Phosphatase 79 08/24/21 07:55: PT 10.7, INR 0.93 Microbiology Data (last 24 hrs): 08/24/21 07:40 Throat Group A Streptococcus Rapid Screen - Final Assessment and Plan - Plan COVID: Negative Chest x-ray: COMPARISON: Chest Single View dated 04/17/2021; Chest Single View dated 03/28/2021; Chest Single View dated 08/15/2020; Chest Single View dated 04/15/2020 FINDINGS: Lines: None. Lungs: No evidence of edema or pneumonia. Pleural: No significant pleural effusions or pneumothorax. Cardiac: The heart size is within normal limits. Bones: No acute fractures. IMPRESSION: No acute cardiopulmonary disease. Physical Exam: GENERAL: The patient is a well-developed, well-nourished, in no apparent distress. Alert and oriented x3. VITAL SIGNS: Reviewed HEENT: Head is normocephalic and atraumatic. Extraocular muscles are intact. Pupils are equal, round, and reactive to light and accommodation. Nares appeared normal. Mouth is well hydrated and without lesions. Mucous membranes are moist. NECK: Supple. No carotid bruits. No lymphadenopathy or thyromegaly. LUNGS: Mild wheezing. Currently on 2 L per nasal cannula HEART: Regular rate and rhythm, no appreciable gallops, rubs, murmurs or extra heart sounds ABDOMEN: Soft, nontender, and nondistended. Positive bowel sounds. No hepatosplenomegaly was noted. EXTREMITIES: Without any cyanosis, clubbing, rash, lesions or peripheral edema. NEUROLOGIC: The patient is oriented to person, place and time. Strength and sensation are grossly intact. Face is symmetric. SKIN: Normal color, turgor and temperature. No ulcerations or rashes noted. Impression: Dyspnea with hypoxia secondary to COPD exacerbation Tobacco abuse Plan: Patient will be admitted for further evaluation and treatment. We will start IV steroids and COPD treatment. We will also provide nicotine patch. Anticipate improvement over the next 24 hours. Wean off oxygen. Likely discharge tomorrow morning. Code Status: Full Code DVT prophylaxis: Lovenox Advanced Care Planning-30 minutes: Home at discharge Discharge Plan: Home Plan to discharge in: 24 Hours - Advance Directives Does patient have a Living Will: No Does patient have a Durable POA for Healthcare: No - Code Status/Comfort Care Code Status Assessed: Yes (Patient is full code ) Time Spent Managing Pts Care (In Minutes): 55
[2021-08-24] MEDS ORDERED: ONDANSETRON 4 MG/2 ML VIAL IV PRN (21:15)
[2021-08-24] MEDS ORDERED: ALBUTEROL 2.5 MG/3 ML NEB SOL NEB PRN (21:15)
[2021-08-24] MEDS ORDERED: IPRATROPIUM BROM 0.5MG/2.5ML NEB PRN (21:15)
[2021-08-24] MEDS: METHYLPREDNISOLONE 40 MG INJ IV SCH (21:33)
[2021-08-24 21:37] VITALS: BMI 25.1
[2021-08-24] MEDS: ARFORMOTEROL TARTRATE 15 MCG/2 ML VIAL.NEB NEB SCH (22:40)
[2021-08-24] MEDS: ACETAMINOPHEN 500 MG TAB PO PRN (22:41)
[2021-08-25] MEDS: METHYLPREDNISOLONE 40 MG INJ IV SCH ×2 (02:38→09:49)
[2021-08-25] MEDS: ACETAMINOPHEN 500 MG TAB PO PRN (03:18)
--- NOTE | 2021-08-25 05:59 | P.DS ---
Admission Date: 08/24/21 Discharge Date: 08/25/21 Primary Care Provider: Dr. Espinosa Disposition: ROUTINE DISCHARGE Discharge Condition: GOOD Reason for Admission: Shortness of breath Consultations: none Procedures: COVID: Negative Chest x-ray: COMPARISON: Chest Single View dated 04/17/2021; Chest Single View dated 03/28/2021; Chest Single View dated 08/15/2020; Chest Single View dated 04/15/2020 FINDINGS: Lines: None. Lungs: No evidence of edema or pneumonia. Pleural: No significant pleural effusions or pneumothorax. Cardiac: The heart size is within normal limits. Bones: No acute fractures. IMPRESSION: No acute cardiopulmonary disease. Medical problem list: Dyspnea with hypoxia secondary to COPD exacerbation Tobacco abuse Brief History of Present Illness: 56-year-old female with history of COPD, tobacco abuse. Patient reported increasing shortness of breath over the past week. She has been having more difficulty with breathing and wheezing as of late. Patient reports some mold issues in her trailer. She is getting these issues addressed. Patient denies any significant chest pain, nausea or vomiting. She came to the ER for further evaluation. In the ER patient was evaluated. Chest x-ray unremarkable. Patient was hypoxic and required oxygen in the ER. COVID test negative. Patient admitted for treatment. Hospital Course: Patient presented with shortness of breath secondary to COPD exacerbation with hypoxia. Patient required hospitalization. Patient received IV steroids and COPD treatment with improvement. Patient has done well. Patient currently on room air. At discharge patient will continue with prednisone 20 mg 1 pill twice daily for 7 days then 1 pill once daily for 7 days. Patient will continue with her COPD medication of Symbicort 2 puffs twice daily and albuterol 2 puffs 3 times a day as needed for shortness of breath. Recommend follow-up with her PCP in 1 week to follow-up his hospitalization. Recommend to establish care with pulmonology as an outpatient to further address and monitor her COPD. Patient with tobacco abuse. Tobacco cessation addressed in detail. Will provide nicotine patch. Vital Signs/Physical Exam: Temp Pulse Resp BP Pulse Ox 97.1 F 94 H 18 115/56 L 94 08/25/21 00:00 08/25/21 00:00 08/25/21 00:00 08/25/21 00:00 08/25/21 00:00 General: Alert, In no apparent distress, Oriented x3, Cooperative HEENT: Atraumatic Neck: Supple Respiratory: Clear to auscultation bilaterally, Normal air movement Cardiovascular: Normal pulses, Regular rate/rhythm Gastrointestinal: Normal bowel sounds, No ascites, No tenderness, No masses, No rebound, No guarding Musculoskeletal: No erythema, No tenderness, No warmth Integumentary: No tenderness/swelling, No erythema, No warmth, No cyanosis Neurological: Normal speech, Normal strength at 5/5 x4 extr, Normal tone Laboratory Data at Discharge: WBC 10.00 K/uL (4.3-10.9) 08/24/21 09:08 Hgb 13.8 g/dL (12.0-15.0) 08/24/21 09:08 Hct 42.0 % (36.0-45.0) 08/24/21 09:08 Plt Count 239 K/uL (152-406) 08/24/21 09:08 PT 10.7 SECONDS (9.5-12.5) 08/24/21 07:55 INR 0.93 08/24/21 07:55 Sodium 139 mmol/L (136-145) 08/24/21 09:08 Potassium 3.8 mmol/L (3.5-5.1) 08/24/21 09:08 BUN 28 mg/dL (7-18) H 08/24/21 09:08 Creatinine 0.69 mg/dL (0.55-1.3) 08/24/21 09:08 Glucose 87 mg/dL (74-106) 08/24/21 09:08 Magnesium 2.6 mg/dL (1.8-2.4) H 08/24/21 09:08 Total Bilirubin 0.5 mg/dL (0.2-1.0) 08/24/21 09:08 AST 18 U/L (15-37) 08/24/21 09:08 ALT 24 U/L (12-78) 08/24/21 09:08 Alkaline Phosphatase 79 U/L (45-117) 08/24/21 09:08 Home Medications: Albuterol Inhaler [Ventolin Inhaler*] 2 puff IH TID PRN #1 hfa.aer.ad 08/25/21 Budesonide/Formoterol Fumarate [Symbicort 160-4.5 Mcg Inhaler] 2 puff IH BID #1 hfa.aer.ad 08/25/21 Nicotine [Nicoderm*] 21 mg TD DAILY #30 patch.td24 08/25/21 predniSONE [Prednisone*] 20 mg PO SEECOM #21 tab 08/25/21 New Medications: Nicotine [Nicoderm*] 21 mg TD DAILY #30 patch.td24 predniSONE [Prednisone*] 20 mg PO SEECOM #21 tab Budesonide/Formoterol Fumarate [Symbicort 160-4.5 Mcg Inhaler] 2 puff IH BID #1 hfa.aer.ad Albuterol Inhaler [Ventolin Inhaler*] 2 puff IH TID PRN #1 hfa.aer.ad PRN Reason: Shortness Of Breath Physician Discharge Instructions: Patient presented with shortness of breath secondary to COPD exacerbation with hypoxia. Patient required hospitalization. Patient received IV steroids and COPD treatment with improvement. Patient has done well. Patient currently on room air. At discharge patient will continue with prednisone 20 mg 1 pill twice daily for 7 days then 1 pill once daily for 7 days. Patient will continue with her COPD medication of Symbicort 2 puffs twice daily and albuterol 2 puffs 3 times a day as needed for shortness of breath. Recommend follow-up with her PCP in 1 week to follow-up his hospitalization. Recommend to establish care with pulmonology as an outpatient to further address and monitor her COPD. Patient with tobacco abuse. Tobacco cessation addressed in detail. Will provide nicotine patch. Diet: AHA Activity: Ad wolf Followup: Reji Connor DO, DO [Primary Care Provider] - Time spent managing pt's care (in minutes): 55
[2021-08-25 08:53] VITALS: BP 104/63; TEMP 97.9
[2021-08-25] MEDS: ARFORMOTEROL TARTRATE 15 MCG/2 ML VIAL.NEB NEB SCH (08:57)
[2021-08-25] MEDS ORDERED: PNEUMOCOCCAL VACCINE 0.5 ML IMVAC ONE (09:00)
[2021-08-25] MEDS ORDERED: ENOXAPARIN 40 MG/0.4 ML SQ SCH (09:00)
[2021-08-25] MEDS ORDERED: NICOTINE 21 MG/PAT TD SCH (09:00)
[2021-08-25] MEDS ORDERED: INFLUENZA VACCINE (for 6+ mo) 0.5 ML DOSE IMVAC ONE (09:00)
[2021-08-25 09:49] VITALS: O2SAT 97
== END 2021-08-25 10:50 | disposition home or self-care (01) ==
LOC: ER 07:04 → ERHOLD 13:10 → 2ND 21:12
PROVIDERS: ADMIT Family Medicine; ATTEND Family Medicine
DX: J44.1 Chronic obstructive pulmonary disease with (acute) exacerbation (principal); R09.02 Hypoxemia; E03.9 Hypothyroidism, unspecified; E78.5 Hyperlipidemia, unspecified; E78.00 Pure hypercholesterolemia, unspecified; F43.10 Post-traumatic stress disorder, unspecified; F17.210 Nicotine dependence, cigarettes, uncomplicated; Z71.6 Tobacco abuse counseling; Z20.822 Contact with and (suspected) exposure to COVID-19
CPT/HCPCS: 93005; 87070; 85025; 80048; 36415; 83735; 85610; 80076; 87081; 84484; 83880; 0240U; 71045; 94640 ×3; 96374; 99285; J1650; J7605 ×2; J2930; J2920 ×3; G0378 ×3

== ENCOUNTER 2021-08-28 05:32 | Inpatient (IN) | payer OTHER ==
--- OUTSIDE RECORDS SUMMARY | 2021-08-28 05:34 | XMS REPORT | Continuity of Care Document ---
:1965 Author Organization [facility] t Address [address] [place] [address] Care Team Providers Name Role Phone PCP, DOES NOT HAVE A Primary Care Physician Unavailable Inés STATON Attending Clinician Unavailable Inés Staton DO Attending Clinician FISH Attending Clinician Unavailable Doctor Unassigned, Name Attending Clinician Unavailable Inés STATON Admitting Clinician Unavailable Payers Payer Name Policy Type Policy Number Effective Date Expiration Date S marisa [facility] [id number] 2014 00:00:00 PLUS Problems Condition Condition Condition Status Onset Resolution Last Treating Co mments Source Name Details Category Date Date Treatment Clinician Date No known No known Disease Unive rs active active ity of problems problems [facility] Allergies, Adverse Reactions, Alerts Allergy Allergy Status Severity Reaction(s) Onset Inactive Treating Comm ents Source Name Type Date Date Clinician NO KNOWN Drug Active Univers ALLERGIE Class ity of S [facility] Social History Social Habit Start Date Stop Date Quantity Comments Source Exposure to Not sure [facility] SARS-CoV-2 (event) [facility] Alcohol intake 2021-06-14 2021-06-14 Ex-drinker University of 00:00:00 00:00:00 (finding) [facility] Cigarettes smoked 2020-08-17 2020-08-17 Univers ity of current (pack per 00:00:00 00:00:00 ) - Reported Branch Cigarette 2020-08-17 2020-08-17 University of pack-years 00:00:00 00:00:00 [facility] Tobacco use and 2020-08-17 2020-08-17 Never used Universit y of exposure 00:00:00 00:00:00 [facility] Sex [birth year] Universit y of 00:00:00 00:00:00 [facility] Smoking Status Start Date Stop Date Source Current every day smoker 2020-08-17 00:00:00 Uni versity [facility] Unknown if ever smoked [facility] y [facility] Medications Ordered Filled Start Stop Current Ordering Indication Dosage Frequency Signature Comments Components Source Medication Medication Date Date Medication? Clinician (SIG) Name Name clobetasoL Yes [id number] Apply to Univers 0.05 % 1-12 area(s) 2 ity of ointment 00:00: (two) [place] 00 times Medical daily. Two Branch times daily for 4 weeks, then nightly for 4 weeks, then every other night albuterol Yes Univers 90 1-11 ity of mcg/actuati 00:00: [place] on inhaler [facility] azithromyci Yes Univer s n 250 mg 1-11 ity of tablet 00:00: [place] 00 [facility] predniSONE Yes Univers 20 mg 1-11 ity of tablet 00:00: [place] 00 [facility] triamcinolo 2018-0 Yes [id number] Apply to Univers ne 0.025 % 5-15 area(s) 2 ity of ointment 00:00: (two) [place] 00 times Medical daily. Branch Immunizations Ordered Filled Immunization Date Status Comments Sourc e Immunization Name Name Influenza Virus 2020-08-17 Completed Universit y of Vaccine Quad .5 mL 00:00:00 [facility] 6+ MO [place] Vital Signs Vital Name Observation Time Observation Value Comments Source Systolic blood 2021-06-14 18:24:00 140 mm[Hg] Univer sity of pressure [facility] Diastolic blood 2021-06-14 18:24:00 84 mm[Hg] Unive rsity of pressure [facility] Heart rate 2021-06-14 18:24:00 81 /min [facility] Body temperature 2021-06-14 18:24:[address] [facility] Respiratory rate 2021-06-14 18:24:00 18 /min [facility] Body height 2021-06-14 18:24:00 167.6 cm [facility] Body weight 2021-06-14 18:24:00 68.04 kg [facility] BMI 2021-06-14 18:24:00 24.21 kg/m2 [facility] Oxygen saturation in 2021-06-14 18:24:00 98 /min [facility] blood by [facility] Pulse oximetry Branch Procedures Procedure Date / Time Performed Performing Clinician Sourc e CT 2021-06-14 18:40:48 Cleopatra Staton [facility] MAXILLOFACIAL/MANDIBLE Medical [place] WO CONTRAST CT TRAUMA HEAD WO 2021-06-14 18:40:48 Cleopatra Staton [facility] CONTRAST [facility] CT TRAUMA CERVICAL 2021-06-14 18:40:48 Cleopatra Staton [facility] SPINE WO CONTRAST [facility] ASSIGNMENT OF BENEFITS 2020-08-17 19:04:00 Doctor Unassigned, No [facility] Encounters Start End Encounter Admission Attending Care Care Encounter Source Date/Time Date/Time Type Type Clinicians Facility Department ID 2021-06-14 2021-06-14 Emergency X SHEMAR [facility] ERT [id number] Univers 12:25:00 13:39:00 CLEOPATRA [facility] 2021-06-14 2021-06-14 Emergency Shemar [facility] [id number] Univers 12:25:00 13:39:00 Cleopatra ORTEZ [id number] [facility] [id number] [facility] [id number] [facility] 084 Branch 2021-02-28 2021-02-28 Outpatient R SALLY CLEMENS [facility] [id number] Univers 15:00:00 15:00:00 [id number] [facility] 2021-02-28 2021-02-28 Outpatient R SALLY [facility]ENS [facility] [id number] Univers 15:00:00 [facility]:00:[facility] 2020-09-28 2020-09-28 Outpatient R SALLY CLEMENS [facility] [id number] Univers 15:00:00 15:00:00 [id number] [facility] 2020-09-28 2020-09-28 Outpatient SALLY LOO [facility] [id number] Univers 15:00:00 15:00:00 ity [facility] 2020-08-17 2020-08-17 Outpatient SALLY LOO [facility] [id number] Univers 13:00:00 13:00:00 ity [facility] 2020-08-17 2020-08-17 Orders Doctor SANDIP [id number] 00:00:00 00:00:00 Only Unassigned, YONATAN [id number] [facility] [id number] 2020-08-17 2020-08-17 Orders Doctor SANDIP [id number] [facility] 00:00:00 00:00:00 Only Unassigned, YONATAN [id number] ity of [facility] [id number] [place] [id number] [place] [address] Branch Results This patient has no known results.
[2021-08-28] MEDS ORDERED: levoFLOXacin 500 MG TAB ONE (06:13)
[2021-08-28] MEDS ORDERED: levoFLOXacin 250 MG TAB ONE (06:13)
[2021-08-28] MEDS ORDERED: LEVALBUTEROL 1.25 MG/3 ML NEB ONE (06:13)
[2021-08-28] MEDS ORDERED: METHYLPREDNISOLONE 125 MG INJ ONE (06:13)
[2021-08-28] MEDS ORDERED: NA CHLORIDE 0.9% 1,000 ML ONE (06:14)
[2021-08-28] MEDS ORDERED: NA CHLORIDE 0.9% 500 ML ONE (06:14)
[2021-08-28] MEDS ORDERED: IPRATROPIUM BROM 0.5MG/2.5ML ONE (06:14)
[2021-08-28] MEDS ORDERED: Magnesium Sulfate 2gm IVPB 2 G/50 ML BAG IV ONE (06:14)
--- NOTE | 2021-08-28 06:14 | ER ---
Nurse's Notes [facility] Name: Luanne Sagastume Age: 56 yrs Sex: Female : 1965 Arrival Date: 08/28/2021 Time: 05:32 Bed 6 Private MD: Diagnosis: COPD/ Chronic obstructive pulmonary disease with (acute) exacerbation;Hypoxemia Presentation: 08/28 05:41 Chief complaint: Patient states: C/o SOB for the past 2 days, getting worse. mk Tachycardic at the time of triage with an SpO2 of 90% on RA, coughing occasionally, hx COPD, emphysema, asthma, hypothyroidism. Coronavirus screen: Vaccine status: Patient reports being unvaccinated. Patient reports having had a previously documented Covid positive illness. Ebola Screen: Patient negative for fever greater than or equal to 101.5 degrees Fahrenheit, and additional compatible Ebola Virus Disease symptoms. Initial Sepsis Screen: Does the patient meet any 2 criteria? RR > 20 per min. HR > 90 bpm. Does the patient have a suspected source of infection? No. Patient's initial sepsis screen is negative. Risk Assessment: Do you want to hurt yourself or someone else?. Onset of symptoms was August 27, 2021. 05:41 Method Of Arrival: Ambulatory 05:41 Acuity: YINA 2 mk Triage Assessment: 05:54 General: Appears distressed, Behavior is cooperative. Pain: Denies pain. Neuro: Level mk of Consciousness is awake, alert, obeys commands, Oriented to person, place, time, situation. Cardiovascular: Heart tones S1 S2 present Pulses are 2+ in right radial artery, right dorsalis pedis artery, left radial artery and left dorsalis pedis artery. Respiratory: Reports shortness of breath Trachea Breath sounds with crackles Onset: The symptoms/episode began/occurred gradually, the patient has moderate shortness of breath. Historical: - Allergies: 05:55 No Known Allergies; mk - Home Meds: 05:55 albuterol sulfate 2.5 mg /3 mL (0.083 %) Inhl nebu 3 mL [Active]; prednisone 1 mg Oral mk tab once daily [Active]; - PMHx: 05:55 Asthma; COPD; Hypothyroidism; Hyperlipidemia; mk - Immunization history:: Adult Immunizations up to date, Client reports having NOT received the Covid vaccine. - Social history:: Smoking status: Patient reports the use of cigarette tobacco products. - Family history:: not pertinent. Screenin:53 Abuse screen: Denies threats or abuse. Nutritional screening: No deficits noted. mk Tuberculosis screening: Fall Risk No fall in past 12 months (0 pts). Secondary diagnosis (15 points) decreased o2. IV access (20 points). Ambulatory Aid- None/Bed Rest/Nurse Assist (0 pts). Gait- Normal/Bed Rest/Wheelchair (0 pts) Mental Status- Oriented to own ability (0 pts). Total Louis Fall Scale indicates No Risk (0-24 pts). Assessment: 05:56 Pain: Denies pain. Neuro: Level of Consciousness is awake, alert, obeys commands, mk Oriented to person, place, time, situation, Moves all extremities. Gait is steady, Speech is normal, Facial symmetry appears normal, Pupils are PERRLA, Pupil Size: 4mm bilaterally. Cardiovascular: Denies Heart tones S1 S2 present Capillary refill < 3 seconds in bilateral fingers toes Clubbing of nail beds is absent Patient's skin is warm and dry. Rhythm is sinus tachycardia. Respiratory: Airway Respiratory effort is even, labored, pursed lip, using tripod position, Breath sounds with crackles. GI: Abdomen is non-distended, Bowel sounds present X 4 quads. Abd is soft and non tender X 4 quads. : No signs and/or symptoms were reported regarding the genitourinary system. Derm: Skin is intact, is healthy with good turgor, Skin is dry, Skin is pink, warm \\T\\ dry. Skin temperature is warm. 05:59 General: Appears distressed. tw5 06:50 General: Behavior is anxious, Reports " I just feel so sick, so weak, I feel like I am tw5 not going to make it.". Respiratory: Airway is patent Trachea midline Respiratory effort is labored, pursed lip, using tripod position. 08:43 Reassessment: Patient appears in no apparent distress at this time. No changes from ic1 previously documented assessment. Patient is alert, oriented x 3, equal unlabored respirations, skin warm/dry/pink. Provided w cup of water as requested. Pt tolerating. IV fluids infusing at this time. Patient denies pain at this time. 10:08 Reassessment: Notes found in [facility]. ic1 Vital Signs: 05:41 BP 111 / 97; Pulse 114; Resp 18; Temp 98.9(O); Pulse Ox 90% on R/A; mk 05:55 Pulse 109; Resp 22; Pulse Ox 95% on 2 lpm NC; mk 06:26 BP 120 / 73; Pulse 110; Resp 22; Pulse Ox 93% on 2 lpm NC; tw5 09:53 BP 102 / 69; Pulse 94; Resp 20; Pulse Ox 93% on 2 lpm NC; ic1 ED Course: 05:32 Patient arrived in ED. ja2 05:39 Ronal Rutherford MD is Attending Physician. valente 05:41 Shruthi Lim, RN is Primary Nurse. mk 05:53 Triage completed. mk 05:59 Patient has correct armband on for positive identification. Placed in gown. Bed in low tw5 position. Call light in reach. Side rails up X2. security monitor on. Pulse ox on. NIBP on. Door closed. Noise minimized. Moved to private room. Warm blanket given. Verbal reassurance given. 05:59 Arm band placed on Patient placed in the treatment room. mk 05:59 Initial lab(s) drawn, by me, sent to lab. Inserted saline lock: 22 gauge in right tw5 forearm, using aseptic technique. ,using aseptic technique. ultrasound guided IV Blood collected. 06:00 No provider procedures requiring assistance completed. tw5 06:01 EKG completed in triage. Results shown to . mk 06:05 Diet: Patient given water. tw5 06:12 Jona Gomez MD is Hospitalizing Provider. valente 06:26 First set of blood cultures drawn by me. tw5 06:26 First set of blood cultures drawn EKG done, by ED staff, reviewed by Jona Gomez MD. tw5 06:34 XRAY Chest (1 view) In Process Unspecified. EDMS 06:38 COVID-19/FLU A+B/RSV (Document "Date of Onset" if Symptomatic) Sent. tw5 06:38 Blood Culture Adult (2) Sent. tw5 06:50 Assisted to bedside commode. tw5 06:50 Oxygen administration via nasal cannula \\T\\ 2L/min. tw5 06:51 Blood Culture Adult (2) Sent. tw5 10:58 Patient admitted, IV remains in place. intact, No redness/swelling at site. jl7 Administered Medications: 06:23 Drug: Xopenex (levalbuterol) 3.75 mg Route: Inhalation; 06:23 Drug: AtroVENT (ipratropium) Aerosol 0.5 mg Route: Inhalation; 06:28 Drug: SOLU-Medrol (methylPrednisoLONE) 125 mg Route: IVP; Site: right forearm; 06:33 Drug: NS 0.9% 1000 ml Route: IV; Rate: 125 ml/hr; Site: right forearm; 06:34 Drug: NS 0.9% 500 ml Route: IV; Rate: bolus; Site: right forearm; 06:38 Drug: Magnesium Sulfate 2 grams Route: IVPB; Infused Over: 2 hrs; Site: right forearm; 06:38 Drug: LevOfloxacin 750 mg Route: PO; Outcome: 06:13 Decision to Hospitalize by Provider. valente 09:49 Admitted to Med/surg accompanied by nurse, via stretcher, with oxygen. ic1 09:49 Admitted to Med/surg 09:49 Condition: stable 10:52 Admitted to Med/surg Report called to ALDO Obregon. Questions answered. ic1 10:58 Patient left the ED. 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
--- NOTE | 2021-08-28 06:14 | EDPHYS ---
Physician Documentation [facility] Name: Luanne Sagastume Age: 56 yrs Sex: Female : 1965 Arrival Date: 08/28/2021 Time: 05:32 Bed 6 Private MD: ED Physician Ronal Rutherford HPI: 08/28 06:06 This 56 yrs old Female presents to ER via Ambulatory with complaints of valente Breathing Difficulty. 06:06 The patient has shortness of breath at rest, with light activity. Onset: The valente symptoms/episode began/occurred 3 day(s) ago. Duration: The symptoms are continuous, and are steadily getting worse, are intermittent, with episodes lasting. The patient's shortness of breath has no apparent modifying factors. Associated signs and symptoms: The patient has no apparent associated signs or symptoms. Severity of symptoms: At their worst the symptoms were moderate in the emergency department the symptoms are unchanged. The patient has not experienced similar symptoms in the past. Historical: - Allergies: 05:55 No Known Allergies; mk - Home Meds: 05:55 albuterol sulfate 2.5 mg /3 mL (0.083 %) Inhl nebu 3 mL [Active]; prednisone 1 mg Oral mk tab once daily [Active]; - PMHx: 05:55 Asthma; COPD; Hypothyroidism; Hyperlipidemia; mk - Immunization history:: Adult Immunizations up to date, Client reports having NOT received the Covid vaccine. - Social history:: Smoking status: Patient reports the use of cigarette tobacco products. - Family history:: not pertinent. ROS: 06:06 Constitutional: Negative for fever, chills, and weight loss, Eyes: Negative for injury, valente pain, redness, and discharge, ENT: Negative for injury, pain, and discharge, Neck: Negative for injury, pain, and swelling, Cardiovascular: Negative for chest pain, palpitations, and edema, Abdomen/GI: Negative for abdominal pain, nausea, vomiting, diarrhea, and constipation, Back: Negative for injury and pain, : Negative for injury, bleeding, discharge, and swelling, MS/Extremity: Negative for injury and deformity, Skin: Negative for injury, rash, and discoloration, Neuro: Negative for headache, weakness, numbness, tingling, and seizure, Psych: Negative for depression, anxiety, suicide ideation, homicidal ideation, and hallucinations, Allergy/Immunology: Negative for hives, rash, and allergies, Endocrine: Negative for neck swelling, polydipsia, polyuria, polyphagia, and marked weight changes, Hematologic/Lymphatic: Negative for swollen nodes, abnormal bleeding, and unusual bruising. 06:06 Respiratory: Positive for cough, pleurisy, shortness of breath, on exertion. Exam: 06:06 Constitutional: This is a well developed, well nourished patient who is awake, alert, valente and in no acute distress. Head/Face: Normocephalic, atraumatic. Eyes: Pupils equal round and reactive to light, extra-ocular motions intact. Lids and lashes normal. Conjunctiva and sclera are non-icteric and not injected. Cornea within normal limits. Periorbital areas with no swelling, redness, or edema. ENT: Nares patent. No nasal discharge, no septal abnormalities noted. Tympanic membranes are normal and external auditory canals are clear. Oropharynx with no redness, swelling, or masses, exudates, or evidence of obstruction, uvula midline. Mucous membranes moist. Neck: Trachea midline, no thyromegaly or masses palpated, and no cervical lymphadenopathy. Supple, full range of motion without nuchal rigidity, or vertebral point tenderness. No Meningismus. Chest/axilla: Normal chest wall appearance and motion. Nontender with no deformity. No lesions are appreciated. Cardiovascular: Regular rate and rhythm with a normal S1 and S2. No gallops, murmurs, or rubs. Normal PMI, no JVD. No pulse deficits. Abdomen/GI: Soft, non-tender, with normal bowel sounds. No distension or tympany. No guarding or rebound. No evidence of tenderness throughout. Back: No spinal tenderness. No costovertebral tenderness. Full range of motion. Female : Normal external genitalia. Skin: Warm, dry with normal turgor. Normal color with no rashes, no lesions, and no evidence of cellulitis. 06:06 Respiratory: mild respiratory distress is noted. 06:56 ECG was reviewed by the Attending Physician. [facility] Vital Signs: 05:41 BP 111 / 97; Pulse 114; Resp 18; Temp 98.9(O); Pulse Ox 90% on R/A; mk 05:55 Pulse 109; Resp 22; Pulse Ox 95% on 2 lpm NC; mk 06:26 BP 120 / 73; Pulse 110; Resp 22; Pulse Ox 93% on 2 lpm NC; tw5 09:53 BP 102 / 69; Pulse 94; Resp 20; Pulse Ox 93% on 2 lpm NC; ic1 MDM: 05:39 Patient medically screened. [facility] 06:09 Differential diagnosis: Bronchitis CHF exacerbation, Chronic Obstructive Pulmonary valente Disease pulmonary edema, reactive airway disease, Sepsis. Antibiotic administration: Levaquin given. The patient's Wells Deep Vein Thrombosis Score was calculated as follows: Heart Rate >100 BPM (1.5 Pts) Total Score: 0-2 Pts- Low Risk. The patient's pulmonary embolism risk score was calculated as follows: Total Score: 0-2 points. This patient was found to be at low risk for a pulmonary embolism by using the Well's assessment criteria. Immunization status: Influenza vaccine: Not up to date. Data reviewed: vital signs, nurses notes, lab test result(s), EKG, radiologic studies, CT scan, plain films. 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 Test interpretation: by ED physician or midlevel provider: ECG, plain radiologic studies. Counseling: I had a detailed discussion with the patient and/or guardian regarding: the historical points, exam findings, and any diagnostic results supporting the discharge/admit diagnosis, lab results, radiology results, the need for further work-up and treatment in the hospital. 08/28 06:06 Order name: Basic Metabolic Panel [facility] 08/28 06:06 Order name: CBC with Diff [facility] 08/28 06:06 Order name: LFT's [facility] 08/28 06:06 Order name: Magnesium [facility] 08/28 06:06 Order name: NT PRO-BNP [facility] 08/28 06:06 Order name: PT-INR [facility] 08/28 06:06 Order name: Troponin HS [facility] 08/28 06:06 Order name: XRAY Chest (1 view) [facility] 08/28 06:06 Order name: Blood Culture Adult (2) [facility] 08/28 06:06 Order name: COVID-19/FLU A+B/RSV (Document "Date of Onset" if Symptomatic) [facility] 08/28 06:06 Order name: EKG; Complete Time: 06:07 [facility] 08/28 06:06 Order name: Cardiac monitoring; Complete Time: 06:25 [facility] 08/28 06:06 Order name: EKG - Nurse/Tech; Complete Time: 06:51 valente 08/28 06:06 Order name: IV Saline Lock; Complete Time: 06:25 [facility] 08/28 06:06 Order name: Labs collected and sent; Complete Time: 06:25 valente 08/28 06:06 Order name: O2 Per Protocol; Complete Time: 06:25 [facility] 08/28 06:06 Order name: O2 Sat Monitoring; Complete Time: 06:25 [facility] 08/28 06:49 Order name: CONS Physician Consult EDTX EC:56 Rate is 114 beats/min. Rhythm is regular. QRS [place] is Normal. NE interval is normal. valente QRS interval is normal. QT interval is normal. No Q waves. T waves are Normal. No ST changes noted. Clinical impression: Sinus tachycardia and No evidence of ischemia. Interpreted by me. Reviewed by me. Administered Medications: 06:23 Drug: Xopenex (levalbuterol) 3.75 mg Route: Inhalation; tw5 06:23 Drug: AtroVENT (ipratropium) Aerosol 0.5 mg Route: Inhalation; tw5 06:28 Drug: SOLU-Medrol (methylPrednisoLONE) 125 mg Route: IVP; Site: right forearm; tw5 06:33 Drug: NS 0.9% 1000 ml Route: IV; Rate: 125 ml/hr; Site: right forearm; tw5 06:34 Drug: NS 0.9% 500 ml Route: IV; Rate: bolus; Site: right forearm; tw5 06:38 Drug: Magnesium Sulfate 2 grams Route: IVPB; Infused Over: 2 hrs; Site: right forearm; tw5 06:38 Drug: LevOfloxacin 750 mg Route: PO; tw5 Disposition Summary: 08/28/21 06:13 Hospitalization Ordered Hospitalization Status: Inpatient Admission valente Provider: Jona Gomez cha Location: Telemetry/MedSurg (Inpatient) valente Condition: Fair valente Problem: new valente Symptoms: have improved valente Bed/Room Type: Standard valente Room Assignment: 214(08/28/21 09:36) eb Diagnosis - COPD/ Chronic obstructive pulmonary disease with (acute) exacerbation valente - Hypoxemia valente Forms: - Medication Reconciliation Form valente - SBAR form valente Signatures: Dispatcher [employer] EDTX Ronal Rutherford MD MD cha Botello, Elizabeth eb [place], Angi tw5 Shruthi Lim, RN RN mk Corrections: (The following items were deleted from the chart) 05:56 05:55 PMHx: PTSD; [facility] 05:56 05:55 PMHx: High Cholesterol; [facility] 05:56 05:55 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
[2021-08-28 06:23] LABS: Absolute Lymphocytes (CBC) 0.6 K/uL (0.7-4.9); Hematocrit 42.3 % (36.0-45.0); MPV 8.9 fL (7.6-11.3); RBC Red Blood Cell Count 4.61 M/uL (3.86-4.86)
[2021-08-28 06:46] LABS: ALT/SGPT 31 U/L (12-78); AST/SGOT 15 U/L (15-37); Albumin 4.2 g/dL (3.4-5.0); Alkaline Phosphatase 83 U/L (45-117); BUN Blood Urea Nitrogen 20 mg/dL (7-18); Bicarbonate 29 mmol/L (21-32); Bilirubin Direct < 0.1 mg/dL (0-0.2); Bilirubin Total 0.2 mg/dL (0.2-1.0); Glucose Level 98 mg/dL (74-106); Magnesium 2.2 mg/dL (1.8-2.4); NT PRO-BNP 59 pg/mL (<125); Potassium 3.3 mmol/L (3.5-5.1); Protein, Total 8.3 g/dL (6.4-8.2); Sodium Level 137 mmol/L (136-145)
--- NOTE | 2021-08-28 06:53 | P.HP ---
Certification for Inpatient Patient admitted to: Inpatient With expected LOS: >2 Midnights Practitioner: I am a practitioner with admitting privileges, knowledge of patient current condition, hospital course, and medical plan of care. Services: Services provided to patient in accordance with Admission requirements found in Title 42 Section 412.3 of the Code of Federal Regulations Patient History Date of Service: 08/28/21 Reason for admission: COPD exacerbation History of Present Illness: 56yo F, PMH: COPD, hypothyroid, presented to ED due to 2 days of progressively worsening SOB. Associated with chills last night, wheeze, and cough. Also with headache over last week. Has not smoked in ~2 weeks. Recently discharged a few days ago for COPD exacerbation. States she has been taking prednisone 20mg BID and using her inhalers with no help. Didn't sleep much last night. In the ED, found to be tachypneic and hypoxic on room air. Placed on oxygen, given steroids, and nebs. Allergies No Known Allergies Allergy (Unverified 04/09/19 13:45) Home Medications: Albuterol Inhaler [Ventolin Inhaler*] 2 puff IH TID PRN #1 [email or web address] 08/25/21 Budesonide/Formoterol Fumarate [Symbicort 160-4.5 Mcg Inhaler] 2 puff IH BID #1 hfa.aer.ad 08/25/21 Nicotine [Nicoderm*] 21 mg TD DAILY #30 patch.td24 08/25/21 predniSONE [Prednisone*] 20 mg PO SEECOM #21 tab 08/25/21 - Past Medical/Surgical History Diabetic: No -: COPD -: Hypothyroidism -: Hyperlipidemia -: PTSD -: -: Right ankle reconstruction Psychosocial/ Personal History: Patient lives in a trailer - Social History Smoking Status: Current every day smoker Alcohol use: No CD- Drugs: No Caffeine use: Yes Place of Residence: Home Review of Systems 10-point ROS is otherwise unremarkable Physical Examination - Physical Exam General: Alert, Moderate distress HEENT: Sclerae nonicteric Respiratory: Diminished, Expiratory wheezes Cardiovascular: No edema, Regular rate/rhythm Gastrointestinal: Soft and benign, Non-distended, No tenderness Musculoskeletal: No tenderness Integumentary: No rashes, No significant lesion Neurological: Normal speech, Normal affect - Studies Laboratory Data (last 24 hrs) 08/28/21 06:15: PT 11.5, INR 1.00 08/28/21 06:15: WBC 5.90 D, Hgb 14.0, Hct 42.3, Plt Count 195 08/28/21 06:15: Sodium 137, Potassium 3.3 L, BUN 20 H, Creatinine 0.76, Glucose 98, Magnesium 2.2, Total Bilirubin 0.2, AST 15, ALT 31, Alkaline Phosphatase 83 Assessment and Plan - Advance Directives Does patient have a Living Will: No Does patient have a Durable POA for Healthcare: No Physician Review Additional Text: Problem List acute hypoxemic respiratory failure secondary to acute on chronic COPD exacerbation Hypothyroid Tobacco abuse admit to med/surg IV steroids, nebs Pulm consulted, patient recently discharged ~2 days ago wean O2 as tolerated nicotine patch COVID pending VTE: lovenox Code: full Dispo: anticipate dc home in ~2 days Time Spent Managing Pts Care (In Minutes): 60
--- NOTE | 2021-08-28 07:33 | RAD REPORT ---
EXAM DESCRIPTION: RAD - Chest Single View - 08/28/2021 6:34 am CLINICAL HISTORY: COPD COMPARISON: No comparisonsChest Single View dated 08/24/2021; Chest Single View dated 04/17/2021; Ches t Single View dated 03/28/2021; Chest Single View dated 08/15/2020 FINDINGS: Lines: None. Lungs: No evidence of edema or pneumonia. Pleural: No significant pleural effusions or pneumothorax. Cardiac: The heart size is within normal limits. Bones: No acute fractures. Other: IMPRESSION: No acute cardiopulmonary disease. The patient may be a candidate for annual low dose lung cancer screening CT.
[2021-08-28] MEDS ORDERED: ONDANSETRON 4 MG/2 ML VIAL IV PRN (08:48)
[2021-08-28] MEDS ORDERED: IPRATROPIUM BROM 0.5MG/2.5ML NEB PRN (08:48)
[2021-08-28 08:50] LABS: SARS-COV-2 RT PCR NEGATIVE (NEGATIVE)
[2021-08-28] MEDS: ACETAMINOPHEN 500 MG TAB PO PRN ×2 (08:54→18:26)
[2021-08-28] MEDS: METHYLPREDNISOLONE 125 MG INJ IV SCH ×2 (09:00→20:40)
--- NOTE | 2021-08-28 11:44 | P.CNS ---
Date of Consult: 08/28/21 Reason for Consult: COPD exacerbation Chief Complaint: COPD exacerbation History of Present Illness: Patient is 56 years of age with a history of COPD he was admitted came right back again and was admitted to the hospital planing of coughing wheezing was discharged home on prednisone did not improve patient has Symbicort at home admitted with worsening dyspnea/ Exposed to mold moved to a trailer sick since then . Got much worse no rellief with steroids Allergies No Known Allergies Allergy (Unverified 04/09/19 13:45) Home Medications: Albuterol Inhaler [Ventolin Inhaler*] 2 puff IH TID PRN #1 hfa.aer.ad 08/25/21 Budesonide/Formoterol Fumarate [Symbicort 160-4.5 Mcg Inhaler] 2 puff IH BID #1 hfa.aer.ad 08/25/21 Nicotine [Nicoderm*] 21 mg TD DAILY #30 patch.td24 08/25/21 predniSONE [Prednisone*] 20 mg PO SEECOM #21 tab 08/25/21 - Past Medical/Surgical History Diabetic: No -: COPD -: Hypothyroidism -: Hyperlipidemia -: PTSD -: ptsd -: -: Right ankle reconstruction Psychosocial/ Personal History: Patient lives in a trailer - Social History Smoking Status: Current every day smoker Alcohol use: No CD- Drugs: No Caffeine use: Yes Place of Residence: Home Review of Systems General: Weakness ENT: Nose Discharge Respiratory: Shortness of Breath Physical Examination Temp Pulse Resp BP Pulse Ox 94 H 20 102/69 93 08/28/21 08:00 08/28/21 08:00 08/28/21 08:00 08/28/21 08:00 General: Alert, In no apparent distress, Oriented x3 Respiratory: Diminished, Expiratory wheezes Cardiovascular: No edema, Regular rate/rhythm Laboratory Data (last 24 hrs) 08/28/21 06:15: PT 11.5, INR 1.00 08/28/21 06:15: WBC 5.90 D, Hgb 14.0, Hct 42.3, Plt Count 195 08/28/21 06:15: Sodium 137, Potassium 3.3 L, BUN 20 H, Creatinine 0.76, Glucose 98, Magnesium 2.2, Total Bilirubin 0.2, AST 15, ALT 31, Alkaline Phosphatase 83 - Problems (1) COPD exacerbation Current Visit: Yes Status: Acute Plan: Patient is 56 years of age admitted with COPD exacerbation. Exposed to mold in trailer . StillSOB / LAbs chem rev. CXRY clear CW present TX
[2021-08-28] MEDS: ENOXAPARIN 40 MG/0.4 ML SQ SCH (11:55)
[2021-08-28] MEDS: IPRATROPIUM BROM 0.5MG/2.5ML NEB SCH ×2 (13:44→20:00)
[2021-08-28] MEDS: BENZONATATE 100 MG CAP PO PRN (20:40)
[2021-08-28] MEDS ORDERED: POTASSIUM 25 MEQ EFFERV TAB PO ONE (21:00)
[2021-08-28 21:51] LABS: Urine Appearance CLEAR (Clear); Urine Bilirubin NEGATIVE (Negative); Urine Blood NEGATIVE (Negative); Urine Color YELLOW (Yellow); Urine Glucose 3+ (Negative); Urine Protein NEGATIVE (Negative); Urine Specific Gravity 1.025 (1.005-1.030); Urine Urobilinogen 0.2 mg/dL (0.2-1.0)
[2021-08-28 21:53] LABS: Urine Microscopic Reflex NO UMIC
[2021-08-29] MEDS: IPRATROPIUM BROM 0.5MG/2.5ML NEB SCH ×4 (01:05→20:15)
[2021-08-29] MEDS: ALBUTEROL 2.5 MG/3 ML NEB SOL NEB PRN ×3 (03:34→14:35)
[2021-08-29] MEDS ORDERED: IPRATROPIUM BROM 0.5MG/2.5ML NEB ONE (03:34)
[2021-08-29] MEDS: GUAIFENESIN/CODEINE 5ML UCUP PO PRN ×3 (03:40→18:04)
[2021-08-29] MEDS: ACETAMINOPHEN 500 MG TAB PO PRN ×3 (03:40→16:18)
[2021-08-29 06:05] LABS: Absolute Lymphocytes (CBC) 0.9 K/uL (0.7-4.9); Hematocrit 38.3 % (36.0-45.0); Lymphocytes % 17.7 % (15.3-44.8); MPV 9.3 fL (7.6-11.3); RBC Red Blood Cell Count 4.16 M/uL (3.86-4.86)
--- NOTE | 2021-08-29 06:06 | P.PN ---
Date of Service: 08/29/21 Subjective: Coughing episode this morning, became hypoxic into the low 80s, tach symptoms of nonspecific Oxygen requirement increased ROS: 10 point ROS as noted above, otherwise negative Physical exam GEN: Alert, mild distress HEENT: Normal conjunctiva, sclera anicteric CV: Regular rate and rhythm, no edema Pulm: Diffuse wheeze heard bilaterally, on 3 L nasal cannula ABD: Soft, nontender, nondistended Neuro: Normal speech, normal affect Problem List acute hypoxemic respiratory failure secondary to acute on chronic COPD exacerbation Hypothyroid Tobacco abuse Continue steroids, nebs Pulm consulted, patient recently discharged ~2-3 days ago wean O2 as tolerated COVID negative episode last night, o2 requirement increased lungs remain with wheeze VTE: lovenox Code: full Dispo: anticipate dc home in ~1-2 days Time Spent Managing Pts Care (In Minutes): 35
[2021-08-29 06:31] LABS: BUN Blood Urea Nitrogen 21 mg/dL (7-18); Bicarbonate 30 mmol/L (21-32); Glucose Level 101 mg/dL (74-106); Magnesium 2.4 mg/dL (1.8-2.4); Sodium Level 139 mmol/L (136-145)
[2021-08-29] MEDS ORDERED: INFLUENZA VACCINE (for 6+ mo) 0.5 ML DOSE IMVAC ONE (08:00)
--- NOTE | 2021-08-29 08:04 | EKG ---
Test Date: 2021-08-28 Test Time: 06:44:50 Director Of Agriculture: MEASUREMENT RESULTS: Intervals: Rate: 114 PA: 140 QRSD: 88 QT: 322 QTc: 443 [place]: P: 62 PA: 140 QRS: 66 T: 74 INTERPRETIVE STATEMENTS: Sinus tachycardia Otherwise normal ECG Compared to ECG 08/24/2021 08:29:37 Sinus rhythm no longer present Electronically Signed On 08-29-21 08:02:50 [employer] by John Trujillo
[2021-08-29] MEDS: BENZONATATE 100 MG CAP PO PRN ×2 (08:32→16:18)
[2021-08-29] MEDS: METHYLPREDNISOLONE 125 MG INJ IV SCH (08:32)
[2021-08-29] MEDS: ENOXAPARIN 40 MG/0.4 ML SQ SCH (08:33)
[2021-08-29] MEDS: CEPACOL LOZENGES PO PRN ×2 (14:43→19:09)
--- NOTE | 2021-08-29 16:39 | P.PN ---
Subjective Date of Service: 08/29/21 Chief Complaint: COPD exacerbation Subjective: Improving (Slightle better c/o severe coughing spells SOBOE) Review of Systems 10-point ROS is otherwise unremarkable Respiratory: Cough, Shortness of Breath Physical Examination - Vital Signs Temperature: 97.3 F Blood Pressure: 101/55 Pulse: 86 Respirations: 22 Pulse Ox (%): 91 - Physical Exam General: Alert, Cooperative, Mild distress Respiratory: Expiratory wheezes Cardiovascular: No edema, Normal S1 S2 Assessment & Plan - Problems (Diagnosis) (1) COPD exacerbation Current Visit: Yes Status: Acute Plan: COPD exacerbation improving Poss DC 1-2 days/ Add sithromax for now / Covid neg
[2021-08-29] MEDS: AZITHROMYCIN 250 MG TAB PO SCH (18:04)
[2021-08-29] MEDS: ARFORMOTEROL TARTRATE 15 MCG/2 ML VIAL.NEB NEB SCH (20:15)
[2021-08-29] MEDS: predniSONE 20 MG TAB PO SCH (20:28)
[2021-08-29] MEDS: HYDROCODONE/CHLORPHEN 5 ML/OSYR PO PRN (21:18)
[2021-08-30] MEDS: ACETAMINOPHEN 500 MG TAB PO PRN ×2 (00:28→12:14)
[2021-08-30] MEDS: GUAIFENESIN/CODEINE 5ML UCUP PO PRN ×2 (00:29→15:29)
[2021-08-30] MEDS: IPRATROPIUM BROM 0.5MG/2.5ML NEB SCH ×4 (02:15→19:40)
[2021-08-30] MEDS: BENZONATATE 100 MG CAP PO PRN ×3 (03:02→15:29)
[2021-08-30] MEDS: CEPACOL LOZENGES PO PRN ×2 (03:02→20:29)
[2021-08-30] MEDS: ARFORMOTEROL TARTRATE 15 MCG/2 ML VIAL.NEB NEB SCH ×2 (08:24→19:40)
[2021-08-30] MEDS: HYDROCODONE/CHLORPHEN 5 ML/OSYR PO PRN ×2 (09:24→21:52)
[2021-08-30] MEDS: AZITHROMYCIN 250 MG TAB PO SCH (09:24)
[2021-08-30] MEDS: predniSONE 20 MG TAB PO SCH ×2 (09:25→20:29)
[2021-08-30] MEDS: ENOXAPARIN 40 MG/0.4 ML SQ SCH (09:25)
--- NOTE | 2021-08-30 14:37 | P.PN ---
Subjective Date of Service: 08/30/21 Chief Complaint: COPD exacerbation Patient continues to wheeze and cough. Currently maintained on 2 L oxygen by nasal cannula. No recorded fever. Physical Examination - Vital Signs Temperature: 97.4 F Blood Pressure: 99/56 Pulse: 86 Respirations: 24 Pulse Ox (%): 93 Assessment And Plan - Plan Physical exam GEN: Alert, NAD HEENT: Normal conjunctiva, sclera anicteric CV: Regular rate and rhythm, no edema Pulm: Diffuse wheeze bilaterally, no crackles. ABD: Soft, nontender, nondistended Neuro: Normal speech, normal affect Problem List acute hypoxemic respiratory failure COPD with acute exacerbation Hypothyroid Tobacco abuse Continue steroids, nebs. Pulm input appreciated. Patient started on Zithromax and Brovana Continue scheduled bronchodilators. wean O2 as tolerated Supportive measures. Tobacco cessation advised. Monitor for 1 more day for improvement.
[2021-08-30] MEDS: BUDESONIDE 0.5 MG/2 ML NEB NEB SCH (19:40)
[2021-08-30] MEDS: ALBUTEROL 2.5 MG/3 ML NEB SOL NEB PRN (19:40)
[2021-08-30] MEDS ORDERED: HOME MED 1 EA UNK (Budesonide/Formoterol Fumarate [Symbicort 160-4.5 Mcg Inhaler] 10.2 GM IH SCH (21:00)
[2021-08-31] MEDS: IPRATROPIUM BROM 0.5MG/2.5ML NEB SCH ×4 (01:05→19:40)
[2021-08-31] MEDS: GUAIFENESIN/CODEINE 5ML UCUP PO PRN ×2 (06:09→20:17)
[2021-08-31] MEDS: BENZONATATE 100 MG CAP PO PRN ×2 (06:09→20:17)
[2021-08-31] MEDS: ARFORMOTEROL TARTRATE 15 MCG/2 ML VIAL.NEB NEB SCH ×2 (08:50→19:40)
[2021-08-31] MEDS: BUDESONIDE 0.5 MG/2 ML NEB NEB SCH ×2 (08:50→19:40)
[2021-08-31] MEDS: ENOXAPARIN 40 MG/0.4 ML SQ SCH (08:58)
[2021-08-31] MEDS: AZITHROMYCIN 250 MG TAB PO SCH (08:59)
[2021-08-31] MEDS: predniSONE 20 MG TAB PO SCH (08:59)
[2021-08-31] MEDS: HYDROCODONE/CHLORPHEN 5 ML/OSYR PO PRN ×2 (09:08→22:54)
[2021-08-31] MEDS: ACETAMINOPHEN 500 MG TAB PO PRN ×2 (11:35→20:17)
[2021-08-31] MEDS: CEPACOL LOZENGES PO PRN (17:37)
--- NOTE | 2021-08-31 19:24 | P.PN ---
Subjective Date of Service: 08/31/21 Chief Complaint: COPD exacerbation Patient states she feels better. She desaturated to 85% on room air Physical Examination - Vital Signs Temperature: 97.2 F Blood Pressure: 126/84 Pulse: 76 Respirations: 20 Pulse Ox (%): 93 Assessment And Plan - Plan Physical exam GEN: Alert, NAD HEENT: Normal conjunctiva, sclera anicteric CV: Regular rate and rhythm, no edema Pulm: Mild scattered wheezes, diminished breath sounds, no crackles. ABD: Soft, nontender, nondistended Neuro: Normal speech, normal affect Problem List acute hypoxemic respiratory failure COPD with acute exacerbation Hypothyroid Tobacco abuse Continue steroids, nebs. Pulm input appreciated. Patient started on Zithromax and Brovana Continue scheduled bronchodilators. Continue to wean oxygen. Patient does not want to go home with oxygen. Supportive measures. Tobacco cessation advised.
[2021-09-01] MEDS: CEPACOL LOZENGES PO PRN (01:10)
[2021-09-01] MEDS: METHYLPREDNISOLONE 40 MG INJ IV SCH ×3 (01:11→17:00)
[2021-09-01] MEDS: IPRATROPIUM BROM 0.5MG/2.5ML NEB SCH ×4 (01:50→20:22)
[2021-09-01 04:33] LABS: Absolute Lymphocytes (CBC) 0.9 K/uL (0.7-4.9)
[2021-09-01 04:39] LABS: Hematocrit 39.8 % (36.0-45.0); Lymphocytes % 24.3 % (15.3-44.8); MPV 8.4 fL (7.6-11.3); RBC Red Blood Cell Count 4.33 M/uL (3.86-4.86)
[2021-09-01 04:48] LABS: BUN Blood Urea Nitrogen 19 mg/dL (7-18); Bicarbonate 35 mmol/L (21-32); Glucose Level 129 mg/dL (74-106); Sodium Level 138 mmol/L (136-145)
[2021-09-01] MEDS: GUAIFENESIN/CODEINE 5ML UCUP PO PRN ×3 (06:34→21:27)
[2021-09-01] MEDS: BENZONATATE 100 MG CAP PO PRN ×2 (06:34→15:08)
[2021-09-01] MEDS: BUDESONIDE 0.5 MG/2 ML NEB NEB SCH (07:57)
[2021-09-01] MEDS: ARFORMOTEROL TARTRATE 15 MCG/2 ML VIAL.NEB NEB SCH ×2 (07:57→20:22)
[2021-09-01] MEDS: HYDROCODONE/CHLORPHEN 5 ML/OSYR PO PRN ×2 (10:02→21:51)
[2021-09-01] MEDS: AZITHROMYCIN 250 MG TAB PO SCH (10:03)
[2021-09-01] MEDS: ENOXAPARIN 40 MG/0.4 ML SQ SCH (10:03)
--- NOTE | 2021-09-01 12:36 | P.PN ---
Subjective Date of Service: 09/01/21 Chief Complaint: COPD exacerbation Patient is gradually improving. Oxygen saturation is high 90s on 2 L oxygen by nasal cannula. Physical Examination - Vital Signs Temperature: 97.3 F Blood Pressure: 118/65 Pulse: 81 Respirations: 19 Pulse Ox (%): 92 Assessment And Plan - Plan Physical exam GEN: Alert, NAD HEENT: Normal conjunctiva, sclera anicteric CV: Regular rate and rhythm, no edema Pulm: Mild scattered wheezes, diminished breath sounds, no crackles. ABD: Soft, nontender, nondistended Neuro: Normal speech, normal affect Problem List acute hypoxemic respiratory failure COPD with acute exacerbation Hypothyroid Tobacco abuse Continue steroids, nebs-Brovana, Atrovent Pulm input appreciated. Continue Zithromax. Continue to wean oxygen. Patient does not want to go home with oxygen. She states she does not have enough power in her trailer for an oxygen concentrator. Supportive measures. Tobacco cessation advised.
[2021-09-01] MEDS: ACETAMINOPHEN 500 MG TAB PO PRN ×2 (15:08→21:51)
[2021-09-02] MEDS: BENZONATATE 100 MG CAP PO PRN ×2 (00:25→21:35)
[2021-09-02] MEDS: METHYLPREDNISOLONE 40 MG INJ IV SCH ×3 (00:25→17:01)
[2021-09-02] MEDS: CEPACOL LOZENGES PO PRN ×2 (00:36→06:27)
[2021-09-02] MEDS: IPRATROPIUM BROM 0.5MG/2.5ML NEB SCH ×3 (02:45→14:18)
[2021-09-02] MEDS: GUAIFENESIN/CODEINE 5ML UCUP PO PRN ×2 (06:30→17:01)
[2021-09-02] MEDS: ARFORMOTEROL TARTRATE 15 MCG/2 ML VIAL.NEB NEB SCH ×2 (07:43→19:43)
[2021-09-02] MEDS: AZITHROMYCIN 250 MG TAB PO SCH (08:53)
[2021-09-02] MEDS: HYDROCODONE/CHLORPHEN 5 ML/OSYR PO PRN ×2 (08:54→21:35)
[2021-09-02] MEDS: ENOXAPARIN 40 MG/0.4 ML SQ SCH (08:54)
--- NOTE | 2021-09-02 14:55 | P.PN ---
Subjective Date of Service: 09/02/21 Chief Complaint: COPD exacerbation Patient is gradually improving. Oxygen saturation is 89% on room air at rest. Physical Examination - Vital Signs Temperature: 96.8 F Blood Pressure: 133/75 Pulse: 80 Respirations: 21 Pulse Ox (%): 94 - Studies Microbiology Data (last 24 hrs): 08/28/21 06:45 Blood - Blood Aerobic Blood Culture - Final No growth in 5 days. 08/28/21 06:45 Blood - Blood Anaerobic Blood Culture - Final No growth in 5 days. 08/28/21 06:26 Blood - Blood Aerobic Blood Culture - Final No growth in 5 days. 08/28/21 06:26 Blood - Blood Anaerobic Blood Culture - Final No growth in 5 days. Assessment And Plan - Plan Physical exam GEN: Alert, NAD HEENT: Normal conjunctiva, sclera anicteric CV: Regular rate and rhythm, no edema Pulm: Mild scattered wheezes, diminished breath sounds, no crackles. ABD: Soft, nontender, nondistended Neuro: Normal speech, normal affect Problem List acute hypoxemic respiratory failure COPD with acute exacerbation Hypothyroid Tobacco abuse Clinically improved but still hypoxic. Continue steroids, nebs-Brovana, Atrovent Pulm input appreciated. Continue Zithromax. Continue to wean oxygen. Arranging for home oxygen. Supportive measures. Tobacco cessation advised. Discharge to home once oxygen becomes available.
[2021-09-02] MEDS: ACETAMINOPHEN 500 MG TAB PO PRN (19:31)
[2021-09-02] MEDS: ALBUTEROL 2.5 MG/3 ML NEB SOL NEB PRN (19:43)
[2021-09-03] MEDS: METHYLPREDNISOLONE 40 MG INJ IV SCH ×3 (00:44→16:00)
[2021-09-03] MEDS: GUAIFENESIN/CODEINE 5ML UCUP PO PRN ×2 (00:53→08:28)
[2021-09-03] MEDS: IPRATROPIUM BROM 0.5MG/2.5ML NEB SCH ×5 (02:00→19:30)
[2021-09-03] MEDS: ALBUTEROL 2.5 MG/3 ML NEB SOL NEB PRN ×2 (02:39→10:45)
[2021-09-03] MEDS: ARFORMOTEROL TARTRATE 15 MCG/2 ML VIAL.NEB NEB SCH ×2 (08:00→19:30)
[2021-09-03] MEDS: ACETAMINOPHEN 500 MG TAB PO PRN ×2 (08:13→13:33)
[2021-09-03] MEDS: AZITHROMYCIN 250 MG TAB PO SCH (08:14)
[2021-09-03] MEDS: ENOXAPARIN 40 MG/0.4 ML SQ SCH (08:14)
[2021-09-03] MEDS: BENZONATATE 100 MG CAP PO PRN ×3 (11:03→22:14)
[2021-09-03] MEDS: HYDROCODONE/CHLORPHEN 5 ML/OSYR PO PRN ×2 (11:07→22:14)
--- NOTE | 2021-09-03 12:16 | P.PN ---
Subjective Date of Service: 09/03/21 Chief Complaint: COPD exacerbation Patient is gradually improving. No issues overnight. Occasionally wheezing and coughing. Physical Examination - Vital Signs Temperature: 97.2 F Blood Pressure: 137/70 Pulse: 77 Respirations: 19 Pulse Ox (%): 97 - Studies Microbiology Data (last 24 hrs): 08/28/21 06:45 Blood - Blood Aerobic Blood Culture - Final No growth in 5 days. 08/28/21 06:45 Blood - Blood Anaerobic Blood Culture - Final No growth in 5 days. 08/28/21 06:26 Blood - Blood Aerobic Blood Culture - Final No growth in 5 days. 08/28/21 06:26 Blood - Blood Anaerobic Blood Culture - Final No growth in 5 days. Assessment And Plan - Plan Physical exam GEN: Alert, NAD HEENT: Normal conjunctiva, sclera anicteric CV: Regular rate and rhythm, no edema Pulm: diminished breath sounds, no crackles. No wheezes. ABD: Soft, nontender, nondistended Neuro: Normal speech, normal affect Problem List acute hypoxemic respiratory failure COPD with acute exacerbation Hypothyroid Tobacco abuse Clinically improved but still hypoxic. Continue steroids, nebs-Brovana, Atrovent Pulm input appreciated. Continue Zithromax. Continue to wean oxygen. Arranging for home oxygen. Tobacco cessation advised. Discharge to home once oxygen becomes available.
[2021-09-04] MEDS: METHYLPREDNISOLONE 40 MG INJ IV SCH ×3 (01:15→17:02)
[2021-09-04] MEDS: IPRATROPIUM BROM 0.5MG/2.5ML NEB SCH ×4 (02:32→19:50)
[2021-09-04] MEDS: ARFORMOTEROL TARTRATE 15 MCG/2 ML VIAL.NEB NEB SCH ×2 (08:37→19:50)
[2021-09-04] MEDS: AZITHROMYCIN 250 MG TAB PO SCH (09:08)
[2021-09-04] MEDS: GUAIFENESIN/CODEINE 5ML UCUP PO PRN ×3 (09:08→23:05)
[2021-09-04] MEDS: ENOXAPARIN 40 MG/0.4 ML SQ SCH (09:08)
[2021-09-04] MEDS: HYDROCODONE/CHLORPHEN 5 ML/OSYR PO PRN (11:25)
--- NOTE | 2021-09-04 16:15 | P.PN ---
Subjective Date of Service: 09/04/21 Chief Complaint: COPD exacerbation Patient reports no major changes from yesterday Occasionally wheezing and coughing. Physical Examination - Vital Signs Temperature: 97.5 F Blood Pressure: 134/81 Pulse: 63 Respirations: 22 Pulse Ox (%): 95 Assessment And Plan - Plan Physical exam GEN: Alert, NAD HEENT: Normal conjunctiva, sclera anicteric CV: Regular rate and rhythm, no edema Pulm: diminished breath sounds, no crackles. Mild scattered wheezes. ABD: Soft, nontender, nondistended Neuro: Normal speech, normal affect Problem List acute hypoxemic respiratory failure COPD with acute exacerbation Hypothyroid Tobacco abuse Clinically improved but still hypoxic. Continue nebs-Brovana, Atrovent. Transition IV steroids to p.o. prednisone Pulm is following. Completed Zithromax. Continue to wean oxygen. Arranging for home oxygen. Tobacco cessation advised. Discharge to home once oxygen becomes available.
[2021-09-04] MEDS: ALBUTEROL 2.5 MG/3 ML NEB SOL NEB PRN (19:50)
[2021-09-04] MEDS: ACETAMINOPHEN 500 MG TAB PO PRN (21:32)
[2021-09-05] MEDS: METHYLPREDNISOLONE 40 MG INJ IV SCH ×2 (00:19→09:03)
[2021-09-05] MEDS: IPRATROPIUM BROM 0.5MG/2.5ML NEB SCH ×4 (02:00→20:10)
[2021-09-05 06:08] LABS: Absolute Lymphocytes (CBC) 1.3 K/uL (0.7-4.9); Hematocrit 41.8 % (36.0-45.0); Lymphocytes % 9.4 % (15.3-44.8); MPV 8.8 fL (7.6-11.3); RBC Red Blood Cell Count 4.55 M/uL (3.86-4.86)
[2021-09-05 06:23] LABS: BUN Blood Urea Nitrogen 24 mg/dL (7-18); Bicarbonate 30 mmol/L (21-32); Glucose Level 164 mg/dL (74-106); Potassium 4.2 mmol/L (3.5-5.1); Sodium Level 137 mmol/L (136-145)
[2021-09-05 07:44] VITALS: BMI 25.2
[2021-09-05] MEDS: ARFORMOTEROL TARTRATE 15 MCG/2 ML VIAL.NEB NEB SCH ×2 (07:52→20:10)
[2021-09-05] MEDS: GUAIFENESIN/CODEINE 5ML UCUP PO PRN ×2 (09:02→20:55)
[2021-09-05] MEDS: AZITHROMYCIN 250 MG TAB PO SCH (09:03)
[2021-09-05] MEDS: ENOXAPARIN 40 MG/0.4 ML SQ SCH (09:06)
[2021-09-05 10:05] LABS: Blood Morphology Comment NOT SEEN (NOT SEEN); Platelet Estimate ADEQ
--- NOTE | 2021-09-05 11:45 | P.PN ---
Subjective Date of Service: 09/05/21 Chief Complaint: COPD exacerbation Patient reports no major changes from yesterday. Occasionally wheezing and coughing. SPO2 dropped to the high 70s on room air today. Physical Examination - Vital Signs Temperature: 97 F Blood Pressure: 102/69 Pulse: 93 Respirations: 18 Pulse Ox (%): 95 Assessment And Plan - Plan Physical exam GEN: Alert, NAD HEENT: Normal conjunctiva, sclera anicteric CV: Regular rate and rhythm, no edema Pulm: diminished breath sounds, no crackles. Mild scattered wheezes. ABD: Soft, nontender, nondistended Neuro: Normal speech, normal affect Problem List acute hypoxemic respiratory failure COPD with acute exacerbation Hypothyroid Tobacco abuse Clinically improved but still hypoxic. Continue nebs-Brovana, Atrovent. Prednisone. Pulm is following. Completed Zithromax. Continue to wean oxygen. Arranging for home oxygen. Obtain CTA thorax to further evaluate persistent hypoxia Tobacco cessation advised. .
[2021-09-05] MEDS: ACETAMINOPHEN 500 MG TAB PO PRN ×2 (12:31→20:55)
[2021-09-05] MEDS: HYDROCODONE/CHLORPHEN 5 ML/OSYR PO PRN ×2 (12:53→22:56)
[2021-09-05] MEDS: predniSONE 20 MG TAB PO SCH (20:56)
[2021-09-06] MEDS: IPRATROPIUM BROM 0.5MG/2.5ML NEB SCH ×3 (01:40→13:50)
[2021-09-06 05:37] VITALS: BP 127/67; TEMP 97.1
[2021-09-06] MEDS: GUAIFENESIN/CODEINE 5ML UCUP PO PRN ×2 (05:39→13:40)
[2021-09-06] MEDS: ACETAMINOPHEN 500 MG TAB PO PRN ×2 (05:39→13:40)
--- NOTE | 2021-09-06 06:45 | P.PN ---
Date of Service: 09/06/21 Subjective: ROS: 10 point ROS as noted above, otherwise negative Physical exam GEN: Alert, mild distress HEENT: Normal conjunctiva, sclera anicteric CV: Regular rate and rhythm, no edema Pulm: Diffuse wheeze heard bilaterally, on 3 L nasal cannula ABD: Soft, nontender, nondistended Neuro: Normal speech, normal affect Problem List acute hypoxemic respiratory failure secondary to acute on chronic COPD exacerbation Hypothyroid Tobacco abuse remains hypoxic CTA chest to further evaluate persistent hypoxia. unable to do yesterday/last night due to not large enough IV access Continue nebs-Brovana, Atrovent. Prednisone. Pulm is following. Completed Zithromax. Continue to wean oxygen. Arranging for home oxygen. Tobacco cessation advised. VTE: lovenox Code: full Dispo: anticipate dc home in ~1-2 days Time Spent Managing Pts Care (In Minutes): 35
[2021-09-06] MEDS: ARFORMOTEROL TARTRATE 15 MCG/2 ML VIAL.NEB NEB SCH (07:55)
[2021-09-06] MEDS: ENOXAPARIN 40 MG/0.4 ML SQ SCH (08:44)
[2021-09-06] MEDS: predniSONE 20 MG TAB PO SCH (08:44)
[2021-09-06 08:51] VITALS: O2SAT 96
[2021-09-06] MEDS ORDERED: AZITHROMYCIN 250 MG TAB PO SCH (12:23)
[2021-09-06] MEDS ORDERED: DULERA 200/5 (MOMETASONE/FORMOTEROL) INHALER IH SCH (12:23)
--- NOTE | 2021-09-06 12:24 | P.PN ---
Subjective Date of Service: 09/06/21 Chief Complaint: COPD exacerbation Patient's condition is stable still still feels very short of breath wheezing home O2 been set up Review of Systems General: Weakness Respiratory: Shortness of Breath Physical Examination - Vital Signs Temperature: 97.1 F Blood Pressure: 127/67 Pulse: 70 Respirations: 16 Pulse Ox (%): 99 - Physical Exam General: Alert, Oriented x3 Respiratory: Expiratory wheezes Cardiovascular: No edema, Regular rate/rhythm Assessment & Plan - Problems (Diagnosis) (1) COPD exacerbation Current Visit: Yes Status: Acute Plan: Patient's condition is stable she is not had a significant improvement since being in the hospital she still has bilateral wheezing recommend DC Vipul change her to Dulera add Zithromax for anti-inflammatory purposes continue with prednisone patient can go home on Dulera from the hospital
--- NOTE | 2021-09-06 13:25 | RAD REPORT ---
EXAM DESCRIPTION: CT - Chest For Pe Angio - 09/06/2021 1:18 pm CLINICAL HISTORY: Chest pain. Hypoxia COMPARISON: Chest For Pe Angio dated 04/15/2020 TECHNIQUE: CT angiogram of the pulmonary arteries was performed with MIP. All CT scans are performed using dose optimization technique as appropriate and may include automated exposure control or mA/KV adjustment according to patient size. FINDINGS: No evidence of pulmonary thromboembolism. No acute aortic finding demonstrated. The lungs are mildly emphysematous but clear. No significant pericardial or pleural fluid. No concerning bony finding. IMPRESSION: No evidence of pulmonary thromboembolism. Mild emphysema.
--- NOTE | 2021-09-06 13:46 | P.DS ---
Admission Date: 08/28/21 Discharge Date: 09/06/21 Disposition: ROUTINE DISCHARGE Discharge Condition: GOOD Reason for Admission: COPD exacerbation Consultations: Pulmonology Procedures: CTA chest (09/06): FINDINGS: No evidence of pulmonary thromboembolism. No acute aortic finding demonstrated. The lungs are mildly emphysematous but clear. No significant pericardial or pleural fluid. No concerning bony finding. IMPRESSION: No evidence of pulmonary thromboembolism. Mild emphysema. Problem List acute hypoxemic respiratory failure secondary to acute on chronic COPD exacerbation Hypothyroid Tobacco abuse Brief History of Present Illness: 56yo F, PMH: COPD, hypothyroid, presented to ED due to 2 days of progressively worsening SOB. Associated with chills last night, wheeze, and cough. Also with headache over last week. Has not smoked in ~2 weeks. Recently discharged a few days ago for COPD exacerbation. States she has been taking prednisone 20mg BID and using her inhalers with no help. Didn't sleep much last night. In the ED, found to be tachypneic and hypoxic on room air. Placed on oxygen, given steroids, and nebs. Hospital Course: Patient was found to have COPD exacerbation. She had improvement with treatment with steroids and inhalers. Pulmonology was consulted and made adjustments to her medications. She continued with some wheeze throughout hospitalization and still required 2L NC. Pulmonology team patient was stable for discharge. Home oxygen was set up prior to discharge. Discharged home with several more days of prednisone and azithromycin (for anti-inflammatory effect). CTA chest was performed on 09/06, negative for pneumonia, negative for PE. CT noted emphysematous changes of the lungs. Follow-up with pulmonology in 1-2 weeks. Advised on tobacco cessation. Vital Signs/Physical Exam: Physical exam GEN: Alert, NAD HEENT: Normal conjunctiva, sclera anicteric CV: Regular rate and rhythm, no edema Pulm: diminished breath sounds, no crackles. Mild scattered wheezes. ABD: Soft, nontender, nondistended Neuro: Normal speech, normal affect Temp Pulse Resp BP Pulse Ox 97.1 F 70 16 127/67 99 09/06/21 12:25 09/06/21 12:25 09/06/21 12:25 09/06/21 12:25 09/06/21 12:25 Laboratory Data at Discharge: WBC 13.40 K/uL (4.3-10.9) H D 09/05/21 05:14 Hgb 13.6 g/dL (12.0-15.0) 09/05/21 05:14 Hct 41.8 % (36.0-45.0) 09/05/21 05:14 Plt Count 269 K/uL (152-406) D 09/05/21 05:14 PT 11.5 SECONDS (9.5-12.5) 08/28/21 06:15 INR 1.00 08/28/21 06:15 Sodium 137 mmol/L (136-145) 09/05/21 05:14 Potassium 4.2 mmol/L (3.5-5.1) 09/05/21 05:14 BUN 24 mg/dL (7-18) H 09/05/21 05:14 Creatinine 0.57 mg/dL (0.55-1.3) 09/05/21 05:14 Glucose 164 mg/dL (74-106) H 09/05/21 05:14 Magnesium 2.4 mg/dL (1.8-2.4) 08/29/21 04:52 Total Bilirubin 0.2 mg/dL (0.2-1.0) 08/28/21 06:15 AST 15 U/L (15-37) 08/28/21 06:15 ALT 31 U/L (12-78) 08/28/21 06:15 Alkaline Phosphatase 83 U/L (45-117) 08/28/21 06:15 Home Medications: Albuterol Inhaler [Ventolin Inhaler*] 2 puff IH TID PRN #1 hfa.aer.ad 08/25/21 Budesonide/Formoterol Fumarate [Symbicort 160-4.5 Mcg Inhaler] 2 puff IH BID #1 hfa.aer.ad 08/25/21 Nicotine [Nicoderm*] 21 mg TD DAILY #30 patch.td24 08/25/21 Azithromycin Tab [Zithromax*] 250 mg PO DAILY 5 Days #5 tab 09/06/21 Benzonatate [Tessalon Perle*] 100 mg PO TID PRN 5 Days #15 cap 09/06/21 Mometasone/Formoterol [Dulera 200 Mcg/5 Mcg Inhaler] 2 puff IH BID inhaler 09/06/21 predniSONE [Prednisone*] 20 mg PO SEECOM 10 Days #15 tab 09/06/21 New Medications: predniSONE [Prednisone*] 20 mg PO SEECOM 10 Days #15 tab Benzonatate [Tessalon Perle*] 100 mg PO TID PRN 5 Days #15 cap PRN Reason: Cough Azithromycin Tab [Zithromax*] 250 mg PO DAILY 5 Days #5 tab Physician Discharge Instructions: Patient was found to have COPD exacerbation. She had improvement with treatment with steroids and inhalers. Pulmonology was consulted and made adjustments to her medications. She continued with some wheeze throughout hospitalization and still required 2L NC. Pulmonology team patient was stable for discharge. Home oxygen was set up prior to discharge. Discharged home with several more days of prednisone and azithromycin (for anti-inflammatory effect). CTA chest was performed on 09/06, negative for pneumonia, negative for PE. CT noted emphysematous changes of the lungs. Follow-up with pulmonology in 1-2 weeks. Advised on tobacco cessation. Diet: Regular Activity: Ad wolf Followup: Unknown,U [Primary Care Provider] - Time spent managing pt's care (in minutes): 45
== END 2021-09-06 03:40 | disposition home or self-care (01) | DRG 190 ==
LOC: ER 05:32 → ERHOLD 06:52 → 2ND 10:03
PROVIDERS: ADMIT Hospitalist; ATTEND Hospitalist
DX: J44.1 Chronic obstructive pulmonary disease with (acute) exacerbation (principal); J96.01 Acute respiratory failure with hypoxia; E03.9 Hypothyroidism, unspecified; E78.5 Hyperlipidemia, unspecified; F17.200 Nicotine dependence, unspecified, uncomplicated; Z79.52 Long term (current) use of systemic steroids; Z79.899 Other long term (current) drug therapy; Z20.822 Contact with and (suspected) exposure to COVID-19
CPT/HCPCS: 0240U; 0241U; 36415; 71045; 71275; 80048; 80076; 81003; 83735; 83880; 84145; 84439; 84443; 84484; 85025; 85610; 87040; 87070; 87081; 87205; 93005; 94640; 94760; 96374; 96375; 97116; 97161; 99285; G0378; J1650; J2920; J2930; J3475; J7030; J7040; J7512; J7605; J7606; Q9967